=== PATIENT | male | born 1945 | race Caucasian/White ===

== ENCOUNTER 2019-10-29 12:46 | Outpatient (CLI) | payer OTHER | END 2019-10-29 12:47 | disposition home or self-care (01) | LOC: NS 12:46 | PROVIDERS: ATTEND Nurse Practitioner Family | DX: Z71.3 Dietary counseling and surveillance (principal); E11.9 Type 2 diabetes mellitus without complications; Z79.4 Long term (current) use of insulin | CPT/HCPCS: 97802 ==

== ENCOUNTER 2019-11-13 12:44 | Outpatient (CLI) | payer OTHER | END 2019-11-13 12:45 | disposition home or self-care (01) | LOC: NS 12:44 | PROVIDERS: ATTEND Student in an Organized Health Care Education/Training Program | DX: Z71.3 Dietary counseling and surveillance (principal); E11.9 Type 2 diabetes mellitus without complications; Z79.4 Long term (current) use of insulin; I10 Essential (primary) hypertension; E78.5 Hyperlipidemia, unspecified | CPT/HCPCS: 97803 ==

== ENCOUNTER 2022-12-14 16:58 | Outpatient (CLI) | payer OTHER | END 2022-12-14 23:59 | disposition critical access hospital (66) | LOC: EMS 16:58 | DX: R41.0 Disorientation, unspecified (principal); R42 Dizziness and giddiness | CPT/HCPCS: A0425; A0429 ==

== ENCOUNTER 2022-12-14 17:12 | Emergency (ER) | payer OTHER ==
[2022-12-14] MEDS ORDERED: SODIUM CHLORIDE 0.9% 1,000 ML IV STA (17:27)
--- NOTE | 2022-12-14 17:30 | ED Physician Documentation ---
History of Present Illness - Stated complaint Stated Complaint: CONFUSION/DIZZY - Chief complaint Chief Complaint: Neuro - Additonal information Additional information: 77-year-old male presents the emergency department for evaluation of a syncopal event that was preceded by sensation of feeling off balance dizzy and having neck pain. The patient reports he was working in his workshop trying to put things together. Denies that it was strenuous when he began to feel suddenly faint and off balance. He thought that he would sit down. However the next thing he remembers is that he was on the ground. He denies chest pain, back pain or shortness of air. States he had a similar event last week though without syncope. Past medical history most significant for hypertension. Non-smoker. No alcohol use. Not anticoagulated. Patient reports incidental history that about 2 weeks ago he underwent lithotripsy as well as left ureter stent placement in his kidney at [facility] for renal stones. He is aware that he has abnormal kidney function, Though he does not know the specifics. Review of Systems Constitutional: denies: Fever Nose: reports: Reviewed and negative Cardiac: denies: Chest pain / pressure, Palpitations, Pedal edema Respiratory: reports: Reviewed and negative GI: reports: Reviewed and negative : reports: Reviewed and negative Skin: reports: Reviewed and negative Musculoskeletal: reports: Neck pain Neurologic: reports: Syncope. denies: Seizure, Confused, Headache, Head injury, LOC PD PAST MEDICAL HISTORY - Past Medical History Cardiovascular: Hypertension Endocrine/Autoimmune: Type 2 diabetes - Past Surgical History Past Surgical History: Yes General: Colonoscopy - Present Medications Home Medications: Ambulatory Orders Medication Instructions Recorded Confirmed Atorvastatin [Lipitor] 20 mg PO DAILY 11/21/14 12/14/22 Fluticasone [Flonase] 1 spray .ROUTE DAILY 11/21/14 12/14/22 amLODIPine [Norvasc] 10 mg PO DAILY 11/21/14 12/14/22 atenoloL [Atenolol] 100 mg PO DAILY 11/21/14 12/14/22 Alfuzosin HCl [Alfuzosin HCl ER] 10 mg PO DAILY 12/14/22 12/14/22 Insulin Aspart [NovoLOG] 0 units SQ TID 12/14/22 12/14/22 Insulin Glargine [Lantus Solostar] 30 unit SQ HS 12/14/22 12/14/22 Isosorbide Mononitrate [Isosorbide 30 mg PO DAILY 12/14/22 12/14/22 Mononitrate ER] Isosorbide Mononitrate [Isosorbide 60 mg PO DAILY 12/14/22 12/14/22 Mononitrate ER] Levothyroxine [Synthroid] 25 mcg PO QDAC 12/14/22 12/14/22 Loratadine [Claritin] 10 mg PO DAILY 12/14/22 12/14/22 Omeprazole Magnesium 20 mg PO DAILY 12/14/22 12/14/22 - Allergies Allergies/Adverse Reactions: Allergies Allergy/AdvReac Type Severity Reaction Status Date / Time azithromycin [From Zithromax] Allergy Rash Verified 12/14/22 17:49 Penicillins Allergy Unknown Verified 12/14/22 17:49 - Social History Does the pt smoke?: No Smoking Status: Never smoker Does the pt drink ETOH?: No Does the pt have substance abuse?: No PD ED PE NORMAL - General General: Alert and oriented X 3, No acute distress, Well developed/nourished - HEENT HEENT: Atraumatic, Moist mucous membranes - Neck Neck: Supple, no meningeal sign, No adenopathy - Cardiac Cardiac: RRR, No murmur - Respiratory Respiratory: No respiratory distress, Clear bilaterally - Abdomen Abdomen: Normal bowel sounds, Soft - Back Back: No CVA TTP, No spinal TTP - Derm Derm: Normal color, Warm and dry, No rash - Extremities Extremities: No deformity - Neuro Neuro: Alert and oriented X 3, 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 Eye Opening: Spontaneous Motor: Obeys Commands Verbal: Oriented GCS Score: 15 Results - Vitals Vitals: Vital Signs - 24 hr 12/14/22 12/14/22 12/14/22 17:21 17:40 17:56 Temperature 37.1 C 36.6 C Heart Rate 66 68 63 Heart Rate [ 66 Sitting] Heart Rate [ 69 Standing] Heart Rate [ 69 Supine] Respiratory 16 16 Rate Blood Pressure 112/67 112/67 124/61 Blood Pressure 130/70 [Sitting] Blood Pressure 129/60 [Standing] Blood Pressure 111/65 [Supine] O2 Saturation 98 96 96 12/14/22 12/14/22 12/14/22 18:30 19:10 19:26 Temperature Heart Rate 63 66 62 Heart Rate [ Sitting] Heart Rate [ Standing] Heart Rate [ Supine] Respiratory 16 17 15 Rate Blood Pressure 106/55 L 105/88 H 124/63 Blood Pressure [Sitting] Blood Pressure [Standing] Blood Pressure [Supine] O2 Saturation 96 97 96 12/14/22 20:00 Temperature Heart Rate 63 Heart Rate [ Sitting] Heart Rate [ Standing] Heart Rate [ Supine] Respiratory 15 Rate Blood Pressure 113/62 Blood Pressure [Sitting] Blood Pressure [Standing] Blood Pressure [Supine] O2 Saturation 96 Oxygen O2 Source Room air - EKG (time done) 1728 EKG releavant findings:: EKG personally interpreted by author of this note. Relevant findings are: Rate: Rate (enter#) (62) Rhythm: NSR [place]: Normal Intervals: Normal MA. No: Prolonged QT QRS: LVH Ischemia: Non specific changes (inferior leads) Compare to prior EKG: Old EKG unavailable Computer interpretation: Agree with computer - Labs Labs: Laboratory Tests 12/14/22 12/14/22 12/14/22 17:19 17:19 17:19 WBC 7.9 RBC 4.88 Hgb 14.5 Hct 42.7 MCV 87.5 MCH 29.7 MCHC 34.0 RDW 13.2 Plt Count 192 MPV 10.1 Neut # (Auto) 5.0 Lymph # (Auto) 1.9 Walton # (Auto) 0.7 Eos # (Auto) 0.2 Baso # (Auto) 0.1 Absolute Nucleated RBC 0.00 Nucleated RBC % 0.0 PT 12.9 H INR 1.2 Sodium 138 Potassium 3.4 L Chloride 102 Carbon Dioxide 27 Anion Gap 9.0 BUN 18 Creatinine 2.6 H Estimated GFR (MDRD) 24 L Glucose 127 H Calcium 9.1 Total Bilirubin 1.0 AST 32 ALT 29 Alkaline Phosphatase 70 Troponin I High Sens B-Natriuretic Peptide Total Protein 7.0 Albumin 3.5 Globulin 3.5 Albumin/Globulin Ratio 1.0 Lipase 32 12/14/22 12/14/22 12/14/22 17:19 17:19 19:19 WBC RBC Hgb Hct MCV MCH MCHC RDW Plt Count MPV Neut # (Auto) Lymph # (Auto) Walton # (Auto) Eos # (Auto) Baso # (Auto) Absolute Nucleated RBC Nucleated RBC % PT INR Sodium Potassium Chloride Carbon Dioxide Anion Gap BUN Creatinine Estimated GFR (MDRD) Glucose Calcium Total Bilirubin AST ALT Alkaline Phosphatase Troponin I High Sens 27.3 H* 30.4 H* B-Natriuretic Peptide 46 Total Protein Albumin Globulin Albumin/Globulin Ratio Lipase - Rads (name of study) cxr Relevant Findings:: Final report received (No acute cardiopulmonary process) MRA head Relevant Findings:: Final report received (Normal anterior and posterior circulations. No high-grade stenosis or occlusion) carotid US Relevant Findings:: Other (Per fastener technologist. Less than 50% stenosis of bilateral ICA) PD Medical Decision Making - ED course Complexity details: reviewed results, re-evaluated patient, considered differential, d/w patient ED course: 77-year-old male presents to the emergency department for evaluation of what appears to be syncope. He was working in his workshop at home trying to put together small parts when he began to feel suddenly dizzy and off balance. He went to sit in a chair and the next thing he remembers he woke up on the ground next to the chair. He denies that he was having chest pain or shortness of air. Patient has past medical history Mo significant for hypertension. He also underwent left ureter stenting with his urologist at [facility] about 2 weeks ago. He does report to me that he has some chronic kidney disease. On presentation to the emergency department he is alert and well-appearing. His NIHSS score is 0. He was placed on a monitor and found to be in sinus rhythm. His EKG is nonischemic per my interpretation. We did obtain orthostatic blood pressures that were negative for findings of orthostasis. We did obtain a CBC electrolytes and troponin. The CBC showed no acute worrisome findings. His electrolytes do show a normal BUN but a creatinine of 2.6 which I believe is likely chronic based on the patient's history though I cannot corroborate this. There were no other worrisome electrolyte derangements. Patient's initial troponin was 27. On repeat later it was 30. This is essentially static. I believe the troponin is elevated given the chronic kidney disease. Given the fact that it remained static and there were no reports of chest pain and a nonischemic EKG I do not believe that further work- up is warranted through the hospital but given his age and history he would certainly benefit from an outpatient stress test/echocardiogram. However given the reported feeling off balance history an MRA of his head was obtained to rule out findings of cerebral aneurysm or stenosis Or vertebral artery stenosis as a cause of feeling off balance. The MRA as interpreted by the radiologist was ultimately negative. We also obtained carotid ultrasounds Which showed no acute stenosis. Ultimately the patient was able to ambulate well in the hallway without any atax ia noted. As such at this point he is discharged home in stable condition with instructions to follow-up with his PCP for outpatient stress test and echocardiogram as well as to discuss the syncopal episode, chronic kidney disease and mildly elevated troponin Departure - Departure Disposition: 01 Home, Self Care Clinical Impression: Dizzy, Elevated serum creatinine, Elevated troponin Syncope Qualifiers: Syncope type: unspecified Qualified Code(s): R55 - Syncope and collapse Condition: Stable Record reviewed to determine appropriate education?: Yes Follow-Up: Tyler Daugherty MD [Primary Care Provider] - Comments: Tyshawn anne came to the emergency department today because this afternoon your workshop you began to feel dizzy and off balance. You sat in a chair and then you fainted. Here in the emergency department we did do an MRI of the blood vessels in your brain. We do not have anything to suggest stroke, aneurysm or reduced blood flow. The carotid ultrasounds completed of the vessels in your neck also showed no significant stenosis in either carotid artery. Your labs today show that you have an elevated creatinine of 2.6. I believe that this is likely chronic given your history. Your troponin was mildly elevated today. Troponin is a chemical that can be released from the heart when you are having a heart attack however your elevation was not in a significant derangement. I believe the troponin is mildly elevated due to your kidney disease. It is critical that you discuss this ED visit with Dr. Daugherty. You should be referred for an outpatient stress test or echocardiogram as soon as possible. You will also need to discuss this fainting episode with him. It is important that you stay well-hydrated. If at any point you have worsening symptoms, have recurrent syncope, have any vomiting, chest pain or shortness of air you should return immediately to the ER for repeat evaluation NIHSS - Time Time: 17:25 - Level of Consciousness Level of consciousness: (0) Alert, Keenly responsive LOC Questions: (0) Answers both Q's correct LOC Commands: (0) Performs both correctly - Gaze Best Gaze: (0) Normal - Visual Visual: (0) No loss - Facial Palsy Facial Palsy: (0) Normal, symmetrical movement - Motor Arms (both separate) Motor Arm (right): (0) No drift Motor Arm (left): (0) No drift - Motor Legs (both separate) Motor Leg (right): (0) No drift Motor Leg (left): (0) No drift - Limb Ataxia Limb Ataxia: (0) Absent - Sensory Sensory: (0) Normal - Best Language Best Language: (0) No aphasia - Dysarthria Dysarthria: (0) Normal - Extinction and Inattention (formally neg Extinction and inattention: (0) No abnormality - Total Score/Results Total Score/Result: 0
[2022-12-14 17:31] LABS: BASOPHILS # (AUTO) 0.1 10^3/uL (0.0-0.1); BASOPHILS % (AUTO) 0.8 %; EOSINOPHILS # (AUTO) 0.2 10^3/uL (0.0-0.7); EOSINOPHILS % (AUTO) 2.3 %; HCT - HEMATOCRIT 42.7 % (42.0-52.0); HGB - HEMOGLOBIN 14.5 g/dL (14.0-18.0); LYMPHOCYTES # (AUTO) 1.9 10^3/uL (1.5-3.5); LYMPHOCYTES % (AUTO) 24.1 %; MEAN CORPUSCULAR HEMOGLOBIN 29.7 pg (27.0-31.0); MEAN CORPUSCULAR VOLUME 87.5 fL (80.0-94.0); MEAN PLATELET VOLUME 10.1 fL (7.4-11.4); MONOCYTES # (AUTO) 0.7 10^3/uL (0.0-1.0); MONOCYTES % (AUTO) 9.1 %; NEUTROPHILS % (AUTO) 63.3 %; PLT - PLATELET COUNT 192 10^3/uL (130-450); RED BLOOD COUNT 4.88 10^6/uL (4.70-6.10); RED CELL DISTRIBUTION WIDTH 13.2 % (12.0-15.0); WHITE BLOOD COUNT 7.9 x10^3/uL (4.8-10.8)
[2022-12-14] MEDS ORDERED: iohexoL-300 100 ML VIAL ONE (17:37)
[2022-12-14 17:43] LABS: ALBUMIN 3.5 g/dL (3.2-5.5); CALCIUM 9.1 mg/dL (8.5-10.3); CREATININE 2.6 mg/dL (0.6-1.2); POTASSIUM 3.4 mmol/L (3.5-5.0)
--- OUTSIDE RECORDS SUMMARY | 2022-12-14 17:48 | EXTERNAL MEDICAL SUMMARY RPT | Continuity of Care Document ---
:1945 Author Organization [facility] Address [address] [place] [address] Phone Care Team Providers Name Role Phone Unavailable Unavailable Unavailable Tyler Daugherty Unavailable Unavailable Allergies and Intolerances date description facility type (no date) Mild [facility] (unknown) (no date) Penicillins [facility] (unknown) (no date) ciprofloxacin [facility] (unknown) (no date) sulfamethoxazole [facility] (unknown) (no date) trimethoprim [facility] (unknown) Encounters No information. Functional Status No information. Immunizations No information. Medications date description facility 2022-11-13 00:00 Phenazopyridine [facility] Problems date description facility 2022-09-28 14:33 Abnormal findings on diagnostic imaging of [facility] other specified b 2022-09-28 14:33 Elevated prostate specific antigen [PSA ] [facility] 2022-10-01 09:08 Abnormal findings on diagnostic imaging of [facility] other specified b 2022-10-01 09:08 Elevated prostate specific antigen [PSA ] [facility] 2022-10-16 12:02 [facility] 2022-10-16 12:02 Other microscopic hematuria [facility] 2022-10-17 09:02 [facility] 2022-10-17 09:02 Other microscopic hematuria [facility] 2022-10-17 09:03 [facility] 2022-10-17 09:03 Other microscopic hematuria [facility] 2022-10-22 00:00 [facility] 2022-10-22 13:54 [facility] 2022-10-23 08:49 [facility] 2022-10-23 13:45 [facility] 2022-10-25 13:15 [facility] 2022-11-13 11:17 [facility] 2022-11-13 11:20 [facility] 2022-11-13 11:30 [facility] 2022-11-13 13:48 [facility] 2022-11-13 13:48 Presence of urogenital implants [facility] 2022-11-13 13:59 [facility] 2022-11-13 13:59 Presence of urogenital implants [facility] 2022-11-13 15:45 [facility] 2022-11-13 15:45 Presence of urogenital implants [facility] 2022-11-14 10:04 [facility] 2022-11-14 10:04 Presence of urogenital implants [facility] 2022-11-23 09:07 [facility] 2022-11-26 15:25 Urinary tract infection, site not speci [facility] 2022-11-27 01:11 [facility] 2022-11-27 10:20 Urinary tract infection, site not speci [facility] 2022-11-27 13:50 Urinary tract infection, site not speci [facility] 2022-11-29 13:31 Urinary tract infection, site not speci [facility] 2022-12-13 08:42 [facility] Procedures date description facility 2022-10-22 00:00 XR [facility] 2022-11-22 00:00 XR [facility] 2022-12-12 00:00 XR [facility] 2022-10-16 00:00 CT abdomen pelvis wo/w [facility] 2022-11-13 00:00 Extracorporeal Shock Wave Lithotripsy ( Left) [facility] Results/Labs test date author facility value unit interpret ation Result panel 1 (unknown) (no date) (unknown) [facility] ([facility] unknown) Result panel 2 (unknown) (no date) (unknown) [facility] (no value[facility] Result panel 3 (unknown) (no date) (unknown) [facility] ([facility]) Result panel 4 (unknown) (no date) (unknown) [facility] (no value) [facility] unknown) Result panel 5 (unknown) (no (unknown) (unknown) (no value) (units (unk nown) date) unknown) (unknown) (no (unknown) (unknown) [id number] (units (unkn own) date) unknown) (unknown) (no (unknown) (unknown) 09/28/22 (units (unkno wn) date) unknown) (unknown) (no (unknown) (unknown) 1. Marked (units (unkn own) date) prostatomegaly. unknown) Numerous BPH nodules. (unknown) (no (unknown) (unknown) [address] (units (unknown) date) unknown) (unknown) (no (unknown) (unknown) 2. Left mid (units (un known) date) gland unknown) transitional zone observation measuring 0.5 cm. PI-RADS 3. (unknown) (no (unknown) (unknown) 3. No enlarged (units (unknown) date) lymph nodes. unknown) (unknown) (no (unknown) (unknown) ADC may be (units (unk nown) date) performed. unknown) (unknown) (no (unknown) (unknown) Accession (units (unkn own) date) Number: unknown) [id number] (unknown) (no (unknown) (unknown) After (units (unkno wn) date) unknown) (unknown) (no (unknown) (unknown) Age/Sex: 77 / M (units (unknown) date) Date of Service: unknown) (unknown) (no (unknown) (unknown) [place], [place] (units ( unknown) date) [id number] unknown) (unknown) (no (unknown) (unknown) Approved by: (units (u nknown) date) Alexandru Cherry M.D. unknown) on 09/28/2022 at 17:35 (unknown) (no (unknown) (unknown) Bones: Marrow (units ( unknown) date) demonstrates unknown) normal overall signal, without lesions to suggest (unknown) (no (unknown) (unknown) Bowel and (units (unkn own) date) peritoneum: No unknown) pathologic free pelvic fluid. Inferior colon and (unknown) (no (unknown) (unknown) COMPARISON: (units (un known) date) None. unknown) (unknown) (no (unknown) (unknown) Coronal HASTE, (units (unknown) date) axial T1 FSE with unknown) fat saturation, 3-plane nonbreath-hold T2 FSE. (unknown) (no (unknown) (unknown) : 1945 (units (unknown) date) Acct:[id number] unknown) (unknown) (no (unknown) (unknown) Dictated by: (units (u nknown) date) Alexandru hCerry M.D. unknown) on 09/28/2022 at 17:25 (unknown) (no (unknown) (unknown) Diffusion (units (unkn own) date) weighted imaging unknown) (DWI) morphology score: (unknown) (no (unknown) (unknown) Dynamic contrast (units (unknown) date) enhancement unknown) (DCE): (unknown) (no (unknown) (unknown) FINDINGS: (units (unkn own) date) unknown) (unknown) (no (unknown) (unknown) FLASH with fat (units (unknown) date) saturation unknown) through the pelvis. Optional diffusion weighted (unknown) (no (unknown) (unknown) Favor BPH (units (unkn own) date) unknown) (unknown) (no (unknown) (unknown) Genitourinary (units ( unknown) date) system: Bladder unknown) has a trabeculated appearance. Distal ureters (unknown) (no (unknown) (unknown) IMPRESSION: (units (un known) date) unknown) (unknown) (no (unknown) (unknown) INDICATIONS: (units (u nknown) date) Elevated prostate unknown) specific antigen [PSA] (unknown) (no (unknown) (unknown) Image quality: (units (unknown) date) Diffusion unknown) weighted and dynamic contrast enhanced images are (unknown) (no (unknown) (unknown) [facility] (units (unknown) date) unknown) (unknown) (no (unknown) (unknown) Lesion 1: 0.7 x (units (unknown) date) 0.4 cm, (12/22) unknown) (unknown) (no (unknown) (unknown) Lesion 1: 3 (units (un known) date) unknown) (unknown) (no (unknown) (unknown) Lesion 1: 4 (units (un known) date) unknown) (unknown) (no (unknown) (unknown) Lesion 1: Left (units (unknown) date) mid gland unknown) transitional zone (unknown) (no (unknown) (unknown) Lesion 1: Oval (units (unknown) date) unknown) (unknown) (no (unknown) (unknown) Lesion 1: (units (unkn own) date) PI-RADS 3 unknown) (unknown) (no (unknown) (unknown) Lesion 1: (units (unkn own) date) Present unknown) (unknown) (no (unknown) (unknown) Lesion PI-RADS (units (unknown) date) score: unknown) (unknown) (no (unknown) (unknown) Lesion (units (unkno wn) date) description: unknown) (unknown) (no (unknown) (unknown) Lesion (units (unkno wn) date) location(s) unknown) (sector): (unknown) (no (unknown) (unknown) Lesion size(s): (units (unknown) date) unknown) (unknown) (no (unknown) (unknown) Loc: MRI (units (unkno wn) date) unknown) (unknown) (no (unknown) (unknown) Magnetic (units (unkno wn) date) Resonance Report unknown) (unknown) (no (unknown) (unknown) Multiple BPH (units (u nknown) date) unknown) (unknown) (no (unknown) (unknown) No (units (unkno wn) date) unknown) (unknown) (no (unknown) (unknown) Nodes and (units (unkn own) date) vessels: No unknown) pelvic or inguinal adenopathy by size criteria. Iliac (unknown) (no (unknown) (unknown) Ordering (units (unkno wn) date) Provider: unknown) Maxx Roberson MD (unknown) (no (unknown) (unknown) PROCEDURE: MR (units ( unknown) date) PELIS WO/W CON unknown) (unknown) (no (unknown) (unknown) Patient: (units (unkno wn) date) JaxTyshawn R unknown) MR#: [id number] (unknown) (no (unknown) (unknown) Procedure: MR (units ( unknown) date) pelvis wo/w con unknown) (unknown) (no (unknown) (unknown) Prostate: Gland (units (unknown) date) size is 7.8 x 6.6 unknown) x 6.2 cm; ellipsoid gland volume is 166 mL. (unknown) (no (unknown) (unknown) Signed (units (unkno wn) date) unknown) (unknown) (no (unknown) (unknown) Soft tissues: No (units (unknown) date) inguinal hernias. unknown) (unknown) (no (unknown) (unknown) T2 weighted (units (un known) date) imaging (T2WI) unknown) morphology score: (unknown) (no (unknown) (unknown) TECHNIQUE: (units (unk nown) date) unknown) (unknown) (no (unknown) (unknown) are non (units (unkno wn) date) unknown) (unknown) (no (unknown) (unknown) diagnostic. (units (un known) date) unknown) (unknown) (no (unknown) (unknown) distended. (units (unk nown) date) unknown) (unknown) (no (unknown) (unknown) imaging and (units (un known) date) unknown) (unknown) (no (unknown) (unknown) loops are normal (units (unknown) date) in caliber. unknown) Diverticulosis. Normal appendix. (unknown) (no (unknown) (unknown) metastases. (units (un known) date) unknown) (unknown) (no (unknown) (unknown) nodule. (units (unkno wn) date) unknown) (unknown) (no (unknown) (unknown) nodules. (units (unkno wn) date) unknown) (unknown) (no (unknown) (unknown) normal in (units (unkn own) date) caliber. unknown) (unknown) (no (unknown) (unknown) or 2-D (units (unkno wn) date) unknown) (unknown) (no (unknown) (unknown) significant foci (units (unknown) date) of intrinsic T1 unknown) hyperintensity to suggest hemorrhage. (unknown) (no (unknown) (unknown) small bowel (units (un known) date) unknown) (unknown) (no (unknown) (unknown) the (units (unkno wn) date) administration of unknown) contrast, dynamic axial, delayed axial and coronal VIBE (unknown) (no (unknown) (unknown) vessels are (units (un known) date) unknown) Result panel 6 (unknown) (no date) (unknown) (unknown) 1.77 mg/dl (unkn own) (unknown) (no date) (unknown) (unknown) 39 ml/min (unkn own) (unknown) (no date) (unknown) (unknown) 39 ml/min (unkn own) Result panel 7 (unknown) (no (unknown) (unknown) (no value) (units (unk nown) date) unknown) (unknown) (no (unknown) (unknown) [id number] (units (unkno wn) date) unknown) (unknown) (no (unknown) (unknown) 10/22/22 (units (unkno wn) date) unknown) (unknown) (no (unknown) (unknown) Abnormal (units (unkno wn) date) ultrasound of unknown) prostate (unknown) (no (unknown) (unknown) Age/Sex: 77 / M (units (unknown) date) Date of Service: unknown) (unknown) (no (unknown) (unknown) Allergies (units (unkn own) date) unknown) (unknown) (no (unknown) (unknown) [place], [place] (units ( unknown) date) [id number] unknown) (unknown) (no (unknown) (unknown) Asymptomatic (units (u nknown) date) microscopic unknown) hematuria (unknown) (no (unknown) (unknown) Attending Dr: (units ( unknown) date) Maxx Roberson MD unknown) (unknown) (no (unknown) (unknown) BPH (benign (units (un known) date) prostatic unknown) hyperplasia) (Unknown) (unknown) (no (unknown) (unknown) CKD (chronic (units (u nknown) date) kidney disease) unknown) (Unknown) (unknown) (no (unknown) (unknown) Colon polyps (units (u nknown) date) (Unknown) unknown) (unknown) (no (unknown) (unknown) : 1945 (units (unknown) date) Acct:[id number] unknown) (unknown) (no (unknown) (unknown) DOG DANDER Allergy (units (unknown) date) (Mild, Uncoded unknown) 10/22/22 13:07) (unknown) (no (unknown) (unknown) Dept at (units (unkno wn) date) . unknown) (unknown) (no (unknown) (unknown) Diabetes (Unknown) (units (unknown) date) unknown) (unknown) (no (unknown) (unknown) Documented By: (units (unknown) date) Maxx Roberson MD unknown) 10/22/22 1307 (unknown) (no (unknown) (unknown) Draft (units (unkno wn) date) unknown) (unknown) (no (unknown) (unknown) Elevated PSA (units (u nknown) date) unknown) (unknown) (no (unknown) (unknown) Family History (units (unknown) date) (Reviewed 08/21/18 unknown) @ 15:25 by Greer Flores MD) (unknown) (no (unknown) (unknown) Father (units (unknown) date) Cancer unknown) (unknown) (no (unknown) (unknown) GERD (units (unkno wn) date) (gastroesophageal unknown) reflux disease) (Unknown) (unknown) (no (unknown) (unknown) Health Management (units (unknown) date) reviewed with unknown) patient: No (unknown) (no (unknown) (unknown) Health Management (units (unknown) date) unknown) (unknown) (no (unknown) (unknown) Hearing loss (units (u nknown) date) () unknown) (unknown) (no (unknown) (unknown) History of kidney (units (unknown) date) stones unknown) (unknown) (no (unknown) (unknown) History of (units (unk nown) date) tonsillectomy unknown) (unknown) (no (unknown) (unknown) Hypertension (units (u nknown) date) (Unknown) unknown) (unknown) (no (unknown) (unknown) Hypothyroidism (units (unknown) date) (Unknown) unknown) (unknown) (no (unknown) (unknown) Intake Note: (units (u nknown) date) unknown) (unknown) (no (unknown) (unknown) Intake performed (units (unknown) date) by: Valentina Lopez unknown) (unknown) (no (unknown) (unknown) Intake (units (unkno wn) date) unknown) (unknown) (no (unknown) (unknown) Intake- Clincial (units (unknown) date) Staff unknown) (unknown) (no (unknown) (unknown) [facility] (units (unknown) date) unknown) (unknown) (no (unknown) (unknown) Kidney stone (units (u nknown) date) unknown) (unknown) (no (unknown) (unknown) Loc: [facility] (units (unkno wn) date) unknown) (unknown) (no (unknown) (unknown) Medical History (units (unknown) date) (Updated 08/21/22 @ unknown) 10:50 by Maxx Roberson MD) (unknown) (no (unknown) (unknown) Mother (units (unknown) date) Cancer unknown) (unknown) (no (unknown) (unknown) Neuropathy (units (unk nown) date) (Unknown) unknown) (unknown) (no (unknown) (unknown) Osteopenia (units (unk nown) date) (07/2016) unknown) (unknown) (no (unknown) (unknown) PFSH (units (unkno wn) date) unknown) (unknown) (no (unknown) (unknown) Patient: (units (unkno wn) date) Tyshawn Camara unknown) MR#: [id number] (unknown) (no (unknown) (unknown) Penicillins (units (un known) date) Allergy (Unknown, unknown) Verified 10/22/22 13:07) (unknown) (no (unknown) (unknown) Previous (units (unkno wn) date) occupational unknown) history: retired (unknown) (no (unknown) (unknown) Pt present to (units ( unknown) date) follow up with the unknown) provider. (unknown) (no (unknown) (unknown) Reason For Visit (units (unknown) date) unknown) (unknown) (no (unknown) (unknown) Secondhand smoke (units (unknown) date) exposure unknown) (unknown) (no (unknown) (unknown) Signed By: (units (unk nown) date) unknown) (unknown) (no (unknown) (unknown) Smoking Status: (units (unknown) date) Never smoker unknown) (unknown) (no (unknown) (unknown) Social History (units (unknown) date) (Updated 08/20/22 @ unknown) 12:32 by Valentina Lopez RN) (unknown) (no (unknown) (unknown) Stroke (Unknown) (units (unknown) date) unknown) (unknown) (no (unknown) (unknown) Surgical History (units (unknown) date) (Reviewed 03/16/19 unknown) @ 15:33 by Adri Amador DO) (unknown) (no (unknown) (unknown) This note may have (units (unknown) date) been all or unknown) partially generated using voice recognition (unknown) (no (unknown) (unknown) Tobacco Status (units (unknown) date) unknown) (unknown) (no (unknown) (unknown) Type(s) of (units (unk nown) date) exercise: none unknown) (unknown) (no (unknown) (unknown) Urology Office (units (unknown) date) Visit unknown) (unknown) (no (unknown) (unknown) Visit Reasons: (units (unknown) date) review CT + MRI unknown) (unknown) (no (unknown) (unknown) alcohol intake: (units (unknown) date) current unknown) (unknown) (no (unknown) (unknown) caffeine: Yes (units ( unknown) date) unknown) (unknown) (no (unknown) (unknown) ciprofloxacin (units ( unknown) date) Allergy (Unknown, unknown) Verified 10/22/22 13:07) (unknown) (no (unknown) (unknown) have occurred. If (units (unknown) date) there are any unknown) questions, please contact the Medical Records (unknown) (no (unknown) (unknown) household members: (units (unknown) date) spouse unknown) (unknown) (no (unknown) (unknown) marital status: (units (unknown) date) unknown) (unknown) (no (unknown) (unknown) may occur. (units (unk nown) date) Occasional unknown) wrong-word or 'sound-alike' substitutions may have (unknown) (no (unknown) (unknown) number of (units (unkn own) date) children: 3 unknown) (unknown) (no (unknown) (unknown) occupational (units (u nknown) date) status: other unknown) (unknown) (no (unknown) (unknown) occurred due to (units (unknown) date) the inherent unknown) limitations of voice recognition software. Please (unknown) (no (unknown) (unknown) read the note (units ( unknown) date) carefully and unknown) recognize, using context, where these substitutions (unknown) (no (unknown) (unknown) second hand (units (un known) date) exposure: No unknown) (unknown) (no (unknown) (unknown) software. Although (units (unknown) date) every effort is unknown) made to edit content, business management consultant errors (unknown) (no (unknown) (unknown) substance use (units ( unknown) date) type: does not use unknown) (unknown) (no (unknown) (unknown) sulfamethoxazole (units (unknown) date) [From Bactrim] unknown) Allergy (Unknown, Verified 10/22/22 13:07) (unknown) (no (unknown) (unknown) trimethoprim [From (units (unknown) date) Bactrim] Allergy unknown) (Unknown, Verified 10/22/22 13:07) Result panel 8 (unknown) (no (unknown) (unknown) (no value) (units (unk nown) date) unknown) (unknown) (no (unknown) (unknown) [id number] (units (unkno wn) date) unknown) (unknown) (no (unknown) (unknown) 10/22/22 (units (unkno wn) date) unknown) (unknown) (no (unknown) (unknown) 10/22/22] (units (unkn own) date) unknown) (unknown) (no (unknown) (unknown) 01/31/21 [Rx (units (u nknown) date) Confirmed 10/22/22] unknown) (unknown) (no (unknown) (unknown) Abnormal (units (unkno wn) date) ultrasound of unknown) prostate (unknown) (no (unknown) (unknown) Accuchek Marcella (units (unknown) date) lancets - Softclix unknown) #250 ea 11/18/20 [Rx Confirmed 10/22/22] (unknown) (no (unknown) (unknown) Age/Sex: 77 / M (units (unknown) date) Date of Service: unknown) (unknown) (no (unknown) (unknown) Alcohol Prep Pads (units (unknown) date) #250 ea 11/18/20 unknown) [Rx Confirmed 10/22/22] (unknown) (no (unknown) (unknown) Allergies (units (unkn own) date) unknown) (unknown) (no (unknown) (unknown) [place], [place] (units ( unknown) date) [id number] unknown) (unknown) (no (unknown) (unknown) Asymptomatic (units (u nknown) date) microscopic unknown) hematuria (unknown) (no (unknown) (unknown) Attending Dr: (units ( unknown) date) Maxx Roberson MD unknown) (unknown) (no (unknown) (unknown) BPH (benign (units (un known) date) prostatic unknown) hyperplasia) (Unknown) (unknown) (no (unknown) (unknown) CKD (chronic (units (u nknown) date) kidney disease) unknown) (Unknown) (unknown) (no (unknown) (unknown) Colon polyps (units (u nknown) date) (Unknown) unknown) (unknown) (no (unknown) (unknown) Confirmed (units (unkn own) date) 10/22/22] unknown) (unknown) (no (unknown) (unknown) : 1945 (units (unknown) date) Acct:[id number] unknown) (unknown) (no (unknown) (unknown) DOG DANDER Allergy (units (unknown) date) (Mild, Uncoded unknown) 10/22/22 13:07) (unknown) (no (unknown) (unknown) Dept at (units (unkno wn) date) . unknown) (unknown) (no (unknown) (unknown) Diabetes (Unknown) (units (unknown) date) unknown) (unknown) (no (unknown) (unknown) Diabetic Shoes + (units (unknown) date) Insoles #4 ea unknown) 08/28/22 [Rx Confirmed 10/22/22] (unknown) (no (unknown) (unknown) Documented By: (units (unknown) date) Maxx Roberson MD unknown) 10/22/22 1307 (unknown) (no (unknown) (unknown) Draft (units (unkno wn) date) unknown) (unknown) (no (unknown) (unknown) Elevated PSA (units (u nknown) date) unknown) (unknown) (no (unknown) (unknown) Family History (units (unknown) date) (Reviewed 08/21/18 unknown) @ 15:25 by Greer Flores MD) (unknown) (no (unknown) (unknown) Father (units (unknown) date) Cancer unknown) (unknown) (no (unknown) (unknown) GERD (units (unkno wn) date) (gastroesophageal unknown) reflux disease) (Unknown) (unknown) (no (unknown) (unknown) Glucose: Test (units ( unknown) date) Strips #250 ea unknown) 11/18/20 [Rx Confirmed 10/22/22] (unknown) (no (unknown) (unknown) Health Management (units (unknown) date) reviewed with unknown) patient: No (unknown) (no (unknown) (unknown) Health Management (units (unknown) date) unknown) (unknown) (no (unknown) (unknown) Hearing loss (units (u nknown) date) () unknown) (unknown) (no (unknown) (unknown) History of kidney (units (unknown) date) stones unknown) (unknown) (no (unknown) (unknown) History of (units (unk nown) date) tonsillectomy unknown) (unknown) (no (unknown) (unknown) Hypertension (units (u nknown) date) (Unknown) unknown) (unknown) (no (unknown) (unknown) Hypothyroidism (units (unknown) date) (Unknown) unknown) (unknown) (no (unknown) (unknown) Insulin Aspart (units (unknown) date) sliding scale unknown) SUBCUT 10/27/19 [History Confirmed 10/22/22] (unknown) (no (unknown) (unknown) Intake Note: (units (u nknown) date) unknown) (unknown) (no (unknown) (unknown) Intake performed (units (unknown) date) by: Valentina Lopez unknown) (unknown) (no (unknown) (unknown) Intake (units (unkno wn) date) unknown) (unknown) (no (unknown) (unknown) Intake- Clincial (units (unknown) date) Staff unknown) (unknown) (no (unknown) (unknown) [facility] (units (unknown) date) unknown) (unknown) (no (unknown) (unknown) Kidney stone (units (u nknown) date) unknown) (unknown) (no (unknown) (unknown) Loc: [facility] (units (unkno wn) date) unknown) (unknown) (no (unknown) (unknown) Medical History (units (unknown) date) (Updated 08/21/22 @ unknown) 10:50 by Maxx Roberson MD) (unknown) (no (unknown) (unknown) Medications (units (un known) date) unknown) (unknown) (no (unknown) (unknown) Mother (units (unknown) date) Cancer unknown) (unknown) (no (unknown) (unknown) Neuropathy (units (unk nown) date) (Unknown) unknown) (unknown) (no (unknown) (unknown) Osteopenia (units (unk nown) date) (07/2016) unknown) (unknown) (no (unknown) (unknown) PFSH (units (unkno wn) date) unknown) (unknown) (no (unknown) (unknown) Patient: (units (unkno wn) date) Tyshawn Camara unknown) MR#: [id number] (unknown) (no (unknown) (unknown) Penicillins (units (un known) date) Allergy (Unknown, unknown) Verified 10/22/22 13:07) (unknown) (no (unknown) (unknown) Previous (units (unkno wn) date) occupational unknown) history: retired (unknown) (no (unknown) (unknown) Pt present to (units ( unknown) date) follow up with the unknown) provider regarding imaging results. (unknown) (no (unknown) (unknown) QAC #30 mL (units (unk nown) date) 11/02/20 [Rx unknown) Confirmed 10/22/22] (unknown) (no (unknown) (unknown) Reason For Visit (units (unknown) date) unknown) (unknown) (no (unknown) (unknown) Relief) 1 spray (units (unknown) date) intranasal QDAY ##3 unknown) 02/14/21 [Rx Confirmed 10/22/22] (unknown) (no (unknown) (unknown) Secondhand smoke (units (unknown) date) exposure unknown) (unknown) (no (unknown) (unknown) Signed By: (units (unk nown) date) unknown) (unknown) (no (unknown) (unknown) Smoking Status: (units (unknown) date) Never smoker unknown) (unknown) (no (unknown) (unknown) Social History (units (unknown) date) (Updated 08/20/22 @ unknown) 12:32 by Valentina Lopez RN) (unknown) (no (unknown) (unknown) Stroke (Unknown) (units (unknown) date) unknown) (unknown) (no (unknown) (unknown) Surgical History (units (unknown) date) (Reviewed 03/16/19 unknown) @ 15:33 by Adri Amador DO) (unknown) (no (unknown) (unknown) This note may have (units (unknown) date) been all or unknown) partially generated using voice recognition (unknown) (no (unknown) (unknown) Tobacco Status (units (unknown) date) unknown) (unknown) (no (unknown) (unknown) Type(s) of (units (unk nown) date) exercise: none unknown) (unknown) (no (unknown) (unknown) Urology Office (units (unknown) date) Visit unknown) (unknown) (no (unknown) (unknown) Visit Reasons: (units (unknown) date) review CT + MRI unknown) (unknown) (no (unknown) (unknown) [Rx Confirmed (units ( unknown) date) 10/22/22] unknown) (unknown) (no (unknown) (unknown) alcohol intake: (units (unknown) date) current unknown) (unknown) (no (unknown) (unknown) alendronate 35 mg (units (unknown) date) tablet 35 mg PO Q unknown) WEEK #12 tabs 11/18/20 [Rx Confirmed (unknown) (no (unknown) (unknown) alfuzosin 10 mg (units (unknown) date) tablet,extended unknown) release 24 hr 10 mg PO QDAY #90 tabs 08/19/20 (unknown) (no (unknown) (unknown) amlodipine 10 mg (units (unknown) date) tablet 10 mg PO Q unknown) DAY #90 tabs 08/19/20 [Rx Confirmed 10/22/22] (unknown) (no (unknown) (unknown) atenolol 100 mg (units (unknown) date) tablet 100 mg PO Q unknown) DAY #90 tabs 08/19/20 [Rx Confirmed 10/22/22] (unknown) (no (unknown) (unknown) atorvastatin 20 mg (units (unknown) date) tablet (Lipitor) 20 unknown) mg PO HS #90 tabs 08/19/20 [Rx Confirmed (unknown) (no (unknown) (unknown) caffeine: Yes (units ( unknown) date) unknown) (unknown) (no (unknown) (unknown) ciprofloxacin (units ( unknown) date) Allergy (Unknown, unknown) Verified 10/22/22 13:07) (unknown) (no (unknown) (unknown) epinephrine 0.3 (units (unknown) date) mg/0.3 mL unknown) injection, auto-injector (EpiPen 2-Donte) 0.3 mg (0.3 (unknown) (no (unknown) (unknown) fluticasone (units (un known) date) propionate 50 unknown) mcg/actuation nasal spray,suspension (Flonase Allergy (unknown) (no (unknown) (unknown) have occurred. If (units (unknown) date) there are any unknown) questions, please contact the Medical Records (unknown) (no (unknown) (unknown) household members: (units (unknown) date) spouse unknown) (unknown) (no (unknown) (unknown) insulin aspart (units (unknown) date) U-100 100 unit/mL unknown) subcutaneous solution 25 unit (0.25 mL) SUBCUT (unknown) (no (unknown) (unknown) insulin glargine (units (unknown) date) 100 unit/mL unknown) subcutaneous solution (Lantus U-100 Insulin) 20 (unknown) (no (unknown) (unknown) insulin (units (unkno wn) date) syringe-needle unknown) U-100 1 mL 29 gauge x 1/2' (Advocate Syringes) #100 ea (unknown) (no (unknown) (unknown) isosorbide (units (unk nown) date) mononitrate 30 mg unknown) tablet,extended release 24 hr 60 mg PO DAILY #90 (unknown) (no (unknown) (unknown) levothyroxine 112 (units (unknown) date) mcg tablet 112 mcg unknown) PO QAM #90 tabs 02/04/20 [Rx Confirmed (unknown) (no (unknown) (unknown) loratadine 10 mg (units (unknown) date) tablet 10 mg PO unknown) DAILY 07/10/22 [History Confirmed 10/22/22] (unknown) (no (unknown) (unknown) mL) IM ONCE #2 ea (units (unknown) date) 06/19/19 [Rx unknown) Confirmed 10/22/22] (unknown) (no (unknown) (unknown) marital status: (units (unknown) date) unknown) (unknown) (no (unknown) (unknown) may occur. (units (unk nown) date) Occasional unknown) wrong-word or 'sound-alike' substitutions may have (unknown) (no (unknown) (unknown) number of (units (unkn own) date) children: 3 unknown) (unknown) (no (unknown) (unknown) occupational (units (u nknown) date) status: other unknown) (unknown) (no (unknown) (unknown) occurred due to (units (unknown) date) the inherent unknown) limitations of voice recognition software. Please (unknown) (no (unknown) (unknown) omeprazole 20 mg (units (unknown) date) capsule,delayed unknown) release 40 mg PO DAILY #90 caps 07/10/22 [Rx (unknown) (no (unknown) (unknown) read the note (units ( unknown) date) carefully and unknown) recognize, using context, where these substitutions (unknown) (no (unknown) (unknown) second hand (units (un known) date) exposure: No unknown) (unknown) (no (unknown) (unknown) software. Although (units (unknown) date) every effort is unknown) made to edit content, business management consultant errors (unknown) (no (unknown) (unknown) substance use (units ( unknown) date) type: does not use unknown) (unknown) (no (unknown) (unknown) sulfamethoxazole (units (unknown) date) [From Bactrim] unknown) Allergy (Unknown, Verified 10/22/22 13:07) (unknown) (no (unknown) (unknown) tabs 07/10/22 [Rx (units (unknown) date) Confirmed 10/22/22] unknown) (unknown) (no (unknown) (unknown) trimethoprim [From (units (unknown) date) Bactrim] Allergy unknown) (Unknown, Verified 10/22/22 13:07) (unknown) (no (unknown) (unknown) unit (0.2 mL) (units ( unknown) date) SUBCUT HS #3 vials unknown) 02/10/20 [Rx Confirmed 10/22/22] Result panel 9 (unknown) (no (unknown) (unknown) (no value) (units (unk nown) date) unknown) (unknown) (no (unknown) (unknown) 'breathing (units (unk nown) date) exercises to unknown) relax.' Pt urged to follow up with PCP if BP remains (unknown) (no (unknown) (unknown) [phone] (units (unkno wn) date) unknown) (unknown) (no (unknown) (unknown) 10/22/22 (units (unkno wn) date) unknown) (unknown) (no (unknown) (unknown) 10/22/22] (units (unkn own) date) unknown) (unknown) (no (unknown) (unknown) 01/31/21 [Rx (units (u nknown) date) Confirmed 10/22/22] unknown) (unknown) (no (unknown) (unknown) 13:13 10/22/22 (units (unknown) date) unknown) (unknown) (no (unknown) (unknown) 13:14 (units (unkno wn) date) unknown) (unknown) (no (unknown) (unknown) Abnormal (units (unkno wn) date) ultrasound of unknown) prostate (unknown) (no (unknown) (unknown) Accuchek Marcella (units (unknown) date) lancets - Softclix unknown) #250 ea 11/18/20 [Rx Confirmed 10/22/22] (unknown) (no (unknown) (unknown) Age/Sex: 77 / M (units (unknown) date) Date of Service: unknown) (unknown) (no (unknown) (unknown) Alcohol Prep Pads (units (unknown) date) #250 ea 11/18/20 unknown) [Rx Confirmed 10/22/22] (unknown) (no (unknown) (unknown) Allergies (units (unkn own) date) unknown) (unknown) (no (unknown) (unknown) JERMAINE Edward (units ( unknown) date) [id number] unknown) (unknown) (no (unknown) (unknown) Asymptomatic (units (u nknown) date) microscopic unknown) hematuria (unknown) (no (unknown) (unknown) Attending Dr: (units ( unknown) date) Maxx Roberson MD unknown) (unknown) (no (unknown) (unknown) BMI 31.9 (units (unkno wn) date) unknown) (unknown) (no (unknown) (unknown) BP 163/70 H 151/77 (units (unknown) date) H unknown) (unknown) (no (unknown) (unknown) BPH (benign (units (un known) date) prostatic unknown) hyperplasia) (Unknown) (unknown) (no (unknown) (unknown) Blood Pressure (units (unknown) date) Location Lt unknown) brachial Lt brachial (unknown) (no (unknown) (unknown) CKD (chronic (units (u nknown) date) kidney disease) unknown) (Unknown) (unknown) (no (unknown) (unknown) Colon polyps (units (u nknown) date) (Unknown) unknown) (unknown) (no (unknown) (unknown) Confirmed (units (unkn own) date) 10/22/22] unknown) (unknown) (no (unknown) (unknown) : 1945 (units (unknown) date) Acct:[id number] unknown) (unknown) (no (unknown) (unknown) DOG DANDER Allergy (units (unknown) date) (Mild, Uncoded unknown) 10/22/22 13:07) (unknown) (no (unknown) (unknown) Dept at (units (unkno wn) date) . unknown) (unknown) (no (unknown) (unknown) Diabetes (Unknown) (units (unknown) date) unknown) (unknown) (no (unknown) (unknown) Diabetic Shoes + (units (unknown) date) Insoles #4 ea unknown) 08/28/22 [Rx Confirmed 10/22/22] (unknown) (no (unknown) (unknown) Documented By: (units (unknown) date) Maxx Roberson MD unknown) 10/22/22 1307 (unknown) (no (unknown) (unknown) Draft (units (unkno wn) date) unknown) (unknown) (no (unknown) (unknown) Elevated PSA (units (u nknown) date) unknown) (unknown) (no (unknown) (unknown) Family History (units (unknown) date) (Reviewed 08/21/18 unknown) @ 15:25 by Greer Flores MD) (unknown) (no (unknown) (unknown) Father (units (unknown) date) Cancer unknown) (unknown) (no (unknown) (unknown) GERD (units (unkno wn) date) (gastroesophageal unknown) reflux disease) (Unknown) (unknown) (no (unknown) (unknown) Glucose: Test (units ( unknown) date) Strips #250 ea unknown) 11/18/20 [Rx Confirmed 10/22/22] (unknown) (no (unknown) (unknown) Health Management (units (unknown) date) reviewed with unknown) patient: No (unknown) (no (unknown) (unknown) Health Management (units (unknown) date) unknown) (unknown) (no (unknown) (unknown) Hearing loss (units (u nknown) date) () unknown) (unknown) (no (unknown) (unknown) Height 5 ft 7 in (units (unknown) date) unknown) (unknown) (no (unknown) (unknown) History of kidney (units (unknown) date) stones unknown) (unknown) (no (unknown) (unknown) History of (units (unk nown) date) tonsillectomy unknown) (unknown) (no (unknown) (unknown) Hypertension (units (u nknown) date) (Unknown) unknown) (unknown) (no (unknown) (unknown) Hypothyroidism (units (unknown) date) (Unknown) unknown) (unknown) (no (unknown) (unknown) Insulin Aspart (units (unknown) date) sliding scale unknown) SUBCUT 10/27/19 [History Confirmed 10/22/22] (unknown) (no (unknown) (unknown) Intake Note: (units (u nknown) date) unknown) (unknown) (no (unknown) (unknown) Intake performed (units (unknown) date) by: Valentina Lopez unknown) (unknown) (no (unknown) (unknown) Intake (units (unkno wn) date) unknown) (unknown) (no (unknown) (unknown) Intake- Clincial (units (unknown) date) Staff unknown) (unknown) (no (unknown) (unknown) [facility] (units (unknown) date) unknown) (unknown) (no (unknown) (unknown) Kidney stone (units (u nknown) date) unknown) (unknown) (no (unknown) (unknown) Loc: [facility] (units (unkno wn) date) unknown) (unknown) (no (unknown) (unknown) Medical History (units (unknown) date) (Updated 08/21/22 @ unknown) 10:50 by Maxx Roberson MD) (unknown) (no (unknown) (unknown) Medications (units (un known) date) unknown) (unknown) (no (unknown) (unknown) Mother (units (unknown) date) Cancer unknown) (unknown) (no (unknown) (unknown) Neuropathy (units (unk nown) date) (Unknown) unknown) (unknown) (no (unknown) (unknown) Osteopenia (units (unk nown) date) (07/2016) unknown) (unknown) (no (unknown) (unknown) PFSH (units (unkno wn) date) unknown) (unknown) (no (unknown) (unknown) Patient: (units (unkno wn) date) Tyshawn Camara unknown) MR#: [id number] (unknown) (no (unknown) (unknown) Penicillins (units (un known) date) Allergy (Unknown, unknown) Verified 10/22/22 13:07) (unknown) (no (unknown) (unknown) Position Sitting (units (unknown) date) Sitting unknown) (unknown) (no (unknown) (unknown) Previous (units (unkno wn) date) occupational unknown) history: retired (unknown) (no (unknown) (unknown) Pt present to (units ( unknown) date) follow up with the unknown) provider regarding imaging results. Pt's BP (unknown) (no (unknown) (unknown) Pulse 61 61 (units (un known) date) unknown) (unknown) (no (unknown) (unknown) Pulse Source NIBP (units (unknown) date) NIBP unknown) (unknown) (no (unknown) (unknown) QAC #30 mL (units (unk nown) date) 11/02/20 [Rx unknown) Confirmed 10/22/22] (unknown) (no (unknown) (unknown) Reason For Visit (units (unknown) date) unknown) (unknown) (no (unknown) (unknown) Relief) 1 spray (units (unknown) date) intranasal QDAY ##3 unknown) 02/14/21 [Rx Confirmed 10/22/22] (unknown) (no (unknown) (unknown) Respiration 17 16 (units (unknown) date) unknown) (unknown) (no (unknown) (unknown) Secondhand smoke (units (unknown) date) exposure unknown) (unknown) (no (unknown) (unknown) Signed By: (units (unk nown) date) unknown) (unknown) (no (unknown) (unknown) Smoking Status: (units (unknown) date) Never smoker unknown) (unknown) (no (unknown) (unknown) Social History (units (unknown) date) (Updated 08/20/22 @ unknown) 12:32 by Valentina Lopez RN) (unknown) (no (unknown) (unknown) Stroke (Unknown) (units (unknown) date) unknown) (unknown) (no (unknown) (unknown) Surgical History (units (unknown) date) (Reviewed 03/16/19 unknown) @ 15:33 by Adri Amador DO) (unknown) (no (unknown) (unknown) This note may have (units (unknown) date) been all or unknown) partially generated using voice recognition (unknown) (no (unknown) (unknown) Tobacco Status (units (unknown) date) unknown) (unknown) (no (unknown) (unknown) Type(s) of (units (unk nown) date) exercise: none unknown) (unknown) (no (unknown) (unknown) Urology Office (units (unknown) date) Visit unknown) (unknown) (no (unknown) (unknown) Visit Reasons: (units (unknown) date) review CT + MRI unknown) (unknown) (no (unknown) (unknown) Vitals (units (unkno wn) date) unknown) (unknown) (no (unknown) (unknown) Weight 204 lb (units ( unknown) date) unknown) (unknown) (no (unknown) (unknown) [Rx Confirmed (units ( unknown) date) 10/22/22] unknown) (unknown) (no (unknown) (unknown) alcohol intake: (units (unknown) date) current unknown) (unknown) (no (unknown) (unknown) alendronate 35 mg (units (unknown) date) tablet 35 mg PO Q unknown) WEEK #12 tabs 11/18/20 [Rx Confirmed (unknown) (no (unknown) (unknown) alfuzosin 10 mg (units (unknown) date) tablet,extended unknown) release 24 hr 10 mg PO QDAY #90 tabs 08/19/20 (unknown) (no (unknown) (unknown) amlodipine 10 mg (units (unknown) date) tablet 10 mg PO Q unknown) DAY #90 tabs 08/19/20 [Rx Confirmed 10/22/22] (unknown) (no (unknown) (unknown) atenolol 100 mg (units (unknown) date) tablet 100 mg PO Q unknown) DAY #90 tabs 08/19/20 [Rx Confirmed 10/22/22] (unknown) (no (unknown) (unknown) atorvastatin 20 mg (units (unknown) date) tablet (Lipitor) 20 unknown) mg PO HS #90 tabs 08/19/20 [Rx Confirmed (unknown) (no (unknown) (unknown) caffeine: Yes (units ( unknown) date) unknown) (unknown) (no (unknown) (unknown) ciprofloxacin (units ( unknown) date) Allergy (Unknown, unknown) Verified 10/22/22 13:07) (unknown) (no (unknown) (unknown) elevated and pt (units (unknown) date) states his BP is unknown) usually lower at home when he does his (unknown) (no (unknown) (unknown) elevated with (units ( unknown) date) readings at home. unknown) (unknown) (no (unknown) (unknown) epinephrine 0.3 (units (unknown) date) mg/0.3 mL unknown) injection, auto-injector (EpiPen 2-Donte) 0.3 mg (0.3 (unknown) (no (unknown) (unknown) fluticasone (units (un known) date) propionate 50 unknown) mcg/actuation nasal spray,suspension (Flonase Allergy (unknown) (no (unknown) (unknown) have occurred. If (units (unknown) date) there are any unknown) questions, please contact the Medical Records (unknown) (no (unknown) (unknown) household members: (units (unknown) date) spouse unknown) (unknown) (no (unknown) (unknown) insulin aspart (units (unknown) date) U-100 100 unit/mL unknown) subcutaneous solution 25 unit (0.25 mL) SUBCUT (unknown) (no (unknown) (unknown) insulin glargine (units (unknown) date) 100 unit/mL unknown) subcutaneous solution (Lantus U-100 Insulin) 20 (unknown) (no (unknown) (unknown) insulin (units (unkno wn) date) syringe-needle unknown) U-100 1 mL 29 gauge x 1/2' (Advocate Syringes) #100 ea (unknown) (no (unknown) (unknown) isosorbide (units (unk nown) date) mononitrate 30 mg unknown) tablet,extended release 24 hr 60 mg PO DAILY #90 (unknown) (no (unknown) (unknown) levothyroxine 112 (units (unknown) date) mcg tablet 112 mcg unknown) PO QAM #90 tabs 02/04/20 [Rx Confirmed (unknown) (no (unknown) (unknown) loratadine 10 mg (units (unknown) date) tablet 10 mg PO unknown) DAILY 07/10/22 [History Confirmed 10/22/22] (unknown) (no (unknown) (unknown) mL) IM ONCE #2 ea (units (unknown) date) 06/19/19 [Rx unknown) Confirmed 10/22/22] (unknown) (no (unknown) (unknown) marital status: (units (unknown) date) unknown) (unknown) (no (unknown) (unknown) may occur. (units (unk nown) date) Occasional unknown) wrong-word or 'sound-alike' substitutions may have (unknown) (no (unknown) (unknown) number of (units (unkn own) date) children: 3 unknown) (unknown) (no (unknown) (unknown) occupational (units (u nknown) date) status: other unknown) (unknown) (no (unknown) (unknown) occurred due to (units (unknown) date) the inherent unknown) limitations of voice recognition software. Please (unknown) (no (unknown) (unknown) omeprazole 20 mg (units (unknown) date) capsule,delayed unknown) release 40 mg PO DAILY #90 caps 07/10/22 [Rx (unknown) (no (unknown) (unknown) read the note (units ( unknown) date) carefully and unknown) recognize, using context, where these substitutions (unknown) (no (unknown) (unknown) second hand (units (un known) date) exposure: No unknown) (unknown) (no (unknown) (unknown) software. Although (units (unknown) date) every effort is unknown) made to edit content, business management consultant errors (unknown) (no (unknown) (unknown) substance use (units ( unknown) date) type: does not use unknown) (unknown) (no (unknown) (unknown) sulfamethoxazole (units (unknown) date) [From Bactrim] unknown) Allergy (Unknown, Verified 10/22/22 13:07) (unknown) (no (unknown) (unknown) tabs 07/10/22 [Rx (units (unknown) date) Confirmed 10/22/22] unknown) (unknown) (no (unknown) (unknown) trimethoprim [From (units (unknown) date) Bactrim] Allergy unknown) (Unknown, Verified 10/22/22 13:07) (unknown) (no (unknown) (unknown) unit (0.2 mL) (units ( unknown) date) SUBCUT HS #3 vials unknown) 02/10/20 [Rx Confirmed 10/22/22] Result panel 10 (unknown) (no (unknown) (unknown) (no value) (units (unk nown) date) unknown) (unknown) (no (unknown) (unknown) [id number] (units (unkn own) date) unknown) (unknown) (no (unknown) (unknown) 10/22/22 (units (unkno wn) date) unknown) (unknown) (no (unknown) (unknown) [address] [place] [address] (units (unknown) date) unknown) (unknown) (no (unknown) (unknown) Accession (units (unkn own) date) Number: unknown) [id number] (unknown) (no (unknown) (unknown) Age/Sex: 77 / M (units (unknown) date) Date of Service: unknown) (unknown) (no (unknown) (unknown) [place], [place] (units ( unknown) date) [id number] unknown) (unknown) (no (unknown) (unknown) Approved by: (units (u nknown) date) Jeffery Panda, unknown) Marian on 10/22/2022 at 16:22 (unknown) (no (unknown) (unknown) Bones: No (units (unkn own) date) suspicious bony unknown) lesions. (unknown) (no (unknown) (unknown) Bowel: Bowel gas (units (unknown) date) pattern is unknown) normal. (unknown) (no (unknown) (unknown) COMPARISON: (units (un known) date) [facility], unknown) CT, CT ABDOMEN PELVIS WO/W CON, 10/16/2022, 13:35. (unknown) (no (unknown) (unknown) : 1945 (units (unknown) date) Acct:[id number] unknown) (unknown) (no (unknown) (unknown) FINDINGS: (units (unkn own) date) unknown) (unknown) (no (unknown) (unknown) Fecal debris (units (u nknown) date) unknown) (unknown) (no (unknown) (unknown) IMPRESSION: 8 mm (units (unknown) date) left renal unknown) calculus (unknown) (no (unknown) (unknown) INDICATIONS: (units (u nknown) date) Left kidney stone unknown) (unknown) (no (unknown) (unknown) [facility] (units (unknown) date) unknown) (unknown) (no (unknown) (unknown) Loc: DI (units (unkno wn) date) unknown) (unknown) (no (unknown) (unknown) Ordering (units (unkno wn) date) Provider: unknown) Maxx Roberson MD (unknown) (no (unknown) (unknown) PROCEDURE: XR (units ( unknown) date) KUB unknown) (unknown) (no (unknown) (unknown) Patient: (units (unkno wn) date) Tyshawn Camara unknown) MR#: [id number] (unknown) (no (unknown) (unknown) Procedure: XR (units ( unknown) date) KUB unknown) (unknown) (no (unknown) (unknown) Signed (units (unkno wn) date) unknown) (unknown) (no (unknown) (unknown) Soft tissues: 8 (units (unknown) date) mm calcification unknown) projects over the lower pole left kidney. (unknown) (no (unknown) (unknown) Surgical changes (units (unknown) date) and devices: unknown) None. (unknown) (no (unknown) (unknown) TECHNIQUE: One (units (unknown) date) view of the unknown) abdomen acquired. (unknown) (no (unknown) (unknown) XRay Report (units (un known) date) unknown) (unknown) (no (unknown) (unknown) present in the (units (unknown) date) right colon. unknown) Result panel 11 (unknown) (no (unknown) (unknown) (no value) (units (unk nown) date) unknown) (unknown) (no (unknown) (unknown) 'breathing (units (unk nown) date) exercises to unknown) relax.' Pt urged to follow up with PCP if BP remains (unknown) (no (unknown) (unknown) [phone] (units (unkno wn) date) unknown) (unknown) (no (unknown) (unknown) 10/22/22 (units (unkno wn) date) unknown) (unknown) (no (unknown) (unknown) 10/22/22] (units (unkn own) date) unknown) (unknown) (no (unknown) (unknown) 01/31/21 [Rx (units (u nknown) date) Confirmed 10/22/22] unknown) (unknown) (no (unknown) (unknown) 13:13 10/22/22 (units (unknown) date) unknown) (unknown) (no (unknown) (unknown) 13:14 (units (unkno wn) date) unknown) (unknown) (no (unknown) (unknown) Abnormal (units (unkno wn) date) ultrasound of unknown) prostate (unknown) (no (unknown) (unknown) Accuchek Marcella (units (unknown) date) lancets - Softclix unknown) #250 ea 11/18/20 [Rx Confirmed 10/22/22] (unknown) (no (unknown) (unknown) Add'l Complaint: (units (unknown) date) unknown) (unknown) (no (unknown) (unknown) Age/Sex: 77 / M (units (unknown) date) Date of Service: unknown) (unknown) (no (unknown) (unknown) Alcohol Prep Pads (units (unknown) date) #250 ea 11/18/20 unknown) [Rx Confirmed 10/22/22] (unknown) (no (unknown) (unknown) Allergies (units (unkn own) date) unknown) (unknown) (no (unknown) (unknown) [place], [place] (units ( unknown) date) [id number] unknown) (unknown) (no (unknown) (unknown) Assessment + Plan (units (unknown) date) unknown) (unknown) (no (unknown) (unknown) Asymptomatic (units (u nknown) date) microscopic unknown) hematuria (unknown) (no (unknown) (unknown) Attending Dr: (units ( unknown) date) Maxx Roberson MD unknown) (unknown) (no (unknown) (unknown) BMI 31.9 (units (unkno wn) date) unknown) (unknown) (no (unknown) (unknown) BP 163/70 H 151/77 (units (unknown) date) H unknown) (unknown) (no (unknown) (unknown) BPH (benign (units (un known) date) prostatic unknown) hyperplasia) (Unknown) (unknown) (no (unknown) (unknown) Blood Pressure (units (unknown) date) Location Lt unknown) brachial Lt brachial (unknown) (no (unknown) (unknown) CKD (chronic (units (u nknown) date) kidney disease) unknown) (Unknown) (unknown) (no (unknown) (unknown) Chief Complaint (units (unknown) date) unknown) (unknown) (no (unknown) (unknown) Chief Complaint: (units (unknown) date) Elevated PSA unknown) (unknown) (no (unknown) (unknown) Colon polyps (units (u nknown) date) (Unknown) unknown) (unknown) (no (unknown) (unknown) Confirmed (units (unkn own) date) 10/22/22] unknown) (unknown) (no (unknown) (unknown) : 1945 (units (unknown) date) Acct:[id number] unknown) (unknown) (no (unknown) (unknown) DOG DANDER Allergy (units (unknown) date) (Mild, Uncoded unknown) 10/22/22 13:07) (unknown) (no (unknown) (unknown) Dept at (units (unkno wn) date) . unknown) (unknown) (no (unknown) (unknown) Diabetes (Unknown) (units (unknown) date) unknown) (unknown) (no (unknown) (unknown) Diabetic Shoes + (units (unknown) date) Insoles #4 ea unknown) 08/28/22 [Rx Confirmed 10/22/22] (unknown) (no (unknown) (unknown) Documented By: (units (unknown) date) Maxx Roberson MD unknown) 10/22/22 1307 (unknown) (no (unknown) (unknown) Draft (units (unkno wn) date) unknown) (unknown) (no (unknown) (unknown) Elevated PSA (units (u nknown) date) unknown) (unknown) (no (unknown) (unknown) Family History (units (unknown) date) (Reviewed 08/21/18 unknown) @ 15:25 by Greer Flores MD) (unknown) (no (unknown) (unknown) Father (units (unknown) date) Cancer unknown) (unknown) (no (unknown) (unknown) GERD (units (unkno wn) date) (gastroesophageal unknown) reflux disease) (Unknown) (unknown) (no (unknown) (unknown) Glucose: Test (units ( unknown) date) Strips #250 ea unknown) 11/18/20 [Rx Confirmed 10/22/22] (unknown) (no (unknown) (unknown) HPI (units (unkno wn) date) unknown) (unknown) (no (unknown) (unknown) Health Management (units (unknown) date) reviewed with unknown) patient: No (unknown) (no (unknown) (unknown) Health Management (units (unknown) date) unknown) (unknown) (no (unknown) (unknown) Hearing loss (units (u nknown) date) () unknown) (unknown) (no (unknown) (unknown) Height 5 ft 7 in (units (unknown) date) unknown) (unknown) (no (unknown) (unknown) History of kidney (units (unknown) date) stones unknown) (unknown) (no (unknown) (unknown) History of (units (unk nown) date) tonsillectomy unknown) (unknown) (no (unknown) (unknown) Hypertension (units (u nknown) date) (Unknown) unknown) (unknown) (no (unknown) (unknown) Hypothyroidism (units (unknown) date) (Unknown) unknown) (unknown) (no (unknown) (unknown) Insulin Aspart (units (unknown) date) sliding scale unknown) SUBCUT 10/27/19 [History Confirmed 10/22/22] (unknown) (no (unknown) (unknown) Intake Note: (units (u nknown) date) unknown) (unknown) (no (unknown) (unknown) Intake performed (units (unknown) date) by: Valentina Lopez unknown) (unknown) (no (unknown) (unknown) Intake (units (unkno wn) date) unknown) (unknown) (no (unknown) (unknown) Intake- [facility] (units (unknown) date) Staff unknown) (unknown) (no (unknown) (unknown) [facility] (units (unknown) date) unknown) (unknown) (no (unknown) (unknown) Kidney stone (units (u nknown) date) unknown) (unknown) (no (unknown) (unknown) Left renal stone (units (unknown) date) unknown) (unknown) (no (unknown) (unknown) Loc: [facility] (units (unkno wn) date) unknown) (unknown) (no (unknown) (unknown) Medical History (units (unknown) date) (Updated 10/22/22 @ unknown) 13:43 by Maxx Roberson MD) (unknown) (no (unknown) (unknown) Medications (units (un known) date) unknown) (unknown) (no (unknown) (unknown) Mother (units (unknown) date) Cancer unknown) (unknown) (no (unknown) (unknown) Neuropathy (units (unk nown) date) (Unknown) unknown) (unknown) (no (unknown) (unknown) Orders (units (unkno wn) date) unknown) (unknown) (no (unknown) (unknown) Orders: (units (unkno wn) date) unknown) (unknown) (no (unknown) (unknown) Osteopenia (units (unk nown) date) (07/2016) unknown) (unknown) (no (unknown) (unknown) PFSH (units (unkno wn) date) unknown) (unknown) (no (unknown) (unknown) PSA Free and Total (units (unknown) date) 3 Months R97.20 - unknown) Elevated prostate specific antigen [PSA] (unknown) (no (unknown) (unknown) Patient: (units (unkno wn) date) Tyshawn Camara R unknown) MR#: [id number] (unknown) (no (unknown) (unknown) Penicillins (units (un known) date) Allergy (Unknown, unknown) Verified 10/22/22 13:07) (unknown) (no (unknown) (unknown) Position Sitting (units (unknown) date) Sitting unknown) (unknown) (no (unknown) (unknown) Previous (units (unkno wn) date) occupational unknown) history: retired (unknown) (no (unknown) (unknown) Pt present to (units ( unknown) date) follow up with the unknown) provider regarding imaging results. Pt's BP (unknown) (no (unknown) (unknown) Pulse 61 61 (units (un known) date) unknown) (unknown) (no (unknown) (unknown) Pulse Source NIBP (units (unknown) date) NIBP unknown) (unknown) (no (unknown) (unknown) QAC #30 mL (units (unk nown) date) 11/02/20 [Rx unknown) Confirmed 10/22/22] (unknown) (no (unknown) (unknown) Reason For Visit (units (unknown) date) unknown) (unknown) (no (unknown) (unknown) Relief) 1 spray (units (unknown) date) intranasal QDAY ##3 unknown) 02/14/21 [Rx Confirmed 10/22/22] (unknown) (no (unknown) (unknown) Respiration 17 16 (units (unknown) date) unknown) (unknown) (no (unknown) (unknown) Secondhand smoke (units (unknown) date) exposure unknown) (unknown) (no (unknown) (unknown) Secondhand smoke (units (unknown) date) exposure, unknown) asymptomatic microscopic hematuria, history of kidney (unknown) (no (unknown) (unknown) Signed By: (units (unk nown) date) unknown) (unknown) (no (unknown) (unknown) Smoking Status: (units (unknown) date) Never smoker unknown) (unknown) (no (unknown) (unknown) Social History (units (unknown) date) (Updated 08/20/22 @ unknown) 12:32 by Valentina Lopez RN) (unknown) (no (unknown) (unknown) Stroke (Unknown) (units (unknown) date) unknown) (unknown) (no (unknown) (unknown) Surgical History (units (unknown) date) (Reviewed 03/16/19 unknown) @ 15:33 by Adri Amador DO) (unknown) (no (unknown) (unknown) This note may have (units (unknown) date) been all or unknown) partially generated using voice recognition (unknown) (no (unknown) (unknown) Tobacco Status (units (unknown) date) unknown) (unknown) (no (unknown) (unknown) Type(s) of (units (unk nown) date) exercise: none unknown) (unknown) (no (unknown) (unknown) Urology Office (units (unknown) date) Visit unknown) (unknown) (no (unknown) (unknown) Visit Reasons: (units (unknown) date) review CT + MRI unknown) (unknown) (no (unknown) (unknown) Vitals (units (unkno wn) date) unknown) (unknown) (no (unknown) (unknown) Weight 204 lb (units ( unknown) date) unknown) (unknown) (no (unknown) (unknown) XR KUB 10/22/22 (units (unknown) date) N20.0 - Calculus of unknown) kidney (unknown) (no (unknown) (unknown) [Rx Confirmed (units ( unknown) date) 10/22/22] unknown) (unknown) (no (unknown) (unknown) alcohol intake: (units (unknown) date) current unknown) (unknown) (no (unknown) (unknown) alendronate 35 mg (units (unknown) date) tablet 35 mg PO Q unknown) WEEK #12 tabs 11/18/20 [Rx Confirmed (unknown) (no (unknown) (unknown) alfuzosin 10 mg (units (unknown) date) tablet,extended unknown) release 24 hr 10 mg PO QDAY #90 tabs 08/19/20 (unknown) (no (unknown) (unknown) amlodipine 10 mg (units (unknown) date) tablet 10 mg PO Q unknown) DAY #90 tabs 08/19/20 [Rx Confirmed 10/22/22] (unknown) (no (unknown) (unknown) atenolol 100 mg (units (unknown) date) tablet 100 mg PO Q unknown) DAY #90 tabs 08/19/20 [Rx Confirmed 10/22/22] (unknown) (no (unknown) (unknown) atorvastatin 20 mg (units (unknown) date) tablet (Lipitor) 20 unknown) mg PO HS #90 tabs 08/19/20 [Rx Confirmed (unknown) (no (unknown) (unknown) caffeine: Yes (units ( unknown) date) unknown) (unknown) (no (unknown) (unknown) chronic kidney (units (unknown) date) disease unknown) (unknown) (no (unknown) (unknown) ciprofloxacin (units ( unknown) date) Allergy (Unknown, unknown) Verified 10/22/22 13:07) (unknown) (no (unknown) (unknown) elevated and pt (units (unknown) date) states his BP is unknown) usually lower at home when he does his (unknown) (no (unknown) (unknown) elevated with (units ( unknown) date) readings at home. unknown) (unknown) (no (unknown) (unknown) epinephrine 0.3 (units (unknown) date) mg/0.3 mL unknown) injection, auto-injector (EpiPen 2-Donte) 0.3 mg (0.3 (unknown) (no (unknown) (unknown) fluticasone (units (un known) date) propionate 50 unknown) mcg/actuation nasal spray,suspension (Flonase Allergy (unknown) (no (unknown) (unknown) have occurred. If (units (unknown) date) there are any unknown) questions, please contact the Medical Records (unknown) (no (unknown) (unknown) household members: (units (unknown) date) spouse unknown) (unknown) (no (unknown) (unknown) insulin aspart (units (unknown) date) U-100 100 unit/mL unknown) subcutaneous solution 25 unit (0.25 mL) SUBCUT (unknown) (no (unknown) (unknown) insulin glargine (units (unknown) date) 100 unit/mL unknown) subcutaneous solution (Lantus U-100 Insulin) 20 (unknown) (no (unknown) (unknown) insulin (units (unkno wn) date) syringe-needle unknown) U-100 1 mL 29 gauge x 1/2' (Advocate Syringes) #100 ea (unknown) (no (unknown) (unknown) isosorbide (units (unk nown) date) mononitrate 30 mg unknown) tablet,extended release 24 hr 60 mg PO DAILY #90 (unknown) (no (unknown) (unknown) levothyroxine 112 (units (unknown) date) mcg tablet 112 mcg unknown) PO QAM #90 tabs 02/04/20 [Rx Confirmed (unknown) (no (unknown) (unknown) loratadine 10 mg (units (unknown) date) tablet 10 mg PO unknown) DAILY 07/10/22 [History Confirmed 10/22/22] (unknown) (no (unknown) (unknown) mL) IM ONCE #2 ea (units (unknown) date) 06/19/19 [Rx unknown) Confirmed 10/22/22] (unknown) (no (unknown) (unknown) marital status: (units (unknown) date) unknown) (unknown) (no (unknown) (unknown) may occur. (units (unk nown) date) Occasional unknown) wrong-word or 'sound-alike' substitutions may have (unknown) (no (unknown) (unknown) number of (units (unkn own) date) children: 3 unknown) (unknown) (no (unknown) (unknown) occupational (units (u nknown) date) status: other unknown) (unknown) (no (unknown) (unknown) occurred due to (units (unknown) date) the inherent unknown) limitations of voice recognition software. Please (unknown) (no (unknown) (unknown) omeprazole 20 mg (units (unknown) date) capsule,delayed unknown) release 40 mg PO DAILY #90 caps 07/10/22 [Rx (unknown) (no (unknown) (unknown) read the note (units ( unknown) date) carefully and unknown) recognize, using context, where these substitutions (unknown) (no (unknown) (unknown) second hand (units (un known) date) exposure: No unknown) (unknown) (no (unknown) (unknown) software. Although (units (unknown) date) every effort is unknown) made to edit content, business management consultant errors (unknown) (no (unknown) (unknown) stone, benign (units ( unknown) date) prostatic unknown) hyperplasia, lower urinary tract symptoms, history of (unknown) (no (unknown) (unknown) substance use (units ( unknown) date) type: does not use unknown) (unknown) (no (unknown) (unknown) sulfamethoxazole (units (unknown) date) [From Bactrim] unknown) Allergy (Unknown, Verified 10/22/22 13:07) (unknown) (no (unknown) (unknown) tabs 07/10/22 [Rx (units (unknown) date) Confirmed 10/22/22] unknown) (unknown) (no (unknown) (unknown) trimethoprim [From (units (unknown) date) Bactrim] Allergy unknown) (Unknown, Verified 10/22/22 13:07) (unknown) (no (unknown) (unknown) unit (0.2 mL) (units ( unknown) date) SUBCUT HS #3 vials unknown) 02/10/20 [Rx Confirmed 10/22/22] Result panel 12 (unknown) (no (unknown) (unknown) (no value) (units (unk nown) date) unknown) (unknown) (no (unknown) (unknown) 'breathing (units (unk nown) date) exercises to unknown) relax.' Pt urged to follow up with PCP if BP remains (unknown) (no (unknown) (unknown) (1) Elevated PSA: (units (unknown) date) unknown) (unknown) (no (unknown) (unknown) (2) Left renal (units (unknown) date) stone: unknown) (unknown) (no (unknown) (unknown) (3) Secondhand (units (unknown) date) smoke exposure: unknown) (unknown) (no (unknown) (unknown) (4) Abnormal (units (u nknown) date) ultrasound of unknown) prostate: (unknown) (no (unknown) (unknown) (5) Urge (units (unkno wn) date) incontinence: unknown) (unknown) (no (unknown) (unknown) (6) BPH (benign (units (unknown) date) prostatic unknown) hyperplasia): (unknown) (no (unknown) (unknown) (acute) (chronic) (units (unknown) date) unknown) (unknown) (no (unknown) (unknown) [id number] (units (unkno wn) date) unknown) (unknown) (no (unknown) (unknown) 10/22/22 (units (unkno wn) date) unknown) (unknown) (no (unknown) (unknown) 10/22/22] (units (unkn own) date) unknown) (unknown) (no (unknown) (unknown) 10/24/22 1339 (units ( unknown) date) unknown) (unknown) (no (unknown) (unknown) 01/31/21 [Rx (units (u nknown) date) Confirmed 10/22/22] unknown) (unknown) (no (unknown) (unknown) 13:13 10/22/22 (units (unknown) date) unknown) (unknown) (no (unknown) (unknown) 13:14 (units (unkno wn) date) unknown) (unknown) (no (unknown) (unknown) 2. Left kidney (units (unknown) date) stone plan would be unknown) for KUB and then possible ureteroscopy or (unknown) (no (unknown) (unknown) 3. Exposure to (units (unknown) date) secondhand smoke unknown) will evaluate his bladder at the time of either (unknown) (no (unknown) (unknown) Abnormal (units (unkno wn) date) ultrasound of unknown) prostate (unknown) (no (unknown) (unknown) Accuchelis [place] (units (unknown) date) lancets - Softclix unknown) #250 ea 11/18/20 [Rx Confirmed 10/22/22] (unknown) (no (unknown) (unknown) Add'l Complaint: (units (unknown) date) unknown) (unknown) (no (unknown) (unknown) Age/Sex: 77 / M (units (unknown) date) Date of Service: unknown) (unknown) (no (unknown) (unknown) Alcohol Prep Pads (units (unknown) date) #250 ea 11/18/20 unknown) [Rx Confirmed 10/22/22] (unknown) (no (unknown) (unknown) Allergies (units (unkn own) date) unknown) (unknown) (no (unknown) (unknown) [place], [place] (units ( unknown) date) [id number] unknown) (unknown) (no (unknown) (unknown) Assessment + Plan (units (unknown) date) unknown) (unknown) (no (unknown) (unknown) Assessment and (units (unknown) date) plan 1. Elevated unknown) PSA plan would be to return to clinic in 3 (unknown) (no (unknown) (unknown) Asymptomatic (units (u nknown) date) microscopic unknown) hematuria (unknown) (no (unknown) (unknown) Attending Dr: (units ( unknown) date) Maxx Roberson MD unknown) (unknown) (no (unknown) (unknown) BMI 31.9 (units (unkno wn) date) unknown) (unknown) (no (unknown) (unknown) BP 163/70 H 151/77 (units (unknown) date) H unknown) (unknown) (no (unknown) (unknown) BPH (benign (units (un known) date) prostatic unknown) hyperplasia) (Unknown) (unknown) (no (unknown) (unknown) Blood Pressure (units (unknown) date) Location Lt unknown) brachial Lt brachial (unknown) (no (unknown) (unknown) CKD (chronic (units (u nknown) date) kidney disease) unknown) (Unknown) (unknown) (no (unknown) (unknown) CT scan was (units (un known) date) reviewed and unknown) reviewed with the patient patient does have (unknown) (no (unknown) (unknown) Chief Complaint (units (unknown) date) unknown) (unknown) (no (unknown) (unknown) Chief Complaint: (units (unknown) date) Elevated PSA unknown) (unknown) (no (unknown) (unknown) Code(s): N40.0 - (units (unknown) date) Benign prostatic unknown) hyperplasia without lower urinary tract (unknown) (no (unknown) (unknown) Code(s): (units (unkno wn) date) unknown) (unknown) (no (unknown) (unknown) Colon polyps (units (u nknown) date) (Unknown) unknown) (unknown) (no (unknown) (unknown) Confirmed (units (unkn own) date) 10/22/22] unknown) (unknown) (no (unknown) (unknown) : 1945 (units (unknown) date) Acct:[id number] unknown) (unknown) (no (unknown) (unknown) DOG DANDER Allergy (units (unknown) date) (Mild, Uncoded unknown) 10/22/22 13:07) (unknown) (no (unknown) (unknown) Dept at (units (unkno wn) date) . unknown) (unknown) (no (unknown) (unknown) Details: (units (unkno wn) date) unknown) (unknown) (no (unknown) (unknown) Diabetes (Unknown) (units (unknown) date) unknown) (unknown) (no (unknown) (unknown) Diabetic Shoes + (units (unknown) date) Insoles #4 ea unknown) 08/28/22 [Rx Confirmed 10/22/22] (unknown) (no (unknown) (unknown) Documented By: (units (unknown) date) Maxx Roberson MD unknown) 10/22/22 1307 (unknown) (no (unknown) (unknown) Elevated PSA (units (u nknown) date) unknown) (unknown) (no (unknown) (unknown) Family History (units (unknown) date) (Reviewed 08/21/18 unknown) @ 15:25 by Greer Flores MD) (unknown) (no (unknown) (unknown) Father (units (unknown) date) Cancer unknown) (unknown) (no (unknown) (unknown) GERD (units (unkno wn) date) (gastroesophageal unknown) reflux disease) (Unknown) (unknown) (no (unknown) (unknown) Glucose: Test (units ( unknown) date) Strips #250 ea unknown) 11/18/20 [Rx Confirmed 10/22/22] (unknown) (no (unknown) (unknown) HPI (units (unkno wn) date) unknown) (unknown) (no (unknown) (unknown) Health Management (units (unknown) date) reviewed with unknown) patient: No (unknown) (no (unknown) (unknown) Health Management (units (unknown) date) unknown) (unknown) (no (unknown) (unknown) Hearing loss (units (u nknown) date) () unknown) (unknown) (no (unknown) (unknown) Height 5 ft 7 in (units (unknown) date) unknown) (unknown) (no (unknown) (unknown) History of kidney (units (unknown) date) stones unknown) (unknown) (no (unknown) (unknown) History of (units (unk nown) date) tonsillectomy unknown) (unknown) (no (unknown) (unknown) Hypertension (units (u nknown) date) (Unknown) unknown) (unknown) (no (unknown) (unknown) Hypothyroidism (units (unknown) date) (Unknown) unknown) (unknown) (no (unknown) (unknown) Insulin Aspart (units (unknown) date) sliding scale unknown) SUBCUT 10/27/19 [History Confirmed 10/22/22] (unknown) (no (unknown) (unknown) Intake Note: (units (u nknown) date) unknown) (unknown) (no (unknown) (unknown) Intake performed (units (unknown) date) by: Valentina Lopez unknown) (unknown) (no (unknown) (unknown) Intake (units (unkno wn) date) unknown) (unknown) (no (unknown) (unknown) Intake- [facility] (units (unknown) date) Staff unknown) (unknown) (no (unknown) (unknown) [facility] (units (unknown) date) unknown) (unknown) (no (unknown) (unknown) Kidney stone (units (u nknown) date) unknown) (unknown) (no (unknown) (unknown) Left renal stone (units (unknown) date) unknown) (unknown) (no (unknown) (unknown) Loc: [facility] (units (unkno wn) date) unknown) (unknown) (no (unknown) (unknown) Lower urinary (units ( unknown) date) tract symptom unknown) presence: symptoms absent Qualified (unknown) (no (unknown) (unknown) Medical History (units (unknown) date) (Updated 10/22/22 @ unknown) 13:43 by Maxx Roberson MD) (unknown) (no (unknown) (unknown) Medications (units (un known) date) unknown) (unknown) (no (unknown) (unknown) Mother (units (unknown) date) Cancer unknown) (unknown) (no (unknown) (unknown) N20.0 - Calculus (units (unknown) date) of kidney unknown) (unknown) (no (unknown) (unknown) N39.41 - Urge (units ( unknown) date) incontinence unknown) (unknown) (no (unknown) (unknown) N40.0 - Benign (units (unknown) date) prostatic unknown) hyperplasia without lower urinary tract symptoms (unknown) (no (unknown) (unknown) Neuropathy (units (unk nown) date) (Unknown) unknown) (unknown) (no (unknown) (unknown) Orders (units (unkno wn) date) unknown) (unknown) (no (unknown) (unknown) Orders: (units (unkno wn) date) unknown) (unknown) (no (unknown) (unknown) Osteopenia (units (unk nown) date) (07/2016) unknown) (unknown) (no (unknown) (unknown) PFSH (units (unkno wn) date) unknown) (unknown) (no (unknown) (unknown) PSA Free and Total (units (unknown) date) 3 Months R97.20 - unknown) Elevated prostate specific antigen [PSA] (unknown) (no (unknown) (unknown) Patient: (units (unkno wn) date) Tyshawn Camara R unknown) MR#: [id number] (unknown) (no (unknown) (unknown) Penicillins (units (un known) date) Allergy (Unknown, unknown) Verified 10/22/22 13:07) (unknown) (no (unknown) (unknown) Plan (units (unkno wn) date) unknown) (unknown) (no (unknown) (unknown) Position Sitting (units (unknown) date) Sitting unknown) (unknown) (no (unknown) (unknown) Previous (units (unkno wn) date) occupational unknown) history: retired (unknown) (no (unknown) (unknown) Pt present to (units ( unknown) date) follow up with the unknown) provider regarding imaging results. Pt's BP (unknown) (no (unknown) (unknown) Pulse 61 61 (units (un known) date) unknown) (unknown) (no (unknown) (unknown) Pulse Source NIBP (units (unknown) date) NIBP unknown) (unknown) (no (unknown) (unknown) QAC #30 mL (units (unk nown) date) 11/02/20 [Rx unknown) Confirmed 10/22/22] (unknown) (no (unknown) (unknown) Qualifiers: (units (un known) date) unknown) (unknown) (no (unknown) (unknown) R93.89 - Abnormal (units (unknown) date) findings on unknown) diagnostic imaging of other specified body (unknown) (no (unknown) (unknown) R97.20 - Elevated (units (unknown) date) prostate specific unknown) antigen [PSA] (unknown) (no (unknown) (unknown) Reason For Visit (units (unknown) date) unknown) (unknown) (no (unknown) (unknown) Relief) 1 spray (units (unknown) date) intranasal QDAY ##3 unknown) 02/14/21 [Rx Confirmed 10/22/22] (unknown) (no (unknown) (unknown) Respiration 17 16 (units (unknown) date) unknown) (unknown) (no (unknown) (unknown) Secondhand smoke (units (unknown) date) exposure unknown) (unknown) (no (unknown) (unknown) Secondhand smoke (units (unknown) date) exposure, unknown) asymptomatic microscopic hematuria, history of kidney (unknown) (no (unknown) (unknown) Signed By: (units (unk nown) date) <Electronically unknown) signed by Maxx Roberson MD> (unknown) (no (unknown) (unknown) Signed (units (unkno wn) date) unknown) (unknown) (no (unknown) (unknown) Smoking Status: (units (unknown) date) Never smoker unknown) (unknown) (no (unknown) (unknown) Social History (units (unknown) date) (Updated 08/20/22 @ unknown) 12:32 by Valentina Lopez RN) (unknown) (no (unknown) (unknown) Status: Acute (units ( unknown) date) unknown) (unknown) (no (unknown) (unknown) Status: Chronic (units (unknown) date) unknown) (unknown) (no (unknown) (unknown) Stroke (Unknown) (units (unknown) date) unknown) (unknown) (no (unknown) (unknown) Surgical History (units (unknown) date) (Reviewed 03/16/19 unknown) @ 15:33 by Adri Amador DO) (unknown) (no (unknown) (unknown) The MRI shows a (units (unknown) date) PI-RADS 3 lesion in unknown) the left mid gland transition zone. This is (unknown) (no (unknown) (unknown) This 77-year-old (units (unknown) date) male returns to unknown) urology clinic in follow-up of his several (unknown) (no (unknown) (unknown) This note may have (units (unknown) date) been all or unknown) partially generated using voice recognition (unknown) (no (unknown) (unknown) Tobacco Status (units (unknown) date) unknown) (unknown) (no (unknown) (unknown) Type(s) of (units (unk nown) date) exercise: none unknown) (unknown) (no (unknown) (unknown) Urology Office (units (unknown) date) Visit unknown) (unknown) (no (unknown) (unknown) Visit Reasons: (units (unknown) date) review CT + MRI unknown) (unknown) (no (unknown) (unknown) Vitals (units (unkno wn) date) unknown) (unknown) (no (unknown) (unknown) Weight 204 lb (units ( unknown) date) unknown) (unknown) (no (unknown) (unknown) XR KUB 10/22/22 (units (unknown) date) N20.0 - Calculus of unknown) kidney (unknown) (no (unknown) (unknown) Z77.22 - Contact (units (unknown) date) with and unknown) (suspected) exposure to environmental tobacco smoke (unknown) (no (unknown) (unknown) [Rx Confirmed (units ( unknown) date) 10/22/22] unknown) (unknown) (no (unknown) (unknown) a 8-9 mm stone in (units (unknown) date) the mid left unknown) kidney. To determine what might be the best (unknown) (no (unknown) (unknown) alcohol intake: (units (unknown) date) current unknown) (unknown) (no (unknown) (unknown) alendronate 35 mg (units (unknown) date) tablet 35 mg PO Q unknown) WEEK #12 tabs 11/18/20 [Rx Confirmed (unknown) (no (unknown) (unknown) alfuzosin 10 mg (units (unknown) date) tablet,extended unknown) release 24 hr 10 mg PO QDAY #90 tabs 08/19/20 (unknown) (no (unknown) (unknown) amlodipine 10 mg (units (unknown) date) tablet 10 mg PO Q unknown) DAY #90 tabs 08/19/20 [Rx Confirmed 10/22/22] (unknown) (no (unknown) (unknown) asymptomatic (units (u nknown) date) microscopic unknown) hematuria history of kidney stones. The MRI and the CT (unknown) (no (unknown) (unknown) asymptomatic (units (u nknown) date) microscopic unknown) hematuria secondhand smoke exposure and the scan shows (unknown) (no (unknown) (unknown) atenolol 100 mg (units (unknown) date) tablet 100 mg PO Q unknown) DAY #90 tabs 08/19/20 [Rx Confirmed 10/22/22] (unknown) (no (unknown) (unknown) atorvastatin 20 mg (units (unknown) date) tablet (Lipitor) 20 unknown) mg PO HS #90 tabs 08/19/20 [Rx Confirmed (unknown) (no (unknown) (unknown) caffeine: Yes (units ( unknown) date) unknown) (unknown) (no (unknown) (unknown) chronic kidney (units (unknown) date) disease unknown) (unknown) (no (unknown) (unknown) ciprofloxacin (units ( unknown) date) Allergy (Unknown, unknown) Verified 10/22/22 13:07) (unknown) (no (unknown) (unknown) course of action (units (unknown) date) plan would be for a unknown) KUB today and if things look appropriate we (unknown) (no (unknown) (unknown) discussed. So will (units (unknown) date) await the KUB and unknown) then make future plans and arrangements. (unknown) (no (unknown) (unknown) elevated PSA. He (units (unknown) date) also comes with a unknown) CT scan abdomen pelvis related to his (unknown) (no (unknown) (unknown) elevated and pt (units (unknown) date) states his BP is unknown) usually lower at home when he does his (unknown) (no (unknown) (unknown) elevated with (units ( unknown) date) readings at home. unknown) (unknown) (no (unknown) (unknown) epinephrine 0.3 (units (unknown) date) mg/0.3 mL unknown) injection, auto-injector (EpiPen 2-Donte) 0.3 mg (0.3 (unknown) (no (unknown) (unknown) extracorporeal (units (unknown) date) shockwave unknown) lithotripsy. (unknown) (no (unknown) (unknown) findings or (units (un known) date) abnormalities noted unknown) the prostate is noted to be about 166 mL. And (unknown) (no (unknown) (unknown) fluticasone (units (un known) date) propionate 50 unknown) mcg/actuation nasal spray,suspension (Flonase Allergy (unknown) (no (unknown) (unknown) forward with left (units (unknown) date) ureteroscopy. Both unknown) of these procedures, risks, alternatives (unknown) (no (unknown) (unknown) have occurred. If (units (unknown) date) there are any unknown) questions, please contact the Medical Records (unknown) (no (unknown) (unknown) household members: (units (unknown) date) spouse unknown) (unknown) (no (unknown) (unknown) insulin aspart (units (unknown) date) U-100 100 unit/mL unknown) subcutaneous solution 25 unit (0.25 mL) SUBCUT (unknown) (no (unknown) (unknown) insulin glargine (units (unknown) date) 100 unit/mL unknown) subcutaneous solution (Lantus U-100 Insulin) 20 (unknown) (no (unknown) (unknown) insulin (units (unkno wn) date) syringe-needle unknown) U-100 1 mL 29 gauge x 1/2' (Advocate Syringes) #100 ea (unknown) (no (unknown) (unknown) isosorbide (units (unk nown) date) mononitrate 30 mg unknown) tablet,extended release 24 hr 60 mg PO DAILY #90 (unknown) (no (unknown) (unknown) levothyroxine 112 (units (unknown) date) mcg tablet 112 mcg unknown) PO QAM #90 tabs 02/04/20 [Rx Confirmed (unknown) (no (unknown) (unknown) loratadine 10 mg (units (unknown) date) tablet 10 mg PO unknown) DAILY 07/10/22 [History Confirmed 10/22/22] (unknown) (no (unknown) (unknown) mL) IM ONCE #2 ea (units (unknown) date) 06/19/19 [Rx unknown) Confirmed 10/22/22] (unknown) (no (unknown) (unknown) marital status: (units (unknown) date) unknown) (unknown) (no (unknown) (unknown) may occur. (units (unk nown) date) Occasional unknown) wrong-word or 'sound-alike' substitutions may have (unknown) (no (unknown) (unknown) months with a PSA (units (unknown) date) free and total for unknown) exam. (unknown) (no (unknown) (unknown) months with a PSA (units (unknown) date) free and total for unknown) repeat exam. (unknown) (no (unknown) (unknown) number of (units (unkn own) date) children: 3 unknown) (unknown) (no (unknown) (unknown) occupational (units (u nknown) date) status: other unknown) (unknown) (no (unknown) (unknown) occurred due to (units (unknown) date) the inherent unknown) limitations of voice recognition software. Please (unknown) (no (unknown) (unknown) omeprazole 20 mg (units (unknown) date) capsule,delayed unknown) release 40 mg PO DAILY #90 caps 07/10/22 [Rx (unknown) (no (unknown) (unknown) read the note (units ( unknown) date) carefully and unknown) recognize, using context, where these substitutions (unknown) (no (unknown) (unknown) scan reviewed in (units (unknown) date) the findings unknown) reviewed with the patient. (unknown) (no (unknown) (unknown) second hand (units (un known) date) exposure: No unknown) (unknown) (no (unknown) (unknown) shockwave (units (unkn own) date) lithotripsy if unknown) there is marginal visualization of the stone will move (unknown) (no (unknown) (unknown) software. Although (units (unknown) date) every effort is unknown) made to edit content, business management consultant errors (unknown) (no (unknown) (unknown) stone, benign (units ( unknown) date) prostatic unknown) hyperplasia, lower urinary tract symptoms, history of (unknown) (no (unknown) (unknown) structures (units (unk nown) date) unknown) (unknown) (no (unknown) (unknown) substance use (units ( unknown) date) type: does not use unknown) (unknown) (no (unknown) (unknown) sulfamethoxazole (units (unknown) date) [From Bactrim] unknown) Allergy (Unknown, Verified 10/22/22 13:07) (unknown) (no (unknown) (unknown) symptoms (units (unkno wn) date) unknown) (unknown) (no (unknown) (unknown) tabs 07/10/22 [Rx (units (unknown) date) Confirmed 10/22/22] unknown) (unknown) (no (unknown) (unknown) the ureteroscopy (units (unknown) date) or the unknown) extracorporeal shockwave lithotripsy. (unknown) (no (unknown) (unknown) thought to be a (units (unknown) date) benign prostatic unknown) hyperplasia nodule. There are no other (unknown) (no (unknown) (unknown) trimethoprim [From (units (unknown) date) Bactrim] Allergy unknown) (Unknown, Verified 10/22/22 13:07) (unknown) (no (unknown) (unknown) unit (0.2 mL) (units ( unknown) date) SUBCUT HS #3 vials unknown) 02/10/20 [Rx Confirmed 10/22/22] (unknown) (no (unknown) (unknown) urologic (units (unkno wn) date) complaints. He unknown) comes with an prostate MRI today related to his (unknown) (no (unknown) (unknown) were discussed (units (unknown) date) with the patient, unknown) hope for outcomes possible sequelae were also (unknown) (no (unknown) (unknown) will schedule the (units (unknown) date) patient for unknown) cystoscopy left stent placement and extracorporeal (unknown) (no (unknown) (unknown) with this regard (units (unknown) date) with his elevated unknown) PSA plan would be to return to clinic in 3 Result panel 13 (unknown) (no (unknown) (unknown) (no value) (units (unk nown) date) unknown) (unknown) (no (unknown) (unknown) 'breathing (units (unk nown) date) exercises to relax.' unknown) Pt urged to follow up with PCP if BP remains (unknown) (no (unknown) (unknown) (1) Elevated PSA: (units (unknown) date) unknown) (unknown) (no (unknown) (unknown) (2) Left renal (units (unknown) date) stone: unknown) (unknown) (no (unknown) (unknown) (3) Secondhand (units (unknown) date) smoke exposure: unknown) (unknown) (no (unknown) (unknown) (4) Abnormal (units (u nknown) date) ultrasound of unknown) prostate: (unknown) (no (unknown) (unknown) (5) Urge (units (unkno wn) date) incontinence: unknown) (unknown) (no (unknown) (unknown) (6) BPH (benign (units (unknown) date) prostatic unknown) hyperplasia): (unknown) (no (unknown) (unknown) (acute) (chronic) (units (unknown) date) unknown) (unknown) (no (unknown) (unknown) ADDENDUM (units (u nknown) date) unknown) (unknown) (no (unknown) (unknown) [id number] (units (unkno wn) date) unknown) (unknown) (no (unknown) (unknown) 10/22/22 (units (unkno wn) date) unknown) (unknown) (no (unknown) (unknown) 10/22/22] (units (unkn own) date) unknown) (unknown) (no (unknown) (unknown) 10/24/22 1339 (units ( unknown) date) unknown) (unknown) (no (unknown) (unknown) 11/12/22 1402 (units ( unknown) date) unknown) (unknown) (no (unknown) (unknown) 01/31/21 [Rx (units (u nknown) date) Confirmed 10/22/22] unknown) (unknown) (no (unknown) (unknown) 13:13 10/22/22 (units (unknown) date) unknown) (unknown) (no (unknown) (unknown) 13:14 (units (unkno wn) date) unknown) (unknown) (no (unknown) (unknown) 2. Left kidney (units (unknown) date) stone plan would be unknown) for KUB and then possible ureteroscopy or (unknown) (no (unknown) (unknown) 3. Exposure to (units (unknown) date) secondhand smoke unknown) will evaluate his bladder at the time of either (unknown) (no (unknown) (unknown) Abdominal exam: (units (unknown) date) Soft, nontender, unknown) without palpable mass or hepatosplenomegaly (unknown) (no (unknown) (unknown) Abnormal ultrasound (unit s (unknown) date) of prostate unknown) (unknown) (no (unknown) (unknown) Accuchek Marcella (units (unknown) date) lancets - Softclix unknown) #250 ea 11/18/20 [Rx Confirmed 10/22/22] (unknown) (no (unknown) (unknown) Add'l Complaint: (units (unknown) date) unknown) (unknown) (no (unknown) (unknown) Addendum Documented (unit s (unknown) date) By: Maxx Roberson MD unknown) (unknown) (no (unknown) (unknown) Addendum Signed By: (unit s (unknown) date) <Electronically unknown) signed by Maxx Roberson MD> (unknown) (no (unknown) (unknown) Age/Sex: 77 / M (units (unknown) date) Date of Service: unknown) (unknown) (no (unknown) (unknown) Alcohol Prep Pads (units (unknown) date) #250 ea 11/18/20 [Rx unknown) Confirmed 10/22/22] (unknown) (no (unknown) (unknown) Allergies (units (unkn own) date) unknown) (unknown) (no (unknown) (unknown) JERMAINE Edward [id number] (unit s (unknown) date) unknown) (unknown) (no (unknown) (unknown) Assessment + Plan (units (unknown) date) unknown) (unknown) (no (unknown) (unknown) Assessment and plan (unit s (unknown) date) 1. Elevated PSA plan unknown) would be to return to clinic in 3 (unknown) (no (unknown) (unknown) Assessment and (units (unknown) date) plan: Left renal unknown) calculus amenable to extracorporeal shockwave (unknown) (no (unknown) (unknown) Asymptomatic (units (u nknown) date) microscopic unknown) hematuria (unknown) (no (unknown) (unknown) Attending Dr: Maxx (unit s (unknown) date) Rylee Roberson MD unknown) (unknown) (no (unknown) (unknown) BMI 31.9 (units (unkno wn) date) unknown) (unknown) (no (unknown) (unknown) BP 163/70 H 151/77 (units (unknown) date) H unknown) (unknown) (no (unknown) (unknown) BPH (benign (units (un known) date) prostatic unknown) hyperplasia) (Unknown) (unknown) (no (unknown) (unknown) Blood Pressure (units (unknown) date) Location Lt brachial unknown) Lt brachial (unknown) (no (unknown) (unknown) CKD (chronic kidney (unit s (unknown) date) disease) (Unknown) unknown) (unknown) (no (unknown) (unknown) CT scan was (units (un known) date) reviewed and unknown) reviewed with the patient patient does have (unknown) (no (unknown) (unknown) Cardiovascular (units (unknown) date) exam: Regular rate unknown) and rhythm without murmur (unknown) (no (unknown) (unknown) Chief Complaint (units (unknown) date) unknown) (unknown) (no (unknown) (unknown) Chief Complaint: (units (unknown) date) Elevated PSA unknown) (unknown) (no (unknown) (unknown) Code(s): N40.0 - (units (unknown) date) Benign prostatic unknown) hyperplasia without lower urinary tract (unknown) (no (unknown) (unknown) Code(s): (units (unkno wn) date) unknown) (unknown) (no (unknown) (unknown) Colon polyps (units (u nknown) date) (Unknown) unknown) (unknown) (no (unknown) (unknown) Confirmed 10/22/22] (unit s (unknown) date) unknown) (unknown) (no (unknown) (unknown) : 1945 (units (unknown) date) Acct:[id number] unknown) (unknown) (no (unknown) (unknown) DOG DANDER Allergy (units (unknown) date) (Mild, Uncoded unknown) 10/22/22 13:07) (unknown) (no (unknown) (unknown) Dept at (units (unkno wn) date) . unknown) (unknown) (no (unknown) (unknown) Details: (units (unkno wn) date) unknown) (unknown) (no (unknown) (unknown) Diabetes (Unknown) (units (unknown) date) unknown) (unknown) (no (unknown) (unknown) Diabetic Shoes + (units (unknown) date) Insoles #4 ea unknown) 08/28/22 [Rx Confirmed 10/22/22] (unknown) (no (unknown) (unknown) Documented By: (units (unknown) date) Maxx Roberson MD unknown) 10/22/22 1307 (unknown) (no (unknown) (unknown) Elevated PSA (units (u nknown) date) unknown) (unknown) (no (unknown) (unknown) Exam: This is (units ( unknown) date) awake, alert, unknown) oriented male in no acute distress (unknown) (no (unknown) (unknown) Family History (units (unknown) date) (Reviewed 08/21/18 @ unknown) 15:25 by Greer Flores MD) (unknown) (no (unknown) (unknown) Father (units (unknown) date) Cancer unknown) (unknown) (no (unknown) (unknown) GERD (units (unkno wn) date) (gastroesophageal unknown) reflux disease) (Unknown) (unknown) (no (unknown) (unknown) Glucose: Test (units ( unknown) date) Strips #250 ea unknown) 11/18/20 [Rx Confirmed 10/22/22] (unknown) (no (unknown) (unknown) HPI (units (unkno wn) date) unknown) (unknown) (no (unknown) (unknown) Health Management (units (unknown) date) reviewed with unknown) patient: No (unknown) (no (unknown) (unknown) Health Management (units (unknown) date) unknown) (unknown) (no (unknown) (unknown) Hearing loss (units (u nknown) date) () unknown) (unknown) (no (unknown) (unknown) Height 5 ft 7 in (units (unknown) date) unknown) (unknown) (no (unknown) (unknown) History of kidney (units (unknown) date) stones unknown) (unknown) (no (unknown) (unknown) History of (units (unk nown) date) tonsillectomy unknown) (unknown) (no (unknown) (unknown) Hypertension (units (u nknown) date) (Unknown) unknown) (unknown) (no (unknown) (unknown) Hypothyroidism (units (unknown) date) (Unknown) unknown) (unknown) (no (unknown) (unknown) Insulin Aspart (units (unknown) date) sliding scale SUBCUT unknown) 10/27/19 [History Confirmed 10/22/22] (unknown) (no (unknown) (unknown) Intake Note: (units (u nknown) date) unknown) (unknown) (no (unknown) (unknown) Intake performed (units (unknown) date) by: Valentina Lopez unknown) (unknown) (no (unknown) (unknown) Intake (units (unkno wn) date) unknown) (unknown) (no (unknown) (unknown) Intake- Clincial (units (unknown) date) Staff unknown) (unknown) (no (unknown) (unknown) [facility] (units (unknown) date) unknown) (unknown) (no (unknown) (unknown) KUB is returned and (unit s (unknown) date) shows the stone to unknown) be in a position that would be amenable (unknown) (no (unknown) (unknown) Kidney stone (units (u nknown) date) unknown) (unknown) (no (unknown) (unknown) Left renal stone (units (unknown) date) unknown) (unknown) (no (unknown) (unknown) Loc: [facility] (units (unkno wn) date) unknown) (unknown) (no (unknown) (unknown) Lower urinary tract (unit s (unknown) date) symptom presence: unknown) symptoms absent Qualified (unknown) (no (unknown) (unknown) Lungs: Clear full (units (unknown) date) equal unknown) (unknown) (no (unknown) (unknown) Medical History (units (unknown) date) (Updated 10/22/22 @ unknown) 13:43 by Maxx Roberson MD) (unknown) (no (unknown) (unknown) Medications (units (un known) date) unknown) (unknown) (no (unknown) (unknown) Mother (units (unknown) date) Cancer unknown) (unknown) (no (unknown) (unknown) N20.0 - Calculus of (unit s (unknown) date) kidney unknown) (unknown) (no (unknown) (unknown) N39.41 - Urge (units ( unknown) date) incontinence unknown) (unknown) (no (unknown) (unknown) N40.0 - Benign (units (unknown) date) prostatic unknown) hyperplasia without lower urinary tract symptoms (unknown) (no (unknown) (unknown) Neuropathy (units (unk nown) date) (Unknown) unknown) (unknown) (no (unknown) (unknown) Orders (units (unkno wn) date) unknown) (unknown) (no (unknown) (unknown) Orders: (units (unkno wn) date) unknown) (unknown) (no (unknown) (unknown) Osteopenia (units (unk nown) date) (07/2016) unknown) (unknown) (no (unknown) (unknown) PFSH (units (unkno wn) date) unknown) (unknown) (no (unknown) (unknown) PSA Free and Total (units (unknown) date) 3 Months R97.20 - unknown) Elevated prostate specific antigen [PSA] (unknown) (no (unknown) (unknown) Patient: (units (unkno wn) date) Tyshawn Camara R unknown) MR#: [id number] (unknown) (no (unknown) (unknown) Penicillins Allergy (unit s (unknown) date) (Unknown, Verified unknown) 10/22/22 13:07) (unknown) (no (unknown) (unknown) Plan (units (unkno wn) date) unknown) (unknown) (no (unknown) (unknown) Position Sitting (units (unknown) date) Sitting unknown) (unknown) (no (unknown) (unknown) Previous (units (unkno wn) date) occupational unknown) history: retired (unknown) (no (unknown) (unknown) Pt present to (units ( unknown) date) follow up with the unknown) provider regarding imaging results. Pt's BP (unknown) (no (unknown) (unknown) Pulse 61 61 (units (un known) date) unknown) (unknown) (no (unknown) (unknown) Pulse Source NIBP (units (unknown) date) NIBP unknown) (unknown) (no (unknown) (unknown) QAC #30 mL 11/02/20 (unit s (unknown) date) [Rx Confirmed unknown) 10/22/22] (unknown) (no (unknown) (unknown) Qualifiers: (units (un known) date) unknown) (unknown) (no (unknown) (unknown) R93.89 - Abnormal (units (unknown) date) findings on unknown) diagnostic imaging of other specified body (unknown) (no (unknown) (unknown) R97.20 - Elevated (units (unknown) date) prostate specific unknown) antigen [PSA] (unknown) (no (unknown) (unknown) Reason For Visit (units (unknown) date) unknown) (unknown) (no (unknown) (unknown) Relief) 1 spray (units (unknown) date) intranasal QDAY ##3 unknown) 02/14/21 [Rx Confirmed 10/22/22] (unknown) (no (unknown) (unknown) Respiration 17 16 (units (unknown) date) unknown) (unknown) (no (unknown) (unknown) Secondhand smoke (units (unknown) date) exposure unknown) (unknown) (no (unknown) (unknown) Secondhand smoke (units (unknown) date) exposure, unknown) asymptomatic microscopic hematuria, history of kidney (unknown) (no (unknown) (unknown) Signed By: (units (unk nown) date) <Electronically unknown) signed by Maxx Roberson MD> (unknown) (no (unknown) (unknown) Signed with Addenda (unit s (unknown) date) unknown) (unknown) (no (unknown) (unknown) Smoking Status: (units (unknown) date) Never smoker unknown) (unknown) (no (unknown) (unknown) Social History (units (unknown) date) (Updated 08/20/22 @ unknown) 12:32 by Valentina Lopez RN) (unknown) (no (unknown) (unknown) Status: Acute (units ( unknown) date) unknown) (unknown) (no (unknown) (unknown) Status: Chronic (units (unknown) date) unknown) (unknown) (no (unknown) (unknown) Stroke (Unknown) (units (unknown) date) unknown) (unknown) (no (unknown) (unknown) Surgical History (units (unknown) date) (Reviewed 03/16/19 @ unknown) 15:33 by Adri Amador DO) (unknown) (no (unknown) (unknown) The MRI shows a (units (unknown) date) PI-RADS 3 lesion in unknown) the left mid gland transition zone. This is (unknown) (no (unknown) (unknown) This 77-year-old (units (unknown) date) male returns to unknown) urology clinic in follow-up of his several (unknown) (no (unknown) (unknown) This note may have (units (unknown) date) been all or unknown) partially generated using voice recognition (unknown) (no (unknown) (unknown) Tobacco Status (units (unknown) date) unknown) (unknown) (no (unknown) (unknown) Type(s) of (units (unk nown) date) exercise: none unknown) (unknown) (no (unknown) (unknown) Urology Office (units (unknown) date) Visit unknown) (unknown) (no (unknown) (unknown) Visit Reasons: (units (unknown) date) review CT + MRI unknown) (unknown) (no (unknown) (unknown) Vitals (units (unkno wn) date) unknown) (unknown) (no (unknown) (unknown) Weight 204 lb (units ( unknown) date) unknown) (unknown) (no (unknown) (unknown) XR KUB 10/22/22 (units (unknown) date) N20.0 - Calculus of unknown) kidney (unknown) (no (unknown) (unknown) Z77.22 - Contact (units (unknown) date) with and (suspected) unknown) exposure to environmental tobacco smoke (unknown) (no (unknown) (unknown) [Rx Confirmed (units ( unknown) date) 10/22/22] unknown) (unknown) (no (unknown) (unknown) a 8-9 mm stone in (units (unknown) date) the mid left kidney. unknown) To determine what might be the best (unknown) (no (unknown) (unknown) alcohol intake: (units (unknown) date) current unknown) (unknown) (no (unknown) (unknown) alendronate 35 mg (units (unknown) date) tablet 35 mg PO Q unknown) WEEK #12 tabs 11/18/20 [Rx Confirmed (unknown) (no (unknown) (unknown) alfuzosin 10 mg (units (unknown) date) tablet,extended unknown) release 24 hr 10 mg PO QDAY #90 tabs 08/19/20 (unknown) (no (unknown) (unknown) amlodipine 10 mg (units (unknown) date) tablet 10 mg PO Q unknown) DAY #90 tabs 08/19/20 [Rx Confirmed 10/22/22] (unknown) (no (unknown) (unknown) and wishes to (units ( unknown) date) proceed. unknown) (unknown) (no (unknown) (unknown) asymptomatic (units (u nknown) date) microscopic unknown) hematuria history of kidney stones. The MRI and the CT (unknown) (no (unknown) (unknown) asymptomatic (units (u nknown) date) microscopic unknown) hematuria secondhand smoke exposure and the scan shows (unknown) (no (unknown) (unknown) atenolol 100 mg (units (unknown) date) tablet 100 mg PO Q unknown) DAY #90 tabs 08/19/20 [Rx Confirmed 10/22/22] (unknown) (no (unknown) (unknown) atorvastatin 20 mg (units (unknown) date) tablet (Lipitor) 20 unknown) mg PO HS #90 tabs 08/19/20 [Rx Confirmed (unknown) (no (unknown) (unknown) bleeding, (units (unkn own) date) infection, injury to unknown) surrounding structures, failure to completely (unknown) (no (unknown) (unknown) caffeine: Yes (units ( unknown) date) unknown) (unknown) (no (unknown) (unknown) chronic kidney (units (unknown) date) disease unknown) (unknown) (no (unknown) (unknown) ciprofloxacin (units ( unknown) date) Allergy (Unknown, unknown) Verified 10/22/22 13:07) (unknown) (no (unknown) (unknown) complications and (units (unknown) date) sequelae patient unknown) voices understanding and acceptance of risks (unknown) (no (unknown) (unknown) course of action (units (unknown) date) plan would be for a unknown) KUB today and if things look appropriate we (unknown) (no (unknown) (unknown) direction so the (units (unknown) date) procedure, risks, unknown) alternatives discussed the patient questions (unknown) (no (unknown) (unknown) discussed. So will (units (unknown) date) await the KUB and unknown) then make future plans and arrangements. (unknown) (no (unknown) (unknown) elevated PSA. He (units (unknown) date) also comes with a CT unknown) scan abdomen pelvis related to his (unknown) (no (unknown) (unknown) elevated and pt (units (unknown) date) states his BP is unknown) usually lower at home when he does his (unknown) (no (unknown) (unknown) elevated with (units ( unknown) date) readings at home. unknown) (unknown) (no (unknown) (unknown) epinephrine 0.3 (units (unknown) date) mg/0.3 mL injection, unknown) auto-injector (EpiPen 2-Donte) 0.3 mg (0.3 (unknown) (no (unknown) (unknown) extracorporeal (units (unknown) date) shockwave unknown) lithotripsy. (unknown) (no (unknown) (unknown) findings or (units (un known) date) abnormalities noted unknown) the prostate is noted to be about 166 mL. And (unknown) (no (unknown) (unknown) fluticasone (units (un known) date) propionate 50 unknown) mcg/actuation nasal spray,suspension (Flonase Allergy (unknown) (no (unknown) (unknown) forward with left (units (unknown) date) ureteroscopy. Both unknown) of these procedures, risks, alternatives (unknown) (no (unknown) (unknown) have occurred. If (units (unknown) date) there are any unknown) questions, please contact the Medical Records (unknown) (no (unknown) (unknown) household members: (units (unknown) date) spouse unknown) (unknown) (no (unknown) (unknown) insulin aspart (units (unknown) date) U-100 100 unit/mL unknown) subcutaneous solution 25 unit (0.25 mL) SUBCUT (unknown) (no (unknown) (unknown) insulin glargine (units (unknown) date) 100 unit/mL unknown) subcutaneous solution (Lantus U-100 Insulin) 20 (unknown) (no (unknown) (unknown) insulin (units (unkno wn) date) syringe-needle U-100 unknown) 1 mL 29 gauge x 1/2' (Advocate Syringes) #100 ea (unknown) (no (unknown) (unknown) is placed, possible (unit s (unknown) date) need for future unknown) procedures, unforeseen and unpredictable (unknown) (no (unknown) (unknown) isosorbide (units (unk nown) date) mononitrate 30 mg unknown) tablet,extended release 24 hr 60 mg PO DAILY #90 (unknown) (no (unknown) (unknown) levothyroxine 112 (units (unknown) date) mcg tablet 112 mcg unknown) PO QAM #90 tabs 02/04/20 [Rx Confirmed (unknown) (no (unknown) (unknown) lithotripsy plan (units (unknown) date) would be for unknown) extracorporeal shockwave lithotripsy. (unknown) (no (unknown) (unknown) loratadine 10 mg (units (unknown) date) tablet 10 mg PO unknown) DAILY 07/10/22 [History Confirmed 10/22/22] (unknown) (no (unknown) (unknown) mL) IM ONCE #2 ea (units (unknown) date) 06/19/19 [Rx unknown) Confirmed 10/22/22] (unknown) (no (unknown) (unknown) marital status: (units (unknown) date) unknown) (unknown) (no (unknown) (unknown) may occur. (units (unk nown) date) Occasional unknown) wrong-word or 'sound-alike' substitutions may have (unknown) (no (unknown) (unknown) months with a PSA (units (unknown) date) free and total for unknown) exam. (unknown) (no (unknown) (unknown) months with a PSA (units (unknown) date) free and total for unknown) repeat exam. (unknown) (no (unknown) (unknown) number of children: (unit s (unknown) date) 3 unknown) (unknown) (no (unknown) (unknown) occupational (units (u nknown) date) status: other unknown) (unknown) (no (unknown) (unknown) occurred due to the (unit s (unknown) date) inherent limitations unknown) of voice recognition software. Please (unknown) (no (unknown) (unknown) omeprazole 20 mg (units (unknown) date) capsule,delayed unknown) release 40 mg PO DAILY #90 caps 07/10/22 [Rx (unknown) (no (unknown) (unknown) read the note (units ( unknown) date) carefully and unknown) recognize, using context, where these substitutions (unknown) (no (unknown) (unknown) scan reviewed in (units (unknown) date) the findings unknown) reviewed with the patient. (unknown) (no (unknown) (unknown) second hand (units (un known) date) exposure: No unknown) (unknown) (no (unknown) (unknown) shockwave (units (unkn own) date) lithotripsy if there unknown) is marginal visualization of the stone will move (unknown) (no (unknown) (unknown) software. Although (units (unknown) date) every effort is made unknown) to edit content, business management consultant errors (unknown) (no (unknown) (unknown) stone, benign (units ( unknown) date) prostatic unknown) hyperplasia, lower urinary tract symptoms, history of (unknown) (no (unknown) (unknown) structures (units (unk nown) date) unknown) (unknown) (no (unknown) (unknown) substance use type: (unit s (unknown) date) does not use unknown) (unknown) (no (unknown) (unknown) sulfamethoxazole (units (unknown) date) [From Bactrim] unknown) Allergy (Unknown, Verified 10/22/22 13:07) (unknown) (no (unknown) (unknown) symptoms (units (unkno wn) date) unknown) (unknown) (no (unknown) (unknown) tabs 07/10/22 [Rx (units (unknown) date) Confirmed 10/22/22] unknown) (unknown) (no (unknown) (unknown) the ureteroscopy or (unit s (unknown) date) the extracorporeal unknown) shockwave lithotripsy. (unknown) (no (unknown) (unknown) thought to be a (units (unknown) date) benign prostatic unknown) hyperplasia nodule. There are no other (unknown) (no (unknown) (unknown) to extracorporeal (units (unknown) date) shockwave unknown) lithotripsy. The patient wishes to proceed in this (unknown) (no (unknown) (unknown) treat the stone, (units (unknown) date) need for stent, unknown) possible bladder irritability after the stent (unknown) (no (unknown) (unknown) trimethoprim [From (units (unknown) date) Bactrim] Allergy unknown) (Unknown, Verified 10/22/22 13:07) (unknown) (no (unknown) (unknown) unit (0.2 mL) (units ( unknown) date) SUBCUT HS #3 vials unknown) 02/10/20 [Rx Confirmed 10/22/22] (unknown) (no (unknown) (unknown) urologic (units (unkno wn) date) complaints. He comes unknown) with an prostate MRI today related to his (unknown) (no (unknown) (unknown) were answered many (units (unknown) date) wishes to proceed unknown) the risks to include but not limited to (unknown) (no (unknown) (unknown) were discussed with (unit s (unknown) date) the patient, hope unknown) for outcomes possible sequelae were also (unknown) (no (unknown) (unknown) will schedule the (units (unknown) date) patient for unknown) cystoscopy left stent placement and extracorporeal (unknown) (no (unknown) (unknown) with this regard (units (unknown) date) with his elevated unknown) PSA plan would be to return to clinic in 3 Result panel 14 (unknown) (no (unknown) (unknown) (no value) (units (unk nown) date) unknown) (unknown) (no (unknown) (unknown) [id number] (units (unkno wn) date) unknown) (unknown) (no (unknown) (unknown) 11/13/22 1204 (units ( unknown) date) unknown) (unknown) (no (unknown) (unknown) Age/Sex: 77 / M (units (unknown) date) unknown) (unknown) (no (unknown) (unknown) COVID-19 (units (unkno wn) date) status: Not unknown) tested (unknown) (no (unknown) (unknown) COVID-19 (units (unkno wn) date) unknown) (unknown) (no (unknown) (unknown) Changes to H+P: (units (unknown) date) No unknown) (unknown) (no (unknown) (unknown) Criteria for (units (u nknown) date) continued unknown) procedure: Delay expected to result in less-positive (unknown) (no (unknown) (unknown) : 1945 (units (unknown) date) Acct:[id number] unknown) (unknown) (no (unknown) (unknown) Date of (units (unkno wn) date) Service: unknown) 11/13/22 (unknown) (no (unknown) (unknown) History + (units (unkn own) date) Physical unknown) reviewed/Exam performed by Physician: Yes (unknown) (no (unknown) (unknown) Interval Note (units ( unknown) date) unknown) (unknown) (no (unknown) (unknown) Formerly [facility] (units (unknown) date) [address] [place] [address] Street unknown) [place] [address] (unknown) (no (unknown) (unknown) Patient: (units (unkno wn) date) Tyshawn Camara unknown) MR#: [id number] (unknown) (no (unknown) (unknown) Pre-operative (units ( unknown) date) Note unknown) (unknown) (no (unknown) (unknown) Provider: (units (unkn own) date) Maxx Roberson MD unknown) (unknown) (no (unknown) (unknown) Signed (units (unkno wn) date) By:<Electronical unknown) ly signed by Maxx Roberson MD> (unknown) (no (unknown) (unknown) appropriate per (units (unknown) date) current SOC unknown) (unknown) (no (unknown) (unknown) ultimate (units (unkno wn) date) med/surg outcome unknown) and Non-surgical alternatives not available or Result panel 15 (unknown) (no (unknown) (unknown) (no value) (units (unk nown) date) unknown) (unknown) (no (unknown) (unknown) [id number] (units (unkno wn) date) unknown) (unknown) (no (unknown) (unknown) 11/13/22 1340 (units ( unknown) date) unknown) (unknown) (no (unknown) (unknown) A 7 Azerbaijani (units (unk nown) date) multilink stent unknown) was left in good position in the left collecting (unknown) (no (unknown) (unknown) Age/Sex: 77 / M (units (unknown) date) unknown) (unknown) (no (unknown) (unknown) Anesthesia Type: (units (unknown) date) General unknown) (unknown) (no (unknown) (unknown) Blood products (units (unknown) date) transfused: none unknown) (unknown) (no (unknown) (unknown) Click Yes if (units (u nknown) date) Unassisted: Yes unknown) (unknown) (no (unknown) (unknown) Closure Type: (units ( unknown) date) not applicable unknown) (unknown) (no (unknown) (unknown) Complications: (units (unknown) date) none unknown) (unknown) (no (unknown) (unknown) Condition: (units (unk nown) date) stable unknown) (unknown) (no (unknown) (unknown) : 1945 (units (unknown) date) Acct:[id number] unknown) (unknown) (no (unknown) (unknown) Date of Service: (units (unknown) date) 11/13/22 unknown) (unknown) (no (unknown) (unknown) Disposition: (units (u nknown) date) PACU unknown) (unknown) (no (unknown) (unknown) Ensuring an (units (un known) date) adequate level of unknown) anesthesia patient was then transitioned to the (unknown) (no (unknown) (unknown) Findings: At (units (u nknown) date) cystoscopy unknown) urethral meatus was normal urethra was normal. The (unknown) (no (unknown) (unknown) Findings: (units (unkn own) date) unknown) (unknown) (no (unknown) (unknown) Indications: (units (u nknown) date) unknown) (unknown) (no (unknown) (unknown) Formerly [facility] (units (unknown) date) [address] unknown) [place] [address] (unknown) (no (unknown) (unknown) KUB and CT scan. (units (unknown) date) There were no unknown) filling defects or other abnormalities. The (unknown) (no (unknown) (unknown) Left (units (unkno wn) date) extracorporeal unknown) shockwave lithotripsy, cystoscopy and left stent placement, (unknown) (no (unknown) (unknown) Operative Note (units (unknown) date) unknown) (unknown) (no (unknown) (unknown) Operative Notes (units (unknown) date) unknown) (unknown) (no (unknown) (unknown) Patient is to be (units (unknown) date) discharged to unknown) home straining his urine saving any fragments he (unknown) (no (unknown) (unknown) Patient: (units (unkno wn) date) Tyshawn Camara R unknown) MR#: [id number] (unknown) (no (unknown) (unknown) Plan for (units (o wn) date) aftercare: unknown) (unknown) (no (unknown) (unknown) Post-operative (units (unknown) date) unknown) (unknown) (no (unknown) (unknown) Procedure + (units (un known) date) Clinicians unknown) (unknown) (no (unknown) (unknown) Procedure in (units (u nknown) date) detail: After unknown) informed consent was obtained, the patient was (unknown) (no (unknown) (unknown) Procedure in (units (u nknown) date) detail: unknown) (unknown) (no (unknown) (unknown) Procedure: (units (unk nown) date) unknown) (unknown) (no (unknown) (unknown) Prosthetic (units (unk nown) date) devices, grafts, unknown) tissues, transplants, or devices: (unknown) (no (unknown) (unknown) Provider: (units (unkn own) date) Maxx Roberson MD unknown) (unknown) (no (unknown) (unknown) Same procedure (units (unknown) date) as scheduled: Yes unknown) (unknown) (no (unknown) (unknown) Seven Azerbaijani by (units (unknown) date) multi length unknown) stent no string (unknown) (no (unknown) (unknown) Signed (units (unkno wn) date) By:<Electronicall unknown) y signed by Maxx Roberson MD> (unknown) (no (unknown) (unknown) Specimen(s): (units (u nknown) date) none sent unknown) (unknown) (no (unknown) (unknown) Surgeon: Maxx Mckee (units (unknown) date) Da unknown) (unknown) (no (unknown) (unknown) This 77-year-old (units (unknown) date) male who unknown) presented with complaint of hematuria was found to (unknown) (no (unknown) (unknown) and again (units (unkno wn) date) difficulty was unknown) met so the Jordan catheter was left in place with a wire (unknown) (no (unknown) (unknown) approximately 2 (units (unknown) date) weeks. He will unknown) strain his urine and save any fragments. (unknown) (no (unknown) (unknown) at placing the (units (unknown) date) stent on the left unknown) the patient was noted to have significant ?J (unknown) (no (unknown) (unknown) backed out and (units (unknown) date) contrast unknown) instilled and visualized via fluoroscopy. With the (unknown) (no (unknown) (unknown) catheter the (units (u nknown) date) Jordan catheter unknown) was basket out and the stent passed over the wire (unknown) (no (unknown) (unknown) complications (units ( unknown) date) patient will be unknown) transferred to home to follow up my office in (unknown) (no (unknown) (unknown) delivered the (units (u nknown) date) shockwave head unknown) was rotated out fluoroscopy performed revealing the (unknown) (no (unknown) (unknown) elevated bladder (units (unknown) date) neck and or unknown) median lobe. The right ureteral orifices in normal (unknown) (no (unknown) (unknown) ensuring an (units (unk nown) date) adequate level of unknown) anesthesia 22 Azerbaijani cystoscope was passed through (unknown) (no (unknown) (unknown) findings and had (units (unknown) date) glidewire was unknown) then employed passed up it into the collecting (unknown) (no (unknown) (unknown) for treatment of (units (unknown) date) this left unknown) ureteral calculus.. (unknown) (no (unknown) (unknown) grasped with a (units (unknown) date) nylon heart is unknown) removed. The bladder was drained scope was (unknown) (no (unknown) (unknown) have a left (units (un known) date) renal calculus unknown) during the workup for this. He presents this time (unknown) (no (unknown) (unknown) hooking? of the (units (unknown) date) distal ureter. unknown) This necessitated retrograde pyelogram which (unknown) (no (unknown) (unknown) hybrid wire met (units (unknown) date) with difficulty. unknown) This was then assisted by a [place] catheter (unknown) (no (unknown) (unknown) identified and (units (unknown) date) brought to the unknown) operating room where he was placed in supine (unknown) (no (unknown) (unknown) left retrograde (units (unknown) date) pyelogram unknown) (unknown) (no (unknown) (unknown) lithotomy (units (unkn own) date) position. Once unknown) the lithotomy position he was prepped, draped, (unknown) (no (unknown) (unknown) passed up into (units (unknown) date) the collecting unknown) system where the contrast was irrigated out with (unknown) (no (unknown) (unknown) performed. The (units (unknown) date) left ureteral unknown) orifice was identified and attempt to pass a (unknown) (no (unknown) (unknown) position on the (units (unknown) date) Lithotripter. He unknown) then had anesthesia induced to maintain. (unknown) (no (unknown) (unknown) position with (units ( unknown) date) clear efflux. The unknown) bladder is otherwise unremarkable. Add attempt (unknown) (no (unknown) (unknown) positioned in (units ( unknown) date) the renal pelvis unknown) under fluoroscopic visualization of the bladder (unknown) (no (unknown) (unknown) postanesthesia (units (unknown) date) care unit having unknown) tolerated the procedure well. There were no (unknown) (no (unknown) (unknown) prepared for (units (u nknown) date) Transurethral unknown) procedure. After prepping draping, time-out and (unknown) (no (unknown) (unknown) prostate (units (unkno wn) date) exhibits moderate unknown) approaching severe obstructive character with (unknown) (no (unknown) (unknown) re localization (units (unknown) date) to ensure maximal unknown) energy delivery to the stone with 2000 shocks (unknown) (no (unknown) (unknown) reaching level 7 (units (unknown) date) for a total of unknown) 2000 shocks. There was periodic reimaging and (unknown) (no (unknown) (unknown) removed and the (units (unknown) date) patient went on unknown) to extracorporeal shockwave lithotripsy. The (unknown) (no (unknown) (unknown) revealed the J (units (unknown) date) hooking. And unknown) facilitated passage of a wire and [place] catheter (unknown) (no (unknown) (unknown) saline and (units (unk nown) date) aspiration. The unknown) hybrid wire was then passed through the [place] (unknown) (no (unknown) (unknown) stone received a (units (unknown) date) total of 2000 unknown) shocks at level 7 and appeared to fragment well. (unknown) (no (unknown) (unknown) stone to be well (units (unknown) date) fragmented. At unknown) this point the patient was awakened having (unknown) (no (unknown) (unknown) stone was noted (units (unknown) date) to be in the left unknown) mid kidney consistent with the findings of his (unknown) (no (unknown) (unknown) stone was (units (unkn own) date) targeted via the unknown) imaging system and shockwave delivered vaginally (unknown) (no (unknown) (unknown) system the (units (unk nown) date) distal ureter unknown) appeared to ?straightened? and the Jordan catheter was (unknown) (no (unknown) (unknown) system with no (units (unknown) date) string. unknown) (unknown) (no (unknown) (unknown) the urethra (units (un known) date) prostate and into unknown) the bladder under direct vision cystoscopy was (unknown) (no (unknown) (unknown) tolerated the (units ( unknown) date) procedure well he unknown) was [facility] [place] [facility] and taken to the (unknown) (no (unknown) (unknown) under direct (units (u nknown) date) vision. The unknown) grasping forceps was then inserted and the stent (unknown) (no (unknown) (unknown) up it into the (units (unknown) date) collecting unknown) system. There were no other abnormalities noted. The (unknown) (no (unknown) (unknown) will return to (units (unknown) date) my office in unknown) approximately 2 weeks with a KUB for follow-up. Result panel 16 (unknown) (no date) (unknown) (unknown) (no value) (units (un known) unknown) (unknown) (no date) (unknown) (unknown) [id number] (units (unk nown) unknown) (unknown) (no date) (unknown) (unknown) 11/22/22 (units (unkn own) unknown) (unknown) (no date) (unknown) (unknown) 1. Multiple (units (u nknown) left renal unknown) calculi. The dominant stone in the inferior pole of the (unknown) (no date) (unknown) (unknown) [address] (units (unk nown) Street unknown) (unknown) (no date) (unknown) (unknown) Accession (units (unk nown) Number: unknown) [id number] (unknown) (no date) (unknown) (unknown) Age/Sex: 77 / (units (unknown) M Date of unknown) Service: (unknown) (no date) (unknown) (unknown) [place], [place] (units (unknown) [address] unknown) (unknown) (no date) (unknown) (unknown) Approved by: (units ( unknown) Susi Mathews M.D. unknown) on 11/22/2022 at 17:20 (unknown) (no date) (unknown) (unknown) Bones: No (units (unk nown) suspicious bony unknown) lesions. (unknown) (no date) (unknown) (unknown) Bowel: Bowel (units ( unknown) gas pattern is unknown) normal. (unknown) (no date) (unknown) (unknown) [facility], [facility], XR KUB, 10/22/2022, 13:57. (unknown) (no date) (unknown) (unknown) : (units (unkn own) 1945 unknown) Acct:[id number] (unknown) (no date) (unknown) (unknown) Dictated by: (units ( unknown) Susi Mathews M.D. unknown) on 11/22/2022 at 17:18 (unknown) (no date) (unknown) (unknown) FINDINGS: (units (unk nown) unknown) (unknown) (no date) (unknown) (unknown) IMPRESSION: (units (u nknown) unknown) (unknown) (no date) (unknown) (unknown) INDICATIONS: (units ( unknown) renal stones unknown) (unknown) (no date) (unknown) (unknown) [facility] (unknown) (no date) (unknown) (unknown) Loc: RAD (units (unkn own) unknown) (unknown) (no date) (unknown) (unknown) Multiple left (units (unknown) renal calculi unknown) are present. The dominant stone in the inferior (unknown) (no date) (unknown) (unknown) Ordering (units (unkn own) Provider: unknown) Maxx Roberson MD (unknown) (no date) (unknown) (unknown) PROCEDURE: XR (units (unknown) KUB unknown) (unknown) (no date) (unknown) (unknown) Patient: (units (unkn own) Tyshawn Camara unknown) R MR#: [id number] (unknown) (no date) (unknown) (unknown) Procedure: XR (units (unknown) KUB unknown) (unknown) (no date) (unknown) (unknown) Signed (units (unkn own) unknown) (unknown) (no date) (unknown) (unknown) Soft tissues: (units (unknown) No suspicious unknown) abdominal calcifications. Visualized solid organ (unknown) (no date) (unknown) (unknown) Surgical (units (unkn own) changes and unknown) devices: There is a left ureteral stent in expected (unknown) (no date) (unknown) (unknown) TECHNIQUE: One (units (unknown) view of the unknown) abdomen acquired. (unknown) (no date) (unknown) (unknown) XRay Report (units (u nknown) unknown) (unknown) (no date) (unknown) (unknown) appear normal (units (unknown) in size. unknown) (unknown) (no date) (unknown) (unknown) contours (units (unkn own) unknown) (unknown) (no date) (unknown) (unknown) kidney is no (units ( unknown) longer present. unknown) There is a left ureteral stent. (unknown) (no date) (unknown) (unknown) left (units (unkn own) unknown) (unknown) (no date) (unknown) (unknown) longer (units (unkn own) visualized. No unknown) definitive right renal stone. (unknown) (no date) (unknown) (unknown) pole is no (units (un known) unknown) (unknown) (no date) (unknown) (unknown) position. (units (unk nown) unknown) Result panel 17 (unknown) (no (unknown) (unknown) (no value) (units (unk nown) date) unknown) (unknown) (no (unknown) (unknown) [id number] (units (unkno wn) date) unknown) (unknown) (no (unknown) (unknown) 11/26/22 (units (unkno wn) date) unknown) (unknown) (no (unknown) (unknown) 77 y/o male presenting (u nits (unknown) date) today for a post op follow unk nown) up and review of KUB. (unknown) (no (unknown) (unknown) Abnormal ultrasound of (u nits (unknown) date) prostate unknown) (unknown) (no (unknown) (unknown) Age/Sex: 77 / M Date of ( units (unknown) date) Service: unknown) (unknown) (no (unknown) (unknown) Allergies (units (unkn own) date) unknown) (unknown) (no (unknown) (unknown) [place], [place] [address] (unit s (unknown) date) unknown) (unknown) (no (unknown) (unknown) Asymptomatic microscopic (units (unknown) date) hematuria unknown) (unknown) (no (unknown) (unknown) Attending Dr: Maxx Roberson (units (unknown) date) unknown) (unknown) (no (unknown) (unknown) BPH (benign prostatic (un its (unknown) date) hyperplasia) (Unknown) unknown ) (unknown) (no (unknown) (unknown) CKD (chronic kidney (unit s (unknown) date) disease) (Unknown) unknown) (unknown) (no (unknown) (unknown) Colon polyps (Unknown) (u nits (unknown) date) unknown) (unknown) (no (unknown) (unknown) : 1945 (units (unknown) date) Acct:[id number] unknown) (unknown) (no (unknown) (unknown) DOG DANDER Allergy (Mild, (units (unknown) date) Uncoded 10/22/22 13:07) unknow n) (unknown) (no (unknown) (unknown) Dept at . (u nits (unknown) date) unknown) (unknown) (no (unknown) (unknown) Diabetes (Unknown) (units (unknown) date) unknown) (unknown) (no (unknown) (unknown) Documented By: Maxx Roberson (units (unknown) date) Rylee BROTHERS 11/26/22 1341 unknown) (unknown) (no (unknown) (unknown) Draft (units (unkno wn) date) unknown) (unknown) (no (unknown) (unknown) Elevated PSA (units (u nknown) date) unknown) (unknown) (no (unknown) (unknown) Family History (Reviewed (units (unknown) date) 08/21/18 @ 15:25 by Greer unkno wn) Kimberley Flores MD) (unknown) (no (unknown) (unknown) Father Cancer (u nits (unknown) date) unknown) (unknown) (no (unknown) (unknown) GERD (gastroesophageal (u nits (unknown) date) reflux disease) (Unknown) unkn own) (unknown) (no (unknown) (unknown) Hearing loss () ( units (unknown) date) unknown) (unknown) (no (unknown) (unknown) History of (units (unk nown) date) esophagogastroduodenoscopy unk nown) (EGD) (08/2018) (unknown) (no (unknown) (unknown) History of kidney stones (units (unknown) date) unknown) (unknown) (no (unknown) (unknown) History of tonsillectomy (units (unknown) date) unknown) (unknown) (no (unknown) (unknown) Hypertension (Unknown) (u nits (unknown) date) unknown) (unknown) (no (unknown) (unknown) Hypothyroidism (Unknown) (units (unknown) date) unknown) (unknown) (no (unknown) (unknown) Intake Note: (units (u nknown) date) unknown) (unknown) (no (unknown) (unknown) Intake performed by: (uni ts (unknown) date) Tanya Gutiérrez unknown) (unknown) (no (unknown) (unknown) Intake (units (unkno wn) date) unknown) (unknown) (no (unknown) (unknown) Intake- Clincial Staff (u nits (unknown) date) unknown) (unknown) (no (unknown) (unknown) [facility] (units (unknown) date) unknown) (unknown) (no (unknown) (unknown) Kidney stone (units (u nknown) date) unknown) (unknown) (no (unknown) (unknown) Left renal stone (units (unknown) date) unknown) (unknown) (no (unknown) (unknown) Loc: URO (units (unkno wn) date) unknown) (unknown) (no (unknown) (unknown) Medical History (Updated (units (unknown) date) 10/22/22 @ 13:43 by Maxx Mckee un known) MD Da) (unknown) (no (unknown) (unknown) Mother Cancer (u nits (unknown) date) unknown) (unknown) (no (unknown) (unknown) Neuropathy (Unknown) (uni ts (unknown) date) unknown) (unknown) (no (unknown) (unknown) Osteopenia (07/2016) (uni ts (unknown) date) unknown) (unknown) (no (unknown) (unknown) PFSH (units (unkno wn) date) unknown) (unknown) (no (unknown) (unknown) Patient: Tyshawn Camara (units (unknown) date) MR#: [id number] unknown) (unknown) (no (unknown) (unknown) [place] Allergy (unit s (unknown) date) (Unknown, Verified 11/13/22 un known) 11:29) (unknown) (no (unknown) (unknown) Previous occupational (un its (unknown) date) history: retired unknown) (unknown) (no (unknown) (unknown) Reason For Visit (units (unknown) date) unknown) (unknown) (no (unknown) (unknown) Secondhand smoke exposure (units (unknown) date) unknown) (unknown) (no (unknown) (unknown) Signed By: (units (unk nown) date) unknown) (unknown) (no (unknown) (unknown) Smoking Status: Never (un its (unknown) date) smoker unknown) (unknown) (no (unknown) (unknown) Social History (Updated ( units (unknown) date) 08/20/22 @ 12:32 by Valentina jasminek nown) SHEA Lopez) (unknown) (no (unknown) (unknown) Stroke (Unknown) (units (unknown) date) unknown) (unknown) (no (unknown) (unknown) Surgical History (Updated (units (unknown) date) 11/09/22 @ 11:34 by Abril Robin un known) SHEA Churchill) (unknown) (no (unknown) (unknown) This note may have been ( units (unknown) date) all or partially generated unk nown) using voice recognition (unknown) (no (unknown) (unknown) Tobacco Status (units (unknown) date) unknown) (unknown) (no (unknown) (unknown) Type(s) of exercise: none (units (unknown) date) unknown) (unknown) (no (unknown) (unknown) Urology Office Visit (uni ts (unknown) date) unknown) (unknown) (no (unknown) (unknown) Visit Reasons: PO w/KUB ( units (unknown) date) unknown) (unknown) (no (unknown) (unknown) alcohol intake: current ( units (unknown) date) unknown) (unknown) (no (unknown) (unknown) caffeine: Yes (units ( unknown) date) unknown) (unknown) (no (unknown) (unknown) ciprofloxacin Allergy (un its (unknown) date) (Unknown, Verified 11/13/22 un known) 11:29) (unknown) (no (unknown) (unknown) have occurred. If there ( units (unknown) date) are any questions, please unkn own) contact the Medical Records (unknown) (no (unknown) (unknown) household members: spouse (units (unknown) date) unknown) (unknown) (no (unknown) (unknown) marital status: ( units (unknown) date) unknown) (unknown) (no (unknown) (unknown) may occur. Occasional (un its (unknown) date) wrong-word or 'sound-alike' un known) substitutions may have (unknown) (no (unknown) (unknown) number of children: 3 (un its (unknown) date) unknown) (unknown) (no (unknown) (unknown) occupational status: other (units (unknown) date) unknown) (unknown) (no (unknown) (unknown) occurred due to the (unit s (unknown) date) inherent limitations of unknow n) voice recognition software. Please (unknown) (no (unknown) (unknown) read the note carefully ( units (unknown) date) and recognize, using unknown) context, where these substitutions (unknown) (no (unknown) (unknown) second hand exposure: No (units (unknown) date) unknown) (unknown) (no (unknown) (unknown) software. Although every (units (unknown) date) effort is made to edit unknown ) content, business management consultant errors (unknown) (no (unknown) (unknown) substance use type: does (units (unknown) date) not use unknown) (unknown) (no (unknown) (unknown) sulfamethoxazole [From (u nits (unknown) date) Bactrim] Allergy (Unknown, unk nown) Verified 11/13/22 11:29) (unknown) (no (unknown) (unknown) trimethoprim [From (units (unknown) date) Bactrim] Allergy (Unknown, unk nown) Verified 11/13/22 11:29) Result panel 18 (unknown) (no (unknown) (unknown) (no value) (units (unk nown) date) unknown) (unknown) (no (unknown) (unknown) #30 tabs 11/13/22 [Rx (un its (unknown) date) Confirmed 11/26/22] unknown) (unknown) (no (unknown) (unknown) [id number] (units (unkno wn) date) unknown) (unknown) (no (unknown) (unknown) 11/26/22 (units (unkno wn) date) unknown) (unknown) (no (unknown) (unknown) 11/26/22] (units (unkn own) date) unknown) (unknown) (no (unknown) (unknown) 01/31/21 [Rx Confirmed (u nits (unknown) date) 11/26/22] unknown) (unknown) (no (unknown) (unknown) 13:47 (units (unkno wn) date) unknown) (unknown) (no (unknown) (unknown) 77 y/o male presenting (u nits (unknown) date) today for a post op follow kenroyk [facility]) up and review of KUB. Patient (unknown) (no (unknown) (unknown) Abnormal ultrasound of (u nits (unknown) date) prostate unknown) (unknown) (no (unknown) (unknown) Accuchek Marcella lancets - (units (unknown) date) Softclix #250 ea 11/18/20 unkn own) [Rx Confirmed 11/26/22] (unknown) (no (unknown) (unknown) Age/Sex: 77 / M Date of ( units (unknown) date) Service: unknown) (unknown) (no (unknown) (unknown) Alcohol Prep Pads #250 ea (units (unknown) date) 11/18/20 [Rx Confirmed unknown ) 11/26/22] (unknown) (no (unknown) (unknown) Allergies (units (unkn own) date) unknown) (unknown) (no (unknown) (unknown) [place] [address] (unit s (unknown) date) unknown) (unknown) (no (unknown) (unknown) Asymptomatic microscopic (units (unknown) date) hematuria unknown) (unknown) (no (unknown) (unknown) Attending Dr: Maxx Roberson (units (unknown) date) unknown) (unknown) (no (unknown) (unknown) BMI 30.4 (units (unkno wn) date) unknown) (unknown) (no (unknown) (unknown) BP 158/82 H (units (un known) date) unknown) (unknown) (no (unknown) (unknown) BPH (benign prostatic (un its (unknown) date) hyperplasia) (Unknown) unknown ) (unknown) (no (unknown) (unknown) Blood Pressure Location Rt (units (unknown) date) radial unknown) (unknown) (no (unknown) (unknown) CKD (chronic kidney (unit s (unknown) date) disease) (Unknown) unknown) (unknown) (no (unknown) (unknown) Co Q-10 11/13/22 [History (units (unknown) date) Confirmed 11/26/22] unknown) (unknown) (no (unknown) (unknown) Colon polyps (Unknown) (u nits (unknown) date) unknown) (unknown) (no (unknown) (unknown) Confirmed 11/26/22] (unit s (unknown) date) unknown) (unknown) (no (unknown) (unknown) : 1945 (units (unknown) date) Acct:[id number] unknown) (unknown) (no (unknown) (unknown) DOG DANDER Allergy (Mild, (units (unknown) date) Uncoded 11/26/22 13:49) unknow n) (unknown) (no (unknown) (unknown) Dept at . (u nits (unknown) date) unknown) (unknown) (no (unknown) (unknown) Diabetes (Unknown) (units (unknown) date) unknown) (unknown) (no (unknown) (unknown) Diabetic Shoes + Insoles (units (unknown) date) #4 ea 08/28/22 [Rx unknown) Confirmed 11/26/22] (unknown) (no (unknown) (unknown) Documented By: Maxx Roberson (units (unknown) date) Rylee BROTHERS 11/26/22 1341 unknown) (unknown) (no (unknown) (unknown) Draft (units (unkno wn) date) unknown) (unknown) (no (unknown) (unknown) Elevated PSA (units (u nknown) date) unknown) (unknown) (no (unknown) (unknown) Family History (Reviewed (units (unknown) date) 08/21/18 @ 15:25 by Greer unkno wn) Kimberley Flores MD) (unknown) (no (unknown) (unknown) Father Cancer (u nits (unknown) date) unknown) (unknown) (no (unknown) (unknown) GERD (gastroesophageal (u nits (unknown) date) reflux disease) (Unknown) unkn own) (unknown) (no (unknown) (unknown) Glucose: Test Strips #250 (units (unknown) date) ea 11/18/20 [Rx Confirmed unkn own) 11/26/22] (unknown) (no (unknown) (unknown) Hearing loss () ( units (unknown) date) unknown) (unknown) (no (unknown) (unknown) Height 5 ft 7 in (units (unknown) date) unknown) (unknown) (no (unknown) (unknown) History of (units (unk nown) date) esophagogastroduodenoscopy unk nown) (EGD) (08/2018) (unknown) (no (unknown) (unknown) History of kidney stones (units (unknown) date) unknown) (unknown) (no (unknown) (unknown) History of tonsillectomy (units (unknown) date) unknown) (unknown) (no (unknown) (unknown) Hypertension (Unknown) (u nits (unknown) date) unknown) (unknown) (no (unknown) (unknown) Hypothyroidism (Unknown) (units (unknown) date) unknown) (unknown) (no (unknown) (unknown) Insulin Aspart sliding (u nits (unknown) date) scale SUBCUT 10/27/19 unknown) [History Confirmed 11/26/22] (unknown) (no (unknown) (unknown) Intake Note: (units (u nknown) date) unknown) (unknown) (no (unknown) (unknown) Intake performed by: (uni ts (unknown) date) Tanya Gutiérrez unknown) (unknown) (no (unknown) (unknown) Intake (units (unkno wn) date) unknown) (unknown) (no (unknown) (unknown) Intake- Clincial Staff (u nits (unknown) date) unknown) (unknown) (no (unknown) (unknown) [facility] (units (unknown) date) unknown) (unknown) (no (unknown) (unknown) Kidney stone (units (u nknown) date) unknown) (unknown) (no (unknown) (unknown) Left renal stone (units (unknown) date) unknown) (unknown) (no (unknown) (unknown) Loc: [facility] (units (unkno wn) date) unknown) (unknown) (no (unknown) (unknown) Medical History (Updated (units (unknown) date) 10/22/22 @ 13:43 by Maxx Mckee un known) MD Da) (unknown) (no (unknown) (unknown) Medications (units (un known) date) unknown) (unknown) (no (unknown) (unknown) Mother Cancer (u nits (unknown) date) unknown) (unknown) (no (unknown) (unknown) Neuropathy (Unknown) (uni ts (unknown) date) unknown) (unknown) (no (unknown) (unknown) Osteopenia (07/2016) (uni ts (unknown) date) unknown) (unknown) (no (unknown) (unknown) Oxygen Delivery Method (u nits (unknown) date) room air unknown) (unknown) (no (unknown) (unknown) PFSH (units (unkno wn) date) unknown) (unknown) (no (unknown) (unknown) Patient: Tyshawn Camara (units (unknown) date) MR#: [id number] unknown) (unknown) (no (unknown) (unknown) Penicillins Allergy (unit s (unknown) date) (Unknown, Verified 11/26/22 un known) 13:49) (unknown) (no (unknown) (unknown) Position Sitting (units (unknown) date) unknown) (unknown) (no (unknown) (unknown) Previous occupational (un its (unknown) date) history: retired unknown) (unknown) (no (unknown) (unknown) Pulse 64 (units (unkno wn) date) unknown) (unknown) (no (unknown) (unknown) Pulse Oximetry (%) 96 (un its (unknown) date) unknown) (unknown) (no (unknown) (unknown) Pulse Source Monitor (uni ts (unknown) date) unknown) (unknown) (no (unknown) (unknown) QAC #30 mL 11/02/20 [Rx ( units (unknown) date) Confirmed 11/26/22] unknown) (unknown) (no (unknown) (unknown) Reason For Visit (units (unknown) date) unknown) (unknown) (no (unknown) (unknown) Relief) 1 spray intranasal (units (unknown) date) QDAY ##3 02/14/21 [Rx unknown) Confirmed 11/26/22] (unknown) (no (unknown) (unknown) Secondhand smoke exposure (units (unknown) date) unknown) (unknown) (no (unknown) (unknown) Signed By: (units (unk nown) date) unknown) (unknown) (no (unknown) (unknown) Smoking Status: Never (un its (unknown) date) smoker unknown) (unknown) (no (unknown) (unknown) Social History (Updated ( units (unknown) date) 08/20/22 @ 12:32 by Valentina jasminek curt Lopez RN) (unknown) (no (unknown) (unknown) Stroke (Unknown) (units (unknown) date) unknown) (unknown) (no (unknown) (unknown) Surgical History (Updated (units (unknown) date) 11/09/22 @ 11:34 by Abril Robin un known) SHEA Churchill) (unknown) (no (unknown) (unknown) This note may have been ( units (unknown) date) all or partially generated unk nown) using voice recognition (unknown) (no (unknown) (unknown) Tobacco Status (units (unknown) date) unknown) (unknown) (no (unknown) (unknown) Type(s) of exercise: none (units (unknown) date) unknown) (unknown) (no (unknown) (unknown) Urology Office Visit (uni ts (unknown) date) unknown) (unknown) (no (unknown) (unknown) Visit Reasons: PO w/KUB ( units (unknown) date) unknown) (unknown) (no (unknown) (unknown) Vitals (units (unkno wn) date) unknown) (unknown) (no (unknown) (unknown) Weight 194 lb (units ( unknown) date) unknown) (unknown) (no (unknown) (unknown) [Rx Confirmed 11/26/22] ( units (unknown) date) unknown) (unknown) (no (unknown) (unknown) alcohol intake: current ( units (unknown) date) unknown) (unknown) (no (unknown) (unknown) alendronate 35 mg tablet (units (unknown) date) 35 mg PO Q WEEK #12 tabs unkno wn) 11/18/20 [Rx Confirmed (unknown) (no (unknown) (unknown) alfuzosin 10 mg (units (unknown) date) tablet,extended release 24 unk nown) hr 10 mg PO QDAY #90 tabs 08/19/20 (unknown) (no (unknown) (unknown) amlodipine 10 mg tablet 10 (units (unknown) date) mg PO Q DAY #90 tabs unknown) 08/19/20 [Rx Confirmed 11/26/22] (unknown) (no (unknown) (unknown) atenolol 100 mg tablet 100 (units (unknown) date) mg PO Q DAY #90 tabs unknown) 08/19/20 [Rx Confirmed 11/26/22] (unknown) (no (unknown) (unknown) atorvastatin 20 mg tablet (units (unknown) date) (Lipitor) 20 mg PO HS #90 unkn own) tabs 08/19/20 [Rx Confirmed (unknown) (no (unknown) (unknown) caffeine: Yes (units ( unknown) date) unknown) (unknown) (no (unknown) (unknown) ciprofloxacin Allergy (un its (unknown) date) (Unknown, Verified 11/26/22 un known) 13:49) (unknown) (no (unknown) (unknown) epinephrine 0.3 mg/0.3 mL (units (unknown) date) injection, auto-injector unkno wn) (EpiPen 2-Donte) 0.3 mg (0.3 (unknown) (no (unknown) (unknown) fluticasone propionate 50 (units (unknown) date) mcg/actuation nasal unknown) spray,suspension (Flonase Allergy (unknown) (no (unknown) (unknown) has stopped. (units (u nknown) date) unknown) (unknown) (no (unknown) (unknown) have occurred. If there ( units (unknown) date) are any questions, please unkn own) contact the Medical Records (unknown) (no (unknown) (unknown) household members: spouse (units (unknown) date) unknown) (unknown) (no (unknown) (unknown) insulin aspart U-100 100 (units (unknown) date) unit/mL subcutaneous unknown) solution 25 unit (0.25 mL) SUBCUT (unknown) (no (unknown) (unknown) insulin glargine 100 (uni ts (unknown) date) unit/mL subcutaneous unknown) solution (Lantus U-100 Insulin) 20 (unknown) (no (unknown) (unknown) insulin syringe-needle (u nits (unknown) date) U-100 1 mL 29 gauge x 1/2' unk nown) (Advocate Syringes) #100 ea (unknown) (no (unknown) (unknown) isosorbide mononitrate 30 (units (unknown) date) mg tablet,extended release unk nown) 24 hr 60 mg PO DAILY #90 (unknown) (no (unknown) (unknown) levothyroxine 112 mcg (un its (unknown) date) tablet 112 mcg PO QAM #90 unkn own) tabs 02/04/20 [Rx Confirmed (unknown) (no (unknown) (unknown) loratadine 10 mg tablet 10 (units (unknown) date) mg PO DAILY 07/10/22 unknown) [History Confirmed 11/26/22] (unknown) (no (unknown) (unknown) mL) IM ONCE #2 ea 06/19/19 (units (unknown) date) [Rx Confirmed 11/26/22] unknow n) (unknown) (no (unknown) (unknown) marital status: ( units (unknown) date) unknown) (unknown) (no (unknown) (unknown) may occur. Occasional (un its (unknown) date) wrong-word or 'sound-alike' un known) substitutions may have (unknown) (no (unknown) (unknown) number of children: 3 (un its (unknown) date) unknown) (unknown) (no (unknown) (unknown) occupational status: other (units (unknown) date) unknown) (unknown) (no (unknown) (unknown) occurred due to the (unit s (unknown) date) inherent limitations of unknow n) voice recognition software. Please (unknown) (no (unknown) (unknown) omeprazole 20 mg (units (unknown) date) capsule,delayed release 40 unk nown) mg PO DAILY #90 caps 07/10/22 [Rx (unknown) (no (unknown) (unknown) phenazopyridine 200 mg (u nits (unknown) date) tablet (Pyridium) 200 mg PO un known) TID PRN Bladder irritation (unknown) (no (unknown) (unknown) read the note carefully ( units (unknown) date) and recognize, using unknown) context, where these substitutions (unknown) (no (unknown) (unknown) second hand exposure: No (units (unknown) date) unknown) (unknown) (no (unknown) (unknown) software. Although every (units (unknown) date) effort is made to edit unknown ) content, business management consultant errors (unknown) (no (unknown) (unknown) states since the procedure (units (unknown) date) he has had a lot less pain unk nown) and the urinary bleeding (unknown) (no (unknown) (unknown) substance use type: does (units (unknown) date) not use unknown) (unknown) (no (unknown) (unknown) sulfamethoxazole [From (u nits (unknown) date) Bactrim] Allergy (Unknown, unk nown) Verified 11/26/22 13:49) (unknown) (no (unknown) (unknown) tabs 07/10/22 [Rx (units (unknown) date) Confirmed 11/26/22] unknown) (unknown) (no (unknown) (unknown) trimethoprim [From (units (unknown) date) Bactrim] Allergy (Unknown, unk nown) Verified 11/26/22 13:49) (unknown) (no (unknown) (unknown) unit (0.2 mL) SUBCUT HS #3 (units (unknown) date) vials 02/10/20 [Rx unknown) Confirmed 11/26/22] Result panel 19 (unknown) (no (unknown) (unknown) (no value) (units (unk nown) date) unknown) (unknown) (no (unknown) (unknown) #30 tabs 11/13/22 [Rx (un its (unknown) date) Confirmed 11/26/22] unknown) (unknown) (no (unknown) (unknown) [id number] (units (unkno wn) date) unknown) (unknown) (no (unknown) (unknown) 11/26/22 (units (unkno wn) date) unknown) (unknown) (no (unknown) (unknown) 11/26/22] (units (unkn own) date) unknown) (unknown) (no (unknown) (unknown) 01/31/21 [Rx Confirmed (u nits (unknown) date) 11/26/22] unknown) (unknown) (no (unknown) (unknown) 13:47 (units (unkno wn) date) unknown) (unknown) (no (unknown) (unknown) 77 y/o male presenting (u nits (unknown) date) today for a post op follow unk nown) up and review of KUB. Patient (unknown) (no (unknown) (unknown) Abnormal ultrasound of (u nits (unknown) date) prostate unknown) (unknown) (no (unknown) (unknown) Accuchek Marcella lancets - (units (unknown) date) Softclix #250 ea 11/18/20 unkn own) [Rx Confirmed 11/26/22] (unknown) (no (unknown) (unknown) Age/Sex: 77 / M Date of ( units (unknown) date) Service: unknown) (unknown) (no (unknown) (unknown) Alcohol Prep Pads #250 ea (units (unknown) date) 11/18/20 [Rx Confirmed unknown ) 11/26/22] (unknown) (no (unknown) (unknown) Allergies (units (unkn own) date) unknown) (unknown) (no (unknown) (unknown) [place] [address] (unit s (unknown) date) unknown) (unknown) (no (unknown) (unknown) Assessment + Plan (units (unknown) date) unknown) (unknown) (no (unknown) (unknown) Asymptomatic microscopic (units (unknown) date) hematuria unknown) (unknown) (no (unknown) (unknown) Attending Dr: Maxx Roberson (units (unknown) date) unknown) (unknown) (no (unknown) (unknown) BMI 30.4 (units (unkno wn) date) unknown) (unknown) (no (unknown) (unknown) BP 158/82 H (units (un known) date) unknown) (unknown) (no (unknown) (unknown) BPH (benign prostatic (un its (unknown) date) hyperplasia) (Unknown) unknown ) (unknown) (no (unknown) (unknown) Blood Pressure Location Rt (units (unknown) date) radial unknown) (unknown) (no (unknown) (unknown) CKD (chronic kidney (unit s (unknown) date) disease) (Unknown) unknown) (unknown) (no (unknown) (unknown) Co Q-10 11/13/22 [History (units (unknown) date) Confirmed 11/26/22] unknown) (unknown) (no (unknown) (unknown) Colon polyps (Unknown) (u nits (unknown) date) unknown) (unknown) (no (unknown) (unknown) Confirmed 11/26/22] (unit s (unknown) date) unknown) (unknown) (no (unknown) (unknown) : 1945 (units (unknown) date) Acct:[id number] unknown) (unknown) (no (unknown) (unknown) DOG DANDER Allergy (Mild, (units (unknown) date) Uncoded 11/26/22 13:49) unknow n) (unknown) (no (unknown) (unknown) Dept at . (u nits (unknown) date) unknown) (unknown) (no (unknown) (unknown) Diabetes (Unknown) (units (unknown) date) unknown) (unknown) (no (unknown) (unknown) Diabetic Shoes + Insoles (units (unknown) date) #4 ea 08/28/22 [Rx unknown) Confirmed 11/26/22] (unknown) (no (unknown) (unknown) Documented By: aMxx Roberson (units (unknown) date) Rylee BROTHERS 11/26/22 1341 unknown) (unknown) (no (unknown) (unknown) Draft (units (unkno wn) date) unknown) (unknown) (no (unknown) (unknown) Elevated PSA (units (u nknown) date) unknown) (unknown) (no (unknown) (unknown) Family History (Reviewed (units (unknown) date) 08/21/18 @ 15:25 by Greer unkno kurt) Kimberley Flores MD) (unknown) (no (unknown) (unknown) Father Cancer (u nits (unknown) date) unknown) (unknown) (no (unknown) (unknown) GERD (gastroesophageal (u nits (unknown) date) reflux disease) (Unknown) unkn own) (unknown) (no (unknown) (unknown) Glucose: Test Strips #250 (units (unknown) date) ea 11/18/20 [Rx Confirmed unkn own) 11/26/22] (unknown) (no (unknown) (unknown) Hearing loss () ( units (unknown) date) unknown) (unknown) (no (unknown) (unknown) Height 5 ft 7 in (units (unknown) date) unknown) (unknown) (no (unknown) (unknown) History of (units (unk nown) date) esophagogastroduodenoscopy unk nown) (EGD) (08/2018) (unknown) (no (unknown) (unknown) History of kidney stones (units (unknown) date) unknown) (unknown) (no (unknown) (unknown) History of tonsillectomy (units (unknown) date) unknown) (unknown) (no (unknown) (unknown) Hypertension (Unknown) (u nits (unknown) date) unknown) (unknown) (no (unknown) (unknown) Hypothyroidism (Unknown) (units (unknown) date) unknown) (unknown) (no (unknown) (unknown) Insulin Aspart sliding (u nits (unknown) date) scale SUBCUT 10/27/19 unknown) [History Confirmed 11/26/22] (unknown) (no (unknown) (unknown) Intake Note: (units (u nknown) date) unknown) (unknown) (no (unknown) (unknown) Intake performed by: (uni ts (unknown) date) Tanya Gutiérrez unknown) (unknown) (no (unknown) (unknown) Intake (units (unkno wn) date) unknown) (unknown) (no (unknown) (unknown) Intake- Clincial Staff (u nits (unknown) date) unknown) (unknown) (no (unknown) (unknown) [facility] (units (unknown) date) unknown) (unknown) (no (unknown) (unknown) Kidney stone (units (u nknown) date) unknown) (unknown) (no (unknown) (unknown) Left renal stone (units (unknown) date) unknown) (unknown) (no (unknown) (unknown) Loc: [facility] (units (unkno wn) date) unknown) (unknown) (no (unknown) (unknown) Medical History (Updated (units (unknown) date) 10/22/22 @ 13:43 by Maxx Mckee un known) MD Da) (unknown) (no (unknown) (unknown) Medications (units (un known) date) unknown) (unknown) (no (unknown) (unknown) Mother Cancer (u nits (unknown) date) unknown) (unknown) (no (unknown) (unknown) Neuropathy (Unknown) (uni ts (unknown) date) unknown) (unknown) (no (unknown) (unknown) Orders (units (unkno wn) date) unknown) (unknown) (no (unknown) (unknown) Orders: (units (unkno wn) date) unknown) (unknown) (no (unknown) (unknown) Osteopenia (07/2016) (uni ts (unknown) date) unknown) (unknown) (no (unknown) (unknown) Oxygen Delivery Method (u nits (unknown) date) room air unknown) (unknown) (no (unknown) (unknown) PFSH (units (unkno wn) date) unknown) (unknown) (no (unknown) (unknown) POC Urine Dip Today N39.0 (units (unknown) date) - Urinary tract infection, kenroyk la[facility]) site not specified (unknown) (no (unknown) (unknown) Patient: Tyshawn Camara (units (unknown) date) MR#: [id number] unknown) (unknown) (no (unknown) (unknown) Penicillins Allergy (unit s (unknown) date) (Unknown, Verified 11/26/22 un known) 13:49) (unknown) (no (unknown) (unknown) Position Sitting (units (unknown) date) unknown) (unknown) (no (unknown) (unknown) Previous occupational (un its (unknown) date) history: retired unknown) (unknown) (no (unknown) (unknown) Pulse 64 (units (unkno wn) date) unknown) (unknown) (no (unknown) (unknown) Pulse Oximetry (%) 96 (un its (unknown) date) unknown) (unknown) (no (unknown) (unknown) Pulse Source Monitor (uni ts (unknown) date) unknown) (unknown) (no (unknown) (unknown) QAC #30 mL 11/02/20 [Rx ( units (unknown) date) Confirmed 11/26/22] unknown) (unknown) (no (unknown) (unknown) Reason For Visit (units (unknown) date) unknown) (unknown) (no (unknown) (unknown) Relief) 1 spray intranasal (units (unknown) date) QDAY ##3 02/14/21 [Rx unknown) Confirmed 11/26/22] (unknown) (no (unknown) (unknown) Secondhand smoke exposure (units (unknown) date) unknown) (unknown) (no (unknown) (unknown) Signed By: (units (unk nown) date) unknown) (unknown) (no (unknown) (unknown) Smoking Status: Never (un its (unknown) date) smoker unknown) (unknown) (no (unknown) (unknown) Social History (Updated ( units (unknown) date) 08/20/22 @ 12:32 by Valentina puckett) SHEA Lopez) (unknown) (no (unknown) (unknown) Stroke (Unknown) (units (unknown) date) unknown) (unknown) (no (unknown) (unknown) Surgical History (Updated (units (unknown) date) 11/09/22 @ 11:34 by Abril A un known) SHEA Churchill) (unknown) (no (unknown) (unknown) This note may have been ( units (unknown) date) all or partially generated unk nown) using voice recognition (unknown) (no (unknown) (unknown) Tobacco Status (units (unknown) date) unknown) (unknown) (no (unknown) (unknown) Type(s) of exercise: none (units (unknown) date) unknown) (unknown) (no (unknown) (unknown) Urology Office Visit (uni ts (unknown) date) unknown) (unknown) (no (unknown) (unknown) Visit Reasons: PO w/KUB ( units (unknown) date) unknown) (unknown) (no (unknown) (unknown) Vitals (units (unkno wn) date) unknown) (unknown) (no (unknown) (unknown) Weight 194 lb (units ( unknown) date) unknown) (unknown) (no (unknown) (unknown) [Rx Confirmed 11/26/22] ( units (unknown) date) unknown) (unknown) (no (unknown) (unknown) alcohol intake: current ( units (unknown) date) unknown) (unknown) (no (unknown) (unknown) alendronate 35 mg tablet (units (unknown) date) 35 mg PO Q WEEK #12 tabs unkno wn) 11/18/20 [Rx Confirmed (unknown) (no (unknown) (unknown) alfuzosin 10 mg (units (unknown) date) tablet,extended release 24 unk nown) hr 10 mg PO QDAY #90 tabs 08/19/20 (unknown) (no (unknown) (unknown) amlodipine 10 mg tablet 10 (units (unknown) date) mg PO Q DAY #90 tabs unknown) 08/19/20 [Rx Confirmed 11/26/22] (unknown) (no (unknown) (unknown) atenolol 100 mg tablet 100 (units (unknown) date) mg PO Q DAY #90 tabs unknown) 08/19/20 [Rx Confirmed 11/26/22] (unknown) (no (unknown) (unknown) atorvastatin 20 mg tablet (units (unknown) date) (Lipitor) 20 mg PO HS #90 unkn own) tabs 08/19/20 [Rx Confirmed (unknown) (no (unknown) (unknown) caffeine: Yes (units ( unknown) date) unknown) (unknown) (no (unknown) (unknown) ciprofloxacin Allergy (un its (unknown) date) (Unknown, Verified 11/26/22 un known) 13:49) (unknown) (no (unknown) (unknown) epinephrine 0.3 mg/0.3 mL (units (unknown) date) injection, auto-injector unkno wn) (EpiPen 2-Donte) 0.3 mg (0.3 (unknown) (no (unknown) (unknown) fluticasone propionate 50 (units (unknown) date) mcg/actuation nasal unknown) spray,suspension (Flonase Allergy (unknown) (no (unknown) (unknown) has stopped. (units (u nknown) date) unknown) (unknown) (no (unknown) (unknown) have occurred. If there ( units (unknown) date) are any questions, please unkn own) contact the Medical Records (unknown) (no (unknown) (unknown) household members: spouse (units (unknown) date) unknown) (unknown) (no (unknown) (unknown) insulin aspart U-100 100 (units (unknown) date) unit/mL subcutaneous unknown) solution 25 unit (0.25 mL) SUBCUT (unknown) (no (unknown) (unknown) insulin glargine 100 (uni ts (unknown) date) unit/mL subcutaneous unknown) solution (Lantus U-100 Insulin) 20 (unknown) (no (unknown) (unknown) insulin syringe-needle (u nits (unknown) date) U-100 1 mL 29 gauge x 1/2' unk nown) (Advocate Syringes) #100 ea (unknown) (no (unknown) (unknown) isosorbide mononitrate 30 (units (unknown) date) mg tablet,extended release unk nown) 24 hr 60 mg PO DAILY #90 (unknown) (no (unknown) (unknown) levothyroxine 112 mcg (un its (unknown) date) tablet 112 mcg PO QAM #90 unkn own) tabs 02/04/20 [Rx Confirmed (unknown) (no (unknown) (unknown) loratadine 10 mg tablet 10 (units (unknown) date) mg PO DAILY 07/10/22 unknown) [History Confirmed 11/26/22] (unknown) (no (unknown) (unknown) mL) IM ONCE #2 ea 06/19/19 (units (unknown) date) [Rx Confirmed 11/26/22] unknow n) (unknown) (no (unknown) (unknown) marital status: ( units (unknown) date) unknown) (unknown) (no (unknown) (unknown) may occur. Occasional (un its (unknown) date) wrong-word or 'sound-alike' un known) substitutions may have (unknown) (no (unknown) (unknown) number of children: 3 (un its (unknown) date) unknown) (unknown) (no (unknown) (unknown) occupational status: other (units (unknown) date) unknown) (unknown) (no (unknown) (unknown) occurred due to the (unit s (unknown) date) inherent limitations of unknow n) voice recognition software. Please (unknown) (no (unknown) (unknown) omeprazole 20 mg (units (unknown) date) capsule,delayed release 40 unk nown) mg PO DAILY #90 caps 07/10/22 [Rx (unknown) (no (unknown) (unknown) phenazopyridine 200 mg (u nits (unknown) date) tablet (Pyridium) 200 mg PO un known) TID PRN Bladder irritation (unknown) (no (unknown) (unknown) read the note carefully ( units (unknown) date) and recognize, using unknown) context, where these substitutions (unknown) (no (unknown) (unknown) second hand exposure: No (units (unknown) date) unknown) (unknown) (no (unknown) (unknown) software. Although every (units (unknown) date) effort is made to edit unknown ) content, business management consultant errors (unknown) (no (unknown) (unknown) states since the procedure (units (unknown) date) he has had a lot less pain unk nown) and the urinary bleeding (unknown) (no (unknown) (unknown) substance use type: does (units (unknown) date) not use unknown) (unknown) (no (unknown) (unknown) sulfamethoxazole [From (u nits (unknown) date) Bactrim] Allergy (Unknown, unk nown) Verified 11/26/22 13:49) (unknown) (no (unknown) (unknown) tabs 07/10/22 [Rx (units (unknown) date) Confirmed 11/26/22] unknown) (unknown) (no (unknown) (unknown) trimethoprim [From (units (unknown) date) Bactrim] Allergy (Unknown, unk nown) Verified 11/26/22 13:49) (unknown) (no (unknown) (unknown) unit (0.2 mL) SUBCUT HS #3 (units (unknown) date) vials 02/10/20 [Rx unknown) Confirmed 11/26/22] Result panel 20 (unknown) (no (unknown) (unknown) (no value) (units (unk nown) date) unknown) (unknown) (no (unknown) (unknown) #30 tabs 11/13/22 [Rx (un its (unknown) date) Confirmed 11/26/22] unknown) (unknown) (no (unknown) (unknown) (1) Kidney stone: (units (unknown) date) unknown) (unknown) (no (unknown) (unknown) (2) 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: unknown) (unknown) (no (unknown) (unknown) (3) BPH (benign prostatic (units (unknown) date) hyperplasia): unknown) (unknown) (no (unknown) (unknown) [id number] (units (unkno wn) date) unknown) (unknown) (no (unknown) (unknown) 11/26/22 1411 (units ( unknown) date) unknown) (unknown) (no (unknown) (unknown) 11/26/22 (units (unkno wn) date) unknown) (unknown) (no (unknown) (unknown) 11/26/22] (units (unkn own) date) unknown) (unknown) (no (unknown) (unknown) 01/31/21 [Rx Confirmed (u nits (unknown) date) 11/26/22] unknown) (unknown) (no (unknown) (unknown) 13:47 (units (unkno wn) date) unknown) (unknown) (no (unknown) (unknown) 77 y/o male presenting (u nits (unknown) date) today for a post op follow unk nown) up and review of KUB. Patient (unknown) (no (unknown) (unknown) Abnormal ultrasound of (u nits (unknown) date) prostate unknown) (unknown) (no (unknown) (unknown) Accuchek Marcella lancets - (units (unknown) date) Softclix #250 ea 11/18/20 unkn own) [Rx Confirmed 11/26/22] (unknown) (no (unknown) (unknown) Add'l Complaint: (units (unknown) date) unknown) (unknown) (no (unknown) (unknown) Age/Sex: 77 / M Date of ( units (unknown) date) Service: unknown) (unknown) (no (unknown) (unknown) Alcohol Prep Pads #250 ea (units (unknown) date) 11/18/20 [Rx Confirmed unknown ) 11/26/22] (unknown) (no (unknown) (unknown) Allergies (units (unkn own) date) unknown) (unknown) (no (unknown) (unknown) JERMAINE Edward [id number] (unit s (unknown) date) unknown) (unknown) (no (unknown) (unknown) Assessment + Plan (units (unknown) date) unknown) (unknown) (no (unknown) (unknown) Assessment and plan: (uni ts (unknown) date) Patient doing well after unkno wn) lithotripsy. Appears to have (unknown) (no (unknown) (unknown) Asymptomatic microscopic (units (unknown) date) hematuria unknown) (unknown) (no (unknown) (unknown) Attending Dr: Maxx Roberson (units (unknown) date) unknown) (unknown) (no (unknown) (unknown) BMI 30.4 (units (unkno wn) date) unknown) (unknown) (no (unknown) (unknown) BP 158/82 H (units (un known) date) unknown) (unknown) (no (unknown) (unknown) BPH (benign prostatic (un its (unknown) date) hyperplasia) (Unknown) unknown ) (unknown) (no (unknown) (unknown) Blood Pressure Location Rt (units (unknown) date) radial unknown) (unknown) (no (unknown) (unknown) CKD (chronic kidney (unit s (unknown) date) disease) (Unknown) unknown) (unknown) (no (unknown) (unknown) Chief Complaint (units (unknown) date) unknown) (unknown) (no (unknown) (unknown) Chief Complaint: Left (un its (unknown) date) kidney stone (follow-up unknow n) extracorporeal shockwave (unknown) (no (unknown) (unknown) Co Q-10 11/13/22 [History (units (unknown) date) Confirmed 11/26/22] unknown) (unknown) (no (unknown) (unknown) Code(s): N40.0 - Benign ( units (unknown) date) prostatic hyperplasia unknown) without lower urinary tract (unknown) (no (unknown) (unknown) Code(s): (units (unkno wn) date) unknown) (unknown) (no (unknown) (unknown) Colon polyps (Unknown) (u nits (unknown) date) unknown) (unknown) (no (unknown) (unknown) Confirmed 11/26/22] (unit s (unknown) date) unknown) (unknown) (no (unknown) (unknown) : 1945 (units (unknown) date) Acct:[id number] unknown) (unknown) (no (unknown) (unknown) DOG DANDER Allergy (Mild, (units (unknown) date) Uncoded 11/26/22 13:49) unknow n) (unknown) (no (unknown) (unknown) Dept at . (u nits (unknown) date) unknown) (unknown) (no (unknown) (unknown) Details: (units (unkno wn) date) unknown) (unknown) (no (unknown) (unknown) Diabetes (Unknown) (units (unknown) date) unknown) (unknown) (no (unknown) (unknown) Diabetic Shoes + Insoles (units (unknown) date) #4 ea 08/28/22 [Rx unknown) Confirmed 11/26/22] (unknown) (no (unknown) (unknown) Documented By: Maxx Roberson (units (unknown) date) Rylee BROTHERS 11/26/22 1341 unknown) (unknown) (no (unknown) (unknown) Elevated PSA (units (u nknown) date) unknown) (unknown) (no (unknown) (unknown) Family History (Reviewed (units (unknown) date) 08/21/18 @ 15:25 by Greer hicks) Kimberley Flores MD) (unknown) (no (unknown) (unknown) Father Cancer (u nits (unknown) date) unknown) (unknown) (no (unknown) (unknown) GERD (gastroesophageal (u nits (unknown) date) reflux disease) (Unknown) unkn own) (unknown) (no (unknown) (unknown) Glucose: Test Strips #250 (units (unknown) date) ea 11/18/20 [Rx Confirmed unkn own) 11/26/22] (unknown) (no (unknown) (unknown) HPI (units (unkno wn) date) unknown) (unknown) (no (unknown) (unknown) He will try to leave us a (units (unknown) date) urine so that we can unknown) ascertain if there is occult (unknown) (no (unknown) (unknown) Hearing loss () ( units (unknown) date) unknown) (unknown) (no (unknown) (unknown) Height 5 ft 7 in (units (unknown) date) unknown) (unknown) (no (unknown) (unknown) History of (units (unk nown) date) esophagogastroduodenoscopy unk nown) (EGD) (08/2018) (unknown) (no (unknown) (unknown) History of kidney stones (units (unknown) date) unknown) (unknown) (no (unknown) (unknown) History of tonsillectomy (units (unknown) date) unknown) (unknown) (no (unknown) (unknown) Hypertension (Unknown) (u nits (unknown) date) unknown) (unknown) (no (unknown) (unknown) Hypothyroidism (Unknown) (units (unknown) date) unknown) (unknown) (no (unknown) (unknown) Insulin Aspart sliding (u nits (unknown) date) scale SUBCUT 10/27/19 unknown) [History Confirmed 11/26/22] (unknown) (no (unknown) (unknown) Intake Note: (units (u nknown) date) unknown) (unknown) (no (unknown) (unknown) Intake performed by: (uni ts (unknown) date) Tayna Gutiérrez unknown) (unknown) (no (unknown) (unknown) Intake (units (unkno wn) date) unknown) (unknown) (no (unknown) (unknown) Intake- Clincial Staff (u nits (unknown) date) unknown) (unknown) (no (unknown) (unknown) [facility] (units (unknown) date) unknown) (unknown) (no (unknown) (unknown) Kidney stone (units (u nknown) date) unknown) (unknown) (no (unknown) (unknown) Left renal stone (units (unknown) date) unknown) (unknown) (no (unknown) (unknown) Loc: [facility] (units (unkno wn) date) unknown) (unknown) (no (unknown) (unknown) Lower urinary tract (unit s (unknown) date) symptom presence: symptoms unk nown) absent Qualified (unknown) (no (unknown) (unknown) Medical History (Updated (units (unknown) date) 10/22/22 @ 13:43 by Maxx Mckee un known) MD Da) (unknown) (no (unknown) (unknown) Medications (units (un known) date) unknown) (unknown) (no (unknown) (unknown) Mother Cancer (u nits (unknown) date) unknown) (unknown) (no (unknown) (unknown) N20.0 - Calculus of kidney (units (unknown) date) unknown) (unknown) (no (unknown) (unknown) N40.0 - Benign prostatic (units (unknown) date) hyperplasia without lower unkn own) urinary tract symptoms (unknown) (no (unknown) (unknown) Neuropathy (Unknown) (uni ts (unknown) date) unknown) (unknown) (no (unknown) (unknown) Orders (units (unkno wn) date) unknown) (unknown) (no (unknown) (unknown) Orders: (units (unkno wn) date) unknown) (unknown) (no (unknown) (unknown) Osteopenia (07/2016) (uni ts (unknown) date) unknown) (unknown) (no (unknown) (unknown) Oxygen Delivery Method (u nits (unknown) date) room air unknown) (unknown) (no (unknown) (unknown) PFSH (units (unkno wn) date) unknown) (unknown) (no (unknown) (unknown) POC Urine Dip Today N39.0 (units (unknown) date) - Urinary tract infection, unk nown) site not specified (unknown) (no (unknown) (unknown) Patient: Tyshawn Camara (units (unknown) date) MR#: [id number] unknown) (unknown) (no (unknown) (unknown) Penicillins Allergy (unit s (unknown) date) (Unknown, Verified 11/26/22 un known) 13:49) (unknown) (no (unknown) (unknown) Plan (units (unkno wn) date) unknown) (unknown) (no (unknown) (unknown) Position Sitting (units (unknown) date) unknown) (unknown) (no (unknown) (unknown) Previous occupational (un its (unknown) date) history: retired unknown) (unknown) (no (unknown) (unknown) Pulse 64 (units (unkno wn) date) unknown) (unknown) (no (unknown) (unknown) Pulse Oximetry (%) 96 (un its (unknown) date) unknown) (unknown) (no (unknown) (unknown) Pulse Source Monitor (uni ts (unknown) date) unknown) (unknown) (no (unknown) (unknown) QAC #30 mL 11/02/20 [Rx ( units (unknown) date) Confirmed 11/26/22] unknown) (unknown) (no (unknown) (unknown) Qualifiers: (units (un known) date) unknown) (unknown) (no (unknown) (unknown) Reason For Visit (units (unknown) date) unknown) (unknown) (no (unknown) (unknown) Relief) 1 spray intranasal (units (unknown) date) QDAY ##3 02/14/21 [Rx unknown) Confirmed 11/26/22] (unknown) (no (unknown) (unknown) 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, history of elevated kamilla puckett) PSA, benign prostatic (unknown) (no (unknown) (unknown) Secondhand smoke exposure (units (unknown) date) unknown) (unknown) (no (unknown) (unknown) Signed By: <Electronically (units (unknown) date) signed by Maxx Roberson MD> un known) (unknown) (no (unknown) (unknown) Signed (units (unkno wn) date) unknown) (unknown) (no (unknown) (unknown) Smoking Status: Never (un its (unknown) date) smoker unknown) (unknown) (no (unknown) (unknown) Social History (Updated ( units (unknown) date) 08/20/22 @ 12:32 by Valentina Lopez RN) (unknown) (no (unknown) (unknown) Status: Acute (units ( unknown) date) unknown) (unknown) (no (unknown) (unknown) Status: Chronic (units (unknown) date) unknown) (unknown) (no (unknown) (unknown) Stroke (Unknown) (units (unknown) date) unknown) (unknown) (no (unknown) (unknown) Surgical History (Updated (units (unknown) date) 11/09/22 @ 11:34 by Abril Robin un known) Zhao RN) (unknown) (no (unknown) (unknown) This 77-year-old male (un its (unknown) date) returns to urology clinic unkn own) in follow-up of his recent left (unknown) (no (unknown) (unknown) This note may have been ( units (unknown) date) all or partially generated unk nown) using voice recognition (unknown) (no (unknown) (unknown) Tobacco Status (units (unknown) date) unknown) (unknown) (no (unknown) (unknown) Type(s) of exercise: none (units (unknown) date) unknown) (unknown) (no (unknown) (unknown) Urology Office Visit (uni ts (unknown) date) unknown) (unknown) (no (unknown) (unknown) Visit Reasons: PO w/KUB ( units (unknown) date) unknown) (unknown) (no (unknown) (unknown) Vitals (units (unkno wn) date) unknown) (unknown) (no (unknown) (unknown) Weight 194 lb (units ( unknown) date) unknown) (unknown) (no (unknown) (unknown) Will await his urine have (units (unknown) date) him return to clinic in 2-3 un known) weeks with a KUB have him (unknown) (no (unknown) (unknown) XR KUB 2 Weeks N20.0 - (u nits (unknown) date) Calculus of kidney unknown) (unknown) (no (unknown) (unknown) Z96.0 - Presence of (unit s (unknown) date) urogenital implants unknown) (unknown) (no (unknown) (unknown) [Rx Confirmed 11/26/22] ( units (unknown) date) unknown) (unknown) (no (unknown) (unknown) alcohol intake: current ( units (unknown) date) unknown) (unknown) (no (unknown) (unknown) alendronate 35 mg tablet (units (unknown) date) 35 mg PO Q WEEK #12 tabs unkno wn) 11/18/20 [Rx Confirmed (unknown) (no (unknown) (unknown) alfuzosin 10 mg (units (unknown) date) tablet,extended release 24 unk nown) hr 10 mg PO QDAY #90 tabs 08/19/20 (unknown) (no (unknown) (unknown) amlodipine 10 mg tablet 10 (units (unknown) date) mg PO Q DAY #90 tabs unknown) 08/19/20 [Rx Confirmed 11/26/22] (unknown) (no (unknown) (unknown) atenolol 100 mg tablet 100 (units (unknown) date) mg PO Q DAY #90 tabs unknown) 08/19/20 [Rx Confirmed 11/26/22] (unknown) (no (unknown) (unknown) atorvastatin 20 mg tablet (units (unknown) date) (Lipitor) 20 mg PO HS #90 unkn own) tabs 08/19/20 [Rx Confirmed (unknown) (no (unknown) (unknown) body aches at move from ( units (unknown) date) his shoulders down to his unkn own) thighs not quite sure what to (unknown) (no (unknown) (unknown) caffeine: Yes (units ( unknown) date) unknown) (unknown) (no (unknown) (unknown) ciprofloxacin Allergy (un its (unknown) date) (Unknown, Verified 11/26/22 un known) 13:49) (unknown) (no (unknown) (unknown) denies dysuria, frequency, (units (unknown) date) urgency, sign or symptom of un known) urinary tract infection. (unknown) (no (unknown) (unknown) epinephrine 0.3 mg/0.3 mL (units (unknown) date) injection, auto-injector unkno wn) (EpiPen 2-Donte) 0.3 mg (0.3 (unknown) (no (unknown) (unknown) extracorporeal shockwave (units (unknown) date) lithotripsy. He reports unknow n) that afterward he had some (unknown) (no (unknown) (unknown) facilitate mobilizing the (units (unknown) date) lower pole fragments. unknown) Overall recovering well after (unknown) (no (unknown) (unknown) fluticasone propionate 50 (units (unknown) date) mcg/actuation nasal unknown) spray,suspension (Flonase Allergy (unknown) (no (unknown) (unknown) has stopped. (units (u nknown) date) unknown) (unknown) (no (unknown) (unknown) have occurred. If there ( units (unknown) date) are any questions, please unkn own) contact the Medical Records (unknown) (no (unknown) (unknown) hematuria. (units (unk nown) date) unknown) (unknown) (no (unknown) (unknown) household members: spouse (units (unknown) date) unknown) (unknown) (no (unknown) (unknown) hyperplasia, lower urinary (units (unknown) date) tract symptoms, history of unk nown) asymptomatic microscopic (unknown) (no (unknown) (unknown) infection. Directed him to (units (unknown) date) start some procedural unknown) maneuvers to see if he can not (unknown) (no (unknown) (unknown) insulin aspart U-100 100 (units (unknown) date) unit/mL subcutaneous unknown) solution 25 unit (0.25 mL) SUBCUT (unknown) (no (unknown) (unknown) insulin glargine 100 (uni ts (unknown) date) unit/mL subcutaneous unknown) solution (Lantus U-100 Insulin) 20 (unknown) (no (unknown) (unknown) insulin syringe-needle (u nits (unknown) date) U-100 1 mL 29 gauge x 1/2' unk nown) (Advocate Syringes) #100 ea (unknown) (no (unknown) (unknown) isosorbide mononitrate 30 (units (unknown) date) mg tablet,extended release unk nown) 24 hr 60 mg PO DAILY #90 (unknown) (no (unknown) (unknown) levothyroxine 112 mcg (un its (unknown) date) tablet 112 mcg PO QAM #90 unkn own) tabs 02/04/20 [Rx Confirmed (unknown) (no (unknown) (unknown) lithotripsy) (units (u nknown) date) unknown) (unknown) (no (unknown) (unknown) lithotripsy. Given some ( units (unknown) date) strainers today will await unk nown) his urine and have him (unknown) (no (unknown) (unknown) loratadine 10 mg tablet 10 (units (unknown) date) mg PO DAILY 07/10/22 unknown) [History Confirmed 11/26/22] (unknown) (no (unknown) (unknown) lower pole fragments. (un its (unknown) date) unknown) (unknown) (no (unknown) (unknown) lower portion of the (uni ts (unknown) date) kidney a but no significant un known) large fragments. Patient (unknown) (no (unknown) (unknown) mL) IM ONCE #2 ea 06/19/19 (units (unknown) date) [Rx Confirmed 11/26/22] unknow n) (unknown) (no (unknown) (unknown) make of that. Did have (u nits (unknown) date) some hematuria but this is unk nown) resolved. He reports he is (unknown) (no (unknown) (unknown) marital status: ( units (unknown) date) unknown) (unknown) (no (unknown) (unknown) may occur. Occasional (un its (unknown) date) wrong-word or 'sound-alike' un known) substitutions may have (unknown) (no (unknown) (unknown) not caught any fragments (units (unknown) date) however the KUB that he unknow n) comes with today appears to (unknown) (no (unknown) (unknown) number of children: 3 (un its (unknown) date) unknown) (unknown) (no (unknown) (unknown) occupational status: other (units (unknown) date) unknown) (unknown) (no (unknown) (unknown) occurred due to the (unit s (unknown) date) inherent limitations of unknow n) voice recognition software. Please (unknown) (no (unknown) (unknown) omeprazole 20 mg (units (unknown) date) capsule,delayed release 40 unk nown) mg PO DAILY #90 caps 07/10/22 [Rx (unknown) (no (unknown) (unknown) participate and postural (units (unknown) date) maneuvers in the meantime unkn own) in an effort to clear the (unknown) (no (unknown) (unknown) passed a significant (uni ts (unknown) date) portion of the stone and at un known) the stone was well fragmented. (unknown) (no (unknown) (unknown) phenazopyridine 200 mg (u nits (unknown) date) tablet (Pyridium) 200 mg PO un known) TID PRN Bladder irritation (unknown) (no (unknown) (unknown) read the note carefully ( units (unknown) date) and recognize, using unknown) context, where these substitutions (unknown) (no (unknown) (unknown) return to clinic in (unit s (unknown) date) approximately 3 weeks with unk nown) a KUB. The KUB has been ordered. (unknown) (no (unknown) (unknown) second hand exposure: No (units (unknown) date) unknown) (unknown) (no (unknown) (unknown) show the stone well (unit s (unknown) date) fragmented there are few unkno wn) fragments I think in the mid to (unknown) (no (unknown) (unknown) software. Although every (units (unknown) date) effort is made to edit unknown ) content, business management consultant errors (unknown) (no (unknown) (unknown) states since the procedure (units (unknown) date) he has had a lot less pain unk nown) and the urinary bleeding (unknown) (no (unknown) (unknown) substance use type: does (units (unknown) date) not use unknown) (unknown) (no (unknown) (unknown) sulfamethoxazole [From (u nits (unknown) date) Bactrim] Allergy (Unknown, unk nown) Verified 11/26/22 13:49) (unknown) (no (unknown) (unknown) symptoms (units (unkno wn) date) unknown) (unknown) (no (unknown) (unknown) tabs 07/10/22 [Rx (units (unknown) date) Confirmed 11/26/22] unknown) (unknown) (no (unknown) (unknown) trimethoprim [From (units (unknown) date) Bactrim] Allergy (Unknown, unk nown) Verified 11/26/22 13:49) (unknown) (no (unknown) (unknown) unit (0.2 mL) SUBCUT HS #3 (units (unknown) date) vials 02/10/20 [Rx unknown) Confirmed 11/26/22] Result panel 21 (unknown) (no (unknown) (unknown) (no value) (units (unk nown) date) unknown) (unknown) (no (unknown) (unknown) #30 tabs 11/13/22 [Rx (un its (unknown) date) Confirmed 11/26/22] unknown) (unknown) (no (unknown) (unknown) (1) Kidney stone: (units (unknown) date) unknown) (unknown) (no (unknown) (unknown) (2) 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: unknown) (unknown) (no (unknown) (unknown) (3) BPH (benign prostatic (units (unknown) date) hyperplasia): unknown) (unknown) (no (unknown) (unknown) ADDENDUM (units (u nknown) date) unknown) (unknown) (no (unknown) (unknown) [id number] (units (unkno wn) date) unknown) (unknown) (no (unknown) (unknown) 11/26/22 1411 (units ( unknown) date) unknown) (unknown) (no (unknown) (unknown) 11/26/22 1525 (units ( unknown) date) unknown) (unknown) (no (unknown) (unknown) 11/26/22 15:25 (units (unknown) date) unknown) (unknown) (no (unknown) (unknown) 11/26/22 (units (unkno wn) date) unknown) (unknown) (no (unknown) (unknown) 11/26/22] (units (unkn own) date) unknown) (unknown) (no (unknown) (unknown) 01/31/21 [Rx Confirmed (u nits (unknown) date) 11/26/22] unknown) (unknown) (no (unknown) (unknown) 13:47 (units (unkno wn) date) unknown) (unknown) (no (unknown) (unknown) 15:25 (units (unkno wn) date) unknown) (unknown) (no (unknown) (unknown) 23 (units (unkno wn) date) unknown) (unknown) (no (unknown) (unknown) 5 (units (unkno wn) date) unknown) (unknown) (no (unknown) (unknown) 77 y/o male presenting (u nits (unknown) date) today for a post op follow unk nown) up and review of KUB. Patient (unknown) (no (unknown) (unknown) :25 (units (unkno wn) date) unknown) (unknown) (no (unknown) (unknown) Abnormal ultrasound of (u nits (unknown) date) prostate unknown) (unknown) (no (unknown) (unknown) [place] lancets - (units (unknown) date) Softclix #250 ea 11/18/20 unkn own) [Rx Confirmed 11/26/22] (unknown) (no (unknown) (unknown) Add'l Complaint: (units (unknown) date) unknown) (unknown) (no (unknown) (unknown) Addendum Documented By: ( units (unknown) date) Tanya Gutiérrez RN unknown) (unknown) (no (unknown) (unknown) Addendum Signed By: (unit s (unknown) date) unknown) (unknown) (no (unknown) (unknown) Age/Sex: 77 / M Date of ( units (unknown) date) Service: unknown) (unknown) (no (unknown) (unknown) Alcohol Prep Pads #250 ea (units (unknown) date) 11/18/20 [Rx Confirmed unknown ) 11/26/22] (unknown) (no (unknown) (unknown) Allergies (units (unkn own) date) unknown) (unknown) (no (unknown) (unknown) [place] [address] (unit s (unknown) date) unknown) (unknown) (no (unknown) (unknown) Assessment + Plan (units (unknown) date) unknown) (unknown) (no (unknown) (unknown) Assessment and plan: (uni ts (unknown) date) Patient doing well after unkno wn) lithotripsy. Appears to have (unknown) (no (unknown) (unknown) Asymptomatic microscopic (units (unknown) date) hematuria unknown) (unknown) (no (unknown) (unknown) Attending Dr: Maxx Roberson (units (unknown) date) unknown) (unknown) (no (unknown) (unknown) BMI 30.4 (units (unkno wn) date) unknown) (unknown) (no (unknown) (unknown) BP 158/82 H (units (un known) date) unknown) (unknown) (no (unknown) (unknown) BPH (benign prostatic (un its (unknown) date) hyperplasia) (Unknown) unknown ) (unknown) (no (unknown) (unknown) Blood Pressure Location Rt (units (unknown) date) radial unknown) (unknown) (no (unknown) (unknown) CKD (chronic kidney (unit s (unknown) date) disease) (Unknown) unknown) (unknown) (no (unknown) (unknown) Chief Complaint (units (unknown) date) unknown) (unknown) (no (unknown) (unknown) Chief Complaint: Left (un its (unknown) date) kidney stone (follow-up unknow n) extracorporeal shockwave (unknown) (no (unknown) (unknown) Co Q-10 11/13/22 [History (units (unknown) date) Confirmed 11/26/22] unknown) (unknown) (no (unknown) (unknown) Code(s): N40.0 - Benign ( units (unknown) date) prostatic hyperplasia unknown) without lower urinary tract (unknown) (no (unknown) (unknown) Code(s): (units (unkno wn) date) unknown) (unknown) (no (unknown) (unknown) Colon polyps (Unknown) (u nits (unknown) date) unknown) (unknown) (no (unknown) (unknown) Confirmed 11/26/22] (unit s (unknown) date) unknown) (unknown) (no (unknown) (unknown) : 1945 (units (unknown) date) Acct:[id number] unknown) (unknown) (no (unknown) (unknown) DOG DANDER Allergy (Mild, (units (unknown) date) Uncoded 11/26/22 13:49) unknow n) (unknown) (no (unknown) (unknown) Dept at . (u nits (unknown) date) unknown) (unknown) (no (unknown) (unknown) Details: (units (unkno wn) date) unknown) (unknown) (no (unknown) (unknown) Diabetes (Unknown) (units (unknown) date) unknown) (unknown) (no (unknown) (unknown) Diabetic Shoes + Insoles (units (unknown) date) #4 ea 08/28/22 [Rx unknown) Confirmed 11/26/22] (unknown) (no (unknown) (unknown) Documented By: Maxx Roberson (units (unknown) date) Rylee BROTHERS 11/26/22 1341 unknown) (unknown) (no (unknown) (unknown) Elevated PSA (units (u nknown) date) unknown) (unknown) (no (unknown) (unknown) Family History (Reviewed (units (unknown) date) 08/21/18 @ 15:25 by Greer unkno wn) Kimberley Flores MD) (unknown) (no (unknown) (unknown) Father Cancer (u nits (unknown) date) unknown) (unknown) (no (unknown) (unknown) GERD (gastroesophageal (u nits (unknown) date) reflux disease) (Unknown) unkn own) (unknown) (no (unknown) (unknown) Glucose: Test Strips #250 (units (unknown) date) ea 11/18/20 [Rx Confirmed unkn own) 11/26/22] (unknown) (no (unknown) (unknown) HPI (units (unkno wn) date) unknown) (unknown) (no (unknown) (unknown) He will try to leave us a (units (unknown) date) urine so that we can unknown) ascertain if there is occult (unknown) (no (unknown) (unknown) Hearing loss () ( units (unknown) date) unknown) (unknown) (no (unknown) (unknown) Height 5 ft 7 in (units (unknown) date) unknown) (unknown) (no (unknown) (unknown) History of (units (unk nown) date) esophagogastroduodenoscopy unk nown) (EGD) (08/2018) (unknown) (no (unknown) (unknown) History of kidney stones (units (unknown) date) unknown) (unknown) (no (unknown) (unknown) History of tonsillectomy (units (unknown) date) unknown) (unknown) (no (unknown) (unknown) Hypertension (Unknown) (u nits (unknown) date) unknown) (unknown) (no (unknown) (unknown) Hypothyroidism (Unknown) (units (unknown) date) unknown) (unknown) (no (unknown) (unknown) Insulin Aspart sliding (u nits (unknown) date) scale SUBCUT 10/27/19 unknown) [History Confirmed 11/26/22] (unknown) (no (unknown) (unknown) Intake Note: (units (u nknown) date) unknown) (unknown) (no (unknown) (unknown) Intake performed by: (uni ts (unknown) date) Tanya Gutiérrez unknown) (unknown) (no (unknown) (unknown) Intake (units (unkno wn) date) unknown) (unknown) (no (unknown) (unknown) Intake- Clincial Staff (u nits (unknown) date) unknown) (unknown) (no (unknown) (unknown) [facility] (units (unknown) date) unknown) (unknown) (no (unknown) (unknown) Kidney stone (units (u nknown) date) unknown) (unknown) (no (unknown) (unknown) Left renal stone (units (unknown) date) unknown) (unknown) (no (unknown) (unknown) Loc: [facility] (units (unkno wn) date) unknown) (unknown) (no (unknown) (unknown) Lower urinary tract (unit s (unknown) date) symptom presence: symptoms unk nown) absent Qualified (unknown) (no (unknown) (unknown) Medical History (Updated (units (unknown) date) 10/22/22 @ 13:43 by Mxax Mckee un known) MD Da) (unknown) (no (unknown) (unknown) Medications (units (un known) date) unknown) (unknown) (no (unknown) (unknown) Mother Cancer (u nits (unknown) date) unknown) (unknown) (no (unknown) (unknown) N20.0 - Calculus of kidney (units (unknown) date) unknown) (unknown) (no (unknown) (unknown) N40.0 - Benign prostatic (units (unknown) date) hyperplasia without lower unkn own) urinary tract symptoms (unknown) (no (unknown) (unknown) Neuropathy (Unknown) (uni ts (unknown) date) unknown) (unknown) (no (unknown) (unknown) Office Procedure (units (unknown) date) Documentation entered by unkno wn) Tanya Gutiérrez RN 11/26/22 15:25: (unknown) (no (unknown) (unknown) Orders (units (unkno wn) date) unknown) (unknown) (no (unknown) (unknown) Orders: (units (unkno wn) date) unknown) (unknown) (no (unknown) (unknown) Osteopenia (07/2016) (uni ts (unknown) date) unknown) (unknown) (no (unknown) (unknown) Oxygen Delivery Method (u nits (unknown) date) room air unknown) (unknown) (no (unknown) (unknown) PFSH (units (unkno wn) date) unknown) (unknown) (no (unknown) (unknown) POC Urine Dip Today N39.0 (units (unknown) date) - Urinary tract infection, unk nown) site not specified (unknown) (no (unknown) (unknown) Patient: Tyshawn Camara (units (unknown) date) MR#: [id number] unknown) (unknown) (no (unknown) (unknown) Penicillins Allergy (unit s (unknown) date) (Unknown, Verified 11/26/22 un known) 13:49) (unknown) (no (unknown) (unknown) Plan (units (unkno wn) date) unknown) (unknown) (no (unknown) (unknown) Position Sitting (units (unknown) date) unknown) (unknown) (no (unknown) (unknown) Previous occupational (un its (unknown) date) history: retired unknown) (unknown) (no (unknown) (unknown) Pulse 64 (units (unkno wn) date) unknown) (unknown) (no (unknown) (unknown) Pulse Oximetry (%) 96 (un its (unknown) date) unknown) (unknown) (no (unknown) (unknown) Pulse Source Monitor (uni ts (unknown) date) unknown) (unknown) (no (unknown) (unknown) QAC #30 mL 11/02/20 [Rx ( units (unknown) date) Confirmed 11/26/22] unknown) (unknown) (no (unknown) (unknown) Qualifiers: (units (un known) date) unknown) (unknown) (no (unknown) (unknown) Reason For Visit (units (unknown) date) unknown) (unknown) (no (unknown) (unknown) Relief) 1 spray intranasal (units (unknown) date) QDAY ##3 02/14/21 [Rx unknown) Confirmed 11/26/22] (unknown) (no (unknown) (unknown) Results (units (unkno wn) date) unknown) (unknown) (no (unknown) (unknown) 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, history of elevated unk nown) PSA, benign prostatic (unknown) (no (unknown) (unknown) Secondhand smoke exposure (units (unknown) date) unknown) (unknown) (no (unknown) (unknown) Signed By: <Electronically (units (unknown) date) signed by Maxx Roberson MD> un known) (unknown) (no (unknown) (unknown) Signed with Samantha (unit s (unknown) date) unknown) (unknown) (no (unknown) (unknown) Smoking Status: Never (un its (unknown) date) smoker unknown) (unknown) (no (unknown) (unknown) Social History (Updated ( units (unknown) date) 08/20/22 @ 12:32 by Valentina puckett) SHEA Lopez) (unknown) (no (unknown) (unknown) Status: Acute (units ( unknown) date) unknown) (unknown) (no (unknown) (unknown) Status: Chronic (units (unknown) date) unknown) (unknown) (no (unknown) (unknown) Stroke (Unknown) (units (unknown) date) unknown) (unknown) (no (unknown) (unknown) Surgical History (Updated (units (unknown) date) 11/09/22 @ 11:34 by Abril Robin un known) SHEA Churchill) (unknown) (no (unknown) (unknown) This 77-year-old male (un its (unknown) date) returns to urology clinic unkn own) in follow-up of his recent left (unknown) (no (unknown) (unknown) This note may have been ( units (unknown) date) all or partially generated akmilla puckett) using voice recognition (unknown) (no (unknown) (unknown) Tobacco Status (units (unknown) date) unknown) (unknown) (no (unknown) (unknown) Type(s) of exercise: none (units (unknown) date) unknown) (unknown) (no (unknown) (unknown) Urine Appearance Clear (u nits (unknown) date) Last Edit by Tanya unknown) SHEA Gutiérrez on 11/26/22 15:25 (unknown) (no (unknown) (unknown) Urine Bilirubin Negative (units (unknown) date) Last Edit by Tanya unknown) SHEA Gutiérrez on 11/26/22 15:25 (unknown) (no (unknown) (unknown) Urine Blood 2+ 80 Jeffry/uL (units (unknown) date) Last Edit by Tanya unknown) SHEA Gutiérrez on 11/26/22 15:25 (unknown) (no (unknown) (unknown) Urine Color Yellow Last ( units (unknown) date) Edit by Tanya Gutiérrez RN un known) on 11/26/22 15:25 (unknown) (no (unknown) (unknown) Urine Dipstick (units (unknown) date) unknown) (unknown) (no (unknown) (unknown) Urine Glucose Negative (u nits (unknown) date) mg/dL Last Edit by Tanya jasmine known) SHEA Gutiérrez on 11/26/22 15 (unknown) (no (unknown) (unknown) Urine Ketones Negative (u nits (unknown) date) Last Edit by Tanya unknown) SHEA Gutiérrez on 11/26/22 15:25 (unknown) (no (unknown) (unknown) Urine Leukocyte Esterase (units (unknown) date) +- 15 Yifan/uL Last Edit by unkn own) Tanya Gutiérrez RN on (unknown) (no (unknown) (unknown) Urine Nitrate Negative (u nits (unknown) date) Last Edit by Tanya unknown) SHEA Gutiérrez on 11/26/22 15:25 (unknown) (no (unknown) (unknown) Urine Protein +- 15 mg/dL (units (unknown) date) Last Edit by Tanya unknown) SHEA Gutiérrez on 11/26/22 15:2 (unknown) (no (unknown) (unknown) Urine Specific [place] (u nits (unknown) date) 1.01 Last Edit by Tanya jasminek nown) SHEA Gutiérrez on 11/26/22 15 (unknown) (no (unknown) (unknown) Urine Urobilinogen - 0.2 (units (unknown) date) mg/dL Last Edit by Tanya jasmine known) SHEA Gutiérrez on (unknown) (no (unknown) (unknown) Urine pH 6.0 Last Edit by (units (unknown) date) Tanya Gutiérrez RN on unknown ) 11/26/22 15:25 (unknown) (no (unknown) (unknown) Urology Office Visit (uni ts (unknown) date) unknown) (unknown) (no (unknown) (unknown) Visit Reasons: PO w/KUB ( units (unknown) date) unknown) (unknown) (no (unknown) (unknown) Vitals (units (unkno wn) date) unknown) (unknown) (no (unknown) (unknown) Weight 194 lb (units ( unknown) date) unknown) (unknown) (no (unknown) (unknown) Will await his urine have (units (unknown) date) him return to clinic in 2-3 un known) weeks with a KUB have him (unknown) (no (unknown) (unknown) XR KUB 2 Weeks N20.0 - (u nits (unknown) date) Calculus of kidney unknown) (unknown) (no (unknown) (unknown) Z96.0 - Presence of (unit s (unknown) date) urogenital implants unknown) (unknown) (no (unknown) (unknown) [Rx Confirmed 11/26/22] ( units (unknown) date) unknown) (unknown) (no (unknown) (unknown) alcohol intake: current ( units (unknown) date) unknown) (unknown) (no (unknown) (unknown) alendronate 35 mg tablet (units (unknown) date) 35 mg PO Q WEEK #12 tabs unkno wn) 11/18/20 [Rx Confirmed (unknown) (no (unknown) (unknown) alfuzosin 10 mg (units (unknown) date) tablet,extended release 24 unk nown) hr 10 mg PO QDAY #90 tabs 08/19/20 (unknown) (no (unknown) (unknown) amlodipine 10 mg tablet 10 (units (unknown) date) mg PO Q DAY #90 tabs unknown) 08/19/20 [Rx Confirmed 11/26/22] (unknown) (no (unknown) (unknown) atenolol 100 mg tablet 100 (units (unknown) date) mg PO Q DAY #90 tabs unknown) 08/19/20 [Rx Confirmed 11/26/22] (unknown) (no (unknown) (unknown) atorvastatin 20 mg tablet (units (unknown) date) (Lipitor) 20 mg PO HS #90 unkn own) tabs 08/19/20 [Rx Confirmed (unknown) (no (unknown) (unknown) body aches at move from ( units (unknown) date) his shoulders down to his unkn own) thighs not quite sure what to (unknown) (no (unknown) (unknown) caffeine: Yes (units ( unknown) date) unknown) (unknown) (no (unknown) (unknown) ciprofloxacin Allergy (un its (unknown) date) (Unknown, Verified 11/26/22 un known) 13:49) (unknown) (no (unknown) (unknown) denies dysuria, frequency, (units (unknown) date) urgency, sign or symptom of un known) urinary tract infection. (unknown) (no (unknown) (unknown) epinephrine 0.3 mg/0.3 mL (units (unknown) date) injection, auto-injector unkno wn) (EpiPen 2-Donte) 0.3 mg (0.3 (unknown) (no (unknown) (unknown) extracorporeal shockwave (units (unknown) date) lithotripsy. He reports unknow n) that afterward he had some (unknown) (no (unknown) (unknown) facilitate mobilizing the (units (unknown) date) lower pole fragments. unknown) Overall recovering well after (unknown) (no (unknown) (unknown) fluticasone propionate 50 (units (unknown) date) mcg/actuation nasal unknown) spray,suspension (Flonase Allergy (unknown) (no (unknown) (unknown) has stopped. (units (u nknown) date) unknown) (unknown) (no (unknown) (unknown) have occurred. If there ( units (unknown) date) are any questions, please unkn own) contact the Medical Records (unknown) (no (unknown) (unknown) hematuria. (units (unk nown) date) unknown) (unknown) (no (unknown) (unknown) household members: spouse (units (unknown) date) unknown) (unknown) (no (unknown) (unknown) hyperplasia, lower urinary (units (unknown) date) tract symptoms, history of unk nown) asymptomatic microscopic (unknown) (no (unknown) (unknown) infection. Directed him to (units (unknown) date) start some procedural unknown) maneuvers to see if he can not (unknown) (no (unknown) (unknown) insulin aspart U-100 100 (units (unknown) date) unit/mL subcutaneous unknown) solution 25 unit (0.25 mL) SUBCUT (unknown) (no (unknown) (unknown) insulin glargine 100 (uni ts (unknown) date) unit/mL subcutaneous unknown) solution (Lantus U-100 Insulin) 20 (unknown) (no (unknown) (unknown) insulin syringe-needle (u nits (unknown) date) U-100 1 mL 29 gauge x 1/2' unk nown) (Advocate Syringes) #100 ea (unknown) (no (unknown) (unknown) isosorbide mononitrate 30 (units (unknown) date) mg tablet,extended release unk nown) 24 hr 60 mg PO DAILY #90 (unknown) (no (unknown) (unknown) levothyroxine 112 mcg (un its (unknown) date) tablet 112 mcg PO QAM #90 unkn own) tabs 02/04/20 [Rx Confirmed (unknown) (no (unknown) (unknown) lithotripsy) (units (u nknown) date) unknown) (unknown) (no (unknown) (unknown) lithotripsy. Given some ( units (unknown) date) strainers today will await unk nown) his urine and have him (unknown) (no (unknown) (unknown) loratadine 10 mg tablet 10 (units (unknown) date) mg PO DAILY 07/10/22 unknown) [History Confirmed 11/26/22] (unknown) (no (unknown) (unknown) lower pole fragments. (un its (unknown) date) unknown) (unknown) (no (unknown) (unknown) lower portion of the (uni ts (unknown) date) kidney a but no significant un known) large fragments. Patient (unknown) (no (unknown) (unknown) mL) IM ONCE #2 ea 06/19/19 (units (unknown) date) [Rx Confirmed 11/26/22] unknow n) (unknown) (no (unknown) (unknown) make of that. Did have (u nits (unknown) date) some hematuria but this is unk nown) resolved. He reports he is (unknown) (no (unknown) (unknown) marital status: ( units (unknown) date) unknown) (unknown) (no (unknown) (unknown) may occur. Occasional (un its (unknown) date) wrong-word or 'sound-alike' un known) substitutions may have (unknown) (no (unknown) (unknown) not caught any fragments (units (unknown) date) however the KUB that he unknow n) comes with today appears to (unknown) (no (unknown) (unknown) number of children: 3 (un its (unknown) date) unknown) (unknown) (no (unknown) (unknown) occupational status: other (units (unknown) date) unknown) (unknown) (no (unknown) (unknown) occurred due to the (unit s (unknown) date) inherent limitations of unknow n) voice recognition software. Please (unknown) (no (unknown) (unknown) omeprazole 20 mg (units (unknown) date) capsule,delayed release 40 unk nown) mg PO DAILY #90 caps 07/10/22 [Rx (unknown) (no (unknown) (unknown) participate and postural (units (unknown) date) maneuvers in the meantime unkn own) in an effort to clear the (unknown) (no (unknown) (unknown) passed a significant (uni ts (unknown) date) portion of the stone and at un known) the stone was well fragmented. (unknown) (no (unknown) (unknown) phenazopyridine 200 mg (u nits (unknown) date) tablet (Pyridium) 200 mg PO un known) TID PRN Bladder irritation (unknown) (no (unknown) (unknown) read the note carefully ( units (unknown) date) and recognize, using unknown) context, where these substitutions (unknown) (no (unknown) (unknown) return to clinic in (unit s (unknown) date) approximately 3 weeks with unk nown) a KUB. The KUB has been ordered. (unknown) (no (unknown) (unknown) second hand exposure: No (units (unknown) date) unknown) (unknown) (no (unknown) (unknown) show the stone well (unit s (unknown) date) fragmented there are few unkno wn) fragments I think in the mid to (unknown) (no (unknown) (unknown) software. Although every (units (unknown) date) effort is made to edit unknown ) content, business management consultant errors (unknown) (no (unknown) (unknown) states since the procedure (units (unknown) date) he has had a lot less pain unk nown) and the urinary bleeding (unknown) (no (unknown) (unknown) substance use type: does (units (unknown) date) not use unknown) (unknown) (no (unknown) (unknown) sulfamethoxazole [From (u nits (unknown) date) Bactrim] Allergy (Unknown, unk nown) Verified 11/26/22 13:49) (unknown) (no (unknown) (unknown) symptoms (units (unkno wn) date) unknown) (unknown) (no (unknown) (unknown) tabs 07/10/22 [Rx (units (unknown) date) Confirmed 11/26/22] unknown) (unknown) (no (unknown) (unknown) trimethoprim [From (units (unknown) date) Bactrim] Allergy (Unknown, unk nown) Verified 11/26/22 13:49) (unknown) (no (unknown) (unknown) unit (0.2 mL) SUBCUT HS #3 (units (unknown) date) vials 02/10/20 [Rx unknown) Confirmed 11/26/22] Result panel 22 (unknown) (no date) (unknown) (unknown) No growth. (units (un known) unknown) Result panel 23 (unknown) (no date) (unknown) (unknown) No growth. (units (un known) unknown) Result panel 24 (unknown) (no date) (unknown) (unknown) (no value) (units (un known) unknown) (unknown) (no date) (unknown) (unknown) [id number] (units (unk nown) unknown) (unknown) (no date) (unknown) (unknown) 12/12/22 (units (unkn own) unknown) (unknown) (no date) (unknown) (unknown) [address] (units (unk nown) [address] unknown) (unknown) (no date) (unknown) (unknown) 13:57. (units (unkn own) unknown) (unknown) (no date) (unknown) (unknown) Accession (units (unk nown) Number: unknown) [id number] (unknown) (no date) (unknown) (unknown) Age/Sex: 77 / (units (unknown) M Date of unknown) Service: (unknown) (no date) (unknown) (unknown) JERMAINE Edward (units (unknown) [id number] unknown) (unknown) (no date) (unknown) (unknown) Approved by: (units ( unknown) brijesh Brito) Marian on 12/12/2022 at 12:14 (unknown) (no date) (unknown) (unknown) Bones: No (units (unk nown) suspicious bony unknown) lesions. (unknown) (no date) (unknown) (unknown) Bowel: Bowel (units ( unknown) gas pattern is unknown) normal. (unknown) (no date) (unknown) (unknown) COMPARISON: (units (u nknown) [facility] unknown) Hospital, CT, CT ABDOMEN PELVIS WO/W CON, 10/16/2022, 13:35. (unknown) (no date) (unknown) (unknown) : (units (unkn own) 1945 unknown) Acct:[id number] (unknown) (no date) (unknown) (unknown) FINDINGS: (units (unk nown) unknown) (unknown) (no date) (unknown) (unknown) [facility], CR, (units (unknown) XR KUB, unknown) 11/22/2022, 12:50. [facility], , XR KUB, 10/22/2022, (unknown) (no date) (unknown) (unknown) IMPRESSION: (units (u nknown) Stable left unknown) ureteral stent. Left renal calculi appear less (unknown) (no date) (unknown) (unknown) INDICATIONS: (units ( unknown) Kidney stone unknown) (unknown) (no date) (unknown) (unknown) [facility] (unkn own[facility] unknown) (unknown) (no date) (unknown) (unknown) [facility] (units (unkn own) unknown) (unknown) (no date) (unknown) (unknown) Loc: RAD (units (unkn own) unknown) (unknown) (no date) (unknown) (unknown) Ordering (units (unkn own) Provider: unknown) Maxx Roberson MD (unknown) (no date) (unknown) (unknown) PROCEDURE: XR (units (unknown) KUB unknown) (unknown) (no date) (unknown) (unknown) Patient: (units (unkn own) Tyshawn Camara unknown) R MR#: [id number] (unknown) (no date) (unknown) (unknown) Procedure: XR (units (unknown) KUB unknown) (unknown) (no date) (unknown) (unknown) Signed (units (unkn own) unknown) (unknown) (no date) (unknown) (unknown) Soft tissues: (units (unknown) Previously seen unknown) left renal calculi appear less prominent, (unknown) (no date) (unknown) (unknown) Surgical (units (unkn own) changes and unknown) devices: Stable appearance of a left ureteral stent. (unknown) (no date) (unknown) (unknown) TECHNIQUE: One (units (unknown) view of the unknown) abdomen acquired. (unknown) (no date) (unknown) (unknown) XRay Report (units (u nknown) unknown) (unknown) (no date) (unknown) (unknown) although (units (unkn own) unknown) (unknown) (no date) (unknown) (unknown) prominent. (units (un known) unknown) (unknown) (no date) (unknown) (unknown) residual small (units (unknown) calculi are unknown) suspected. No calculus is seen along the course of (unknown) (no date) (unknown) (unknown) the left (units (unkn own) unknown) (unknown) (no date) (unknown) (unknown) ureter. (units (unkn own) Visualized unknown) solid organ contours appear normal in size. Result panel 25 (unknown) (no (unknown) (unknown) (no value) (units (unk nown) date) unknown) (unknown) (no (unknown) (unknown) #30 tabs 11/13/22 [Rx (un its (unknown) date) Confirmed 12/13/22] unknown) (unknown) (no (unknown) (unknown) [id number] (units (unkno wn) date) unknown) (unknown) (no (unknown) (unknown) 12/13/22 (units (unkno wn) date) unknown) (unknown) (no (unknown) (unknown) 12/13/22] (units (unkn own) date) unknown) (unknown) (no (unknown) (unknown) 01/31/21 [Rx Confirmed (u nits (unknown) date) 12/13/22] unknown) (unknown) (no (unknown) (unknown) 77 yo m here for KUB (uni ts (unknown) date) review. unknown) (unknown) (no (unknown) (unknown) Abnormal ultrasound of (u nits (unknown) date) prostate unknown) (unknown) (no (unknown) (unknown) Iza Naranjo lancets - (units (unknown) date) Softclix #250 ea 11/18/20 unkn own) [Rx Confirmed 12/13/22] (unknown) (no (unknown) (unknown) Age/Sex: 77 / M Date of ( units (unknown) date) Service: unknown) (unknown) (no (unknown) (unknown) Alcohol Prep Pads #250 ea (units (unknown) date) 11/18/20 [Rx Confirmed unknown ) 12/13/22] (unknown) (no (unknown) (unknown) Allergies (units (unkn own) date) unknown) (unknown) (no (unknown) (unknown) [place] [address] (unit s (unknown) date) unknown) (unknown) (no (unknown) (unknown) Asymptomatic microscopic (units (unknown) date) hematuria unknown) (unknown) (no (unknown) (unknown) Attending Dr: Maxx [place] (units (unknown) date) unknown) (unknown) (no (unknown) (unknown) BPH (benign prostatic (un its (unknown) date) hyperplasia) (Unknown) unknown ) (unknown) (no (unknown) (unknown) CKD (chronic kidney (unit s (unknown) date) disease) (Unknown) unknown) (unknown) (no (unknown) (unknown) Co Q-10 11/13/22 [History (units (unknown) date) Confirmed 12/13/22] unknown) (unknown) (no (unknown) (unknown) Colon polyps (Unknown) (u nits (unknown) date) unknown) (unknown) (no (unknown) (unknown) Confirmed 12/13/22] (unit s (unknown) date) unknown) (unknown) (no (unknown) (unknown) : 1945 (units (unknown) date) Acct:[id number] unknown) (unknown) (no (unknown) (unknown) DOG DANDER Allergy (Mild, (units (unknown) date) Uncoded 11/26/22 13:49) unknow n) (unknown) (no (unknown) (unknown) Dept at . (u nits (unknown) date) unknown) (unknown) (no (unknown) (unknown) Diabetes (Unknown) (units (unknown) date) unknown) (unknown) (no (unknown) (unknown) Diabetic Shoes + Insoles (units (unknown) date) #4 ea 08/28/22 [Rx unknown) Confirmed 12/13/22] (unknown) (no (unknown) (unknown) Documented By: Maxx Roberson (units (unknown) date) Rylee BROTHERS 12/13/22 1420 unknown) (unknown) (no (unknown) (unknown) Draft (units (unkno wn) date) unknown) (unknown) (no (unknown) (unknown) Elevated PSA (units (u nknown) date) unknown) (unknown) (no (unknown) (unknown) Family History (Reviewed (units (unknown) date) 08/21/18 @ 15:25 by Greer unknlenka wn) Kimberley Flores MD) (unknown) (no (unknown) (unknown) Father Cancer (u nits (unknown) date) unknown) (unknown) (no (unknown) (unknown) GERD (gastroesophageal (u nits (unknown) date) reflux disease) (Unknown) unkn own) (unknown) (no (unknown) (unknown) Glucose: Test Strips #250 (units (unknown) date) ea 11/18/20 [Rx Confirmed unkn own) 12/13/22] (unknown) (no (unknown) (unknown) Hearing loss () ( units (unknown) date) unknown) (unknown) (no (unknown) (unknown) History of (units (unk nown) date) esophagogastroduodenoscopy unk nown) (EGD) (08/2018) (unknown) (no (unknown) (unknown) History of kidney stones (units (unknown) date) unknown) (unknown) (no (unknown) (unknown) History of tonsillectomy (units (unknown) date) unknown) (unknown) (no (unknown) (unknown) Hypertension (Unknown) (u nits (unknown) date) unknown) (unknown) (no (unknown) (unknown) Hypothyroidism (Unknown) (units (unknown) date) unknown) (unknown) (no (unknown) (unknown) Insulin Aspart sliding (u nits (unknown) date) scale SUBCUT 10/27/19 unknown) [History Confirmed 12/13/22] (unknown) (no (unknown) (unknown) Intake Note: (units (u nknown) date) unknown) (unknown) (no (unknown) (unknown) Intake performed by: (uni ts (unknown) date) Lj,Brenda M unknown) (unknown) (no (unknown) (unknown) Intake (units (unkno wn) date) unknown) (unknown) (no (unknown) (unknown) Intake- Clincial Staff (u nits (unknown) date) unknown) (unknown) (no (unknown) (unknown) [facility] (units (unknown) date) unknown) (unknown) (no (unknown) (unknown) Kidney stone (units (u nknown) date) unknown) (unknown) (no (unknown) (unknown) Left renal stone (units (unknown) date) unknown) (unknown) (no (unknown) (unknown) Loc: [facility] (units (unkno wn) date) unknown) (unknown) (no (unknown) (unknown) Medical History (Updated (units (unknown) date) 10/22/22 @ 13:43 by Maxx Mckee un known) MD Da) (unknown) (no (unknown) (unknown) Medications (units (un known) date) unknown) (unknown) (no (unknown) (unknown) Mother Cancer (u nits (unknown) date) unknown) (unknown) (no (unknown) (unknown) Neuropathy (Unknown) (uni ts (unknown) date) unknown) (unknown) (no (unknown) (unknown) Osteopenia (07/2016) (uni ts (unknown) date) unknown) (unknown) (no (unknown) (unknown) PFSH (units (unkno wn) date) unknown) (unknown) (no (unknown) (unknown) Patient: Tyshawn Camara (units (unknown) date) MR#: [id number] unknown) (unknown) (no (unknown) (unknown) Penicillins Allergy (unit s (unknown) date) (Unknown, Verified 11/26/22 un known) 13:49) (unknown) (no (unknown) (unknown) Previous occupational (un its (unknown) date) history: retired unknown) (unknown) (no (unknown) (unknown) QAC #30 mL 11/02/20 [Rx ( units (unknown) date) Confirmed 12/13/22] unknown) (unknown) (no (unknown) (unknown) Reason For Visit (units (unknown) date) unknown) (unknown) (no (unknown) (unknown) Relief) 1 spray intranasal (units (unknown) date) QDAY ##3 02/14/21 [Rx unknown) Confirmed 12/13/22] (unknown) (no (unknown) (unknown) Secondhand smoke exposure (units (unknown) date) unknown) (unknown) (no (unknown) (unknown) Signed By: (units (unk nown) date) unknown) (unknown) (no (unknown) (unknown) Smoking Status: Never (un its (unknown) date) smoker unknown) (unknown) (no (unknown) (unknown) Social History (Updated ( units (unknown) date) 08/20/22 @ 12:32 by Valentina puckett) SHEA Lopez) (unknown) (no (unknown) (unknown) Stroke (Unknown) (units (unknown) date) unknown) (unknown) (no (unknown) (unknown) Surgical History (Updated (units (unknown) date) 11/09/22 @ 11:34 by Abril bar) SHEA Churchill) (unknown) (no (unknown) (unknown) This note may have been ( units (unknown) date) all or partially generated kenroyk emiln) using voice recognition (unknown) (no (unknown) (unknown) Tobacco Status (units (unknown) date) unknown) (unknown) (no (unknown) (unknown) Type(s) of exercise: none (units (unknown) date) unknown) (unknown) (no (unknown) (unknown) Urology Office Visit (uni ts (unknown) date) unknown) (unknown) (no (unknown) (unknown) Visit Reasons: 2-3WK, KUB (units (unknown) date) review unknown) (unknown) (no (unknown) (unknown) [Rx Confirmed 12/13/22] ( units (unknown) date) unknown) (unknown) (no (unknown) (unknown) alcohol intake: current ( units (unknown) date) unknown) (unknown) (no (unknown) (unknown) alendronate 35 mg tablet (units (unknown) date) 35 mg PO Q WEEK #12 tabs unkno wn) 11/18/20 [Rx Confirmed (unknown) (no (unknown) (unknown) alfuzosin 10 mg (units (unknown) date) tablet,extended release 24 kenroyk nown) hr 10 mg PO QDAY #90 tabs 08/19/20 (unknown) (no (unknown) (unknown) amlodipine 10 mg tablet 10 (units (unknown) date) mg PO Q DAY #90 tabs unknown) 08/19/20 [Rx Confirmed 12/13/22] (unknown) (no (unknown) (unknown) atenolol 100 mg tablet 100 (units (unknown) date) mg PO Q DAY #90 tabs unknown) 08/19/20 [Rx Confirmed 12/13/22] (unknown) (no (unknown) (unknown) atorvastatin 20 mg tablet (units (unknown) date) (Lipitor) 20 mg PO HS #90 unkn own) tabs 08/19/20 [Rx Confirmed (unknown) (no (unknown) (unknown) caffeine: Yes (units ( unknown) date) unknown) (unknown) (no (unknown) (unknown) ciprofloxacin Allergy (un its (unknown) date) (Unknown, Verified 11/26/22 un known) 13:49) (unknown) (no (unknown) (unknown) epinephrine 0.3 mg/0.3 mL (units (unknown) date) injection, auto-injector unkno wn) (EpiPen 2-Donte) 0.3 mg (0.3 (unknown) (no (unknown) (unknown) fluticasone propionate 50 (units (unknown) date) mcg/actuation nasal unknown) spray,suspension (Flonase Allergy (unknown) (no (unknown) (unknown) have occurred. If there ( units (unknown) date) are any questions, please unkn own) contact the Medical Records (unknown) (no (unknown) (unknown) household members: spouse (units (unknown) date) unknown) (unknown) (no (unknown) (unknown) insulin aspart U-100 100 (units (unknown) date) unit/mL subcutaneous unknown) solution 25 unit (0.25 mL) SUBCUT (unknown) (no (unknown) (unknown) insulin glargine 100 (uni ts (unknown) date) unit/mL subcutaneous unknown) solution (Lantus U-100 Insulin) 20 (unknown) (no (unknown) (unknown) insulin syringe-needle (u nits (unknown) date) U-100 1 mL 29 gauge x 1/2' unk nown) (Advocate Syringes) #100 ea (unknown) (no (unknown) (unknown) isosorbide mononitrate 30 (units (unknown) date) mg tablet,extended release unk nown) 24 hr 60 mg PO DAILY #90 (unknown) (no (unknown) (unknown) levothyroxine 112 mcg (un its (unknown) date) tablet 112 mcg PO QAM #90 unkn own) tabs 02/04/20 [Rx Confirmed (unknown) (no (unknown) (unknown) loratadine 10 mg tablet 10 (units (unknown) date) mg PO DAILY 07/10/22 unknown) [History Confirmed 12/13/22] (unknown) (no (unknown) (unknown) mL) IM ONCE #2 ea 06/19/19 (units (unknown) date) [Rx Confirmed 12/13/22] unknow n) (unknown) (no (unknown) (unknown) marital status: ( units (unknown) date) unknown) (unknown) (no (unknown) (unknown) may occur. Occasional (un its (unknown) date) wrong-word or 'sound-alike' un known) substitutions may have (unknown) (no (unknown) (unknown) number of children: 3 (un its (unknown) date) unknown) (unknown) (no (unknown) (unknown) occupational status: other (units (unknown) date) unknown) (unknown) (no (unknown) (unknown) occurred due to the (unit s (unknown) date) inherent limitations of unknow n) voice recognition software. Please (unknown) (no (unknown) (unknown) omeprazole 20 mg (units (unknown) date) capsule,delayed release 40 unk nown) mg PO DAILY #90 caps 07/10/22 [Rx (unknown) (no (unknown) (unknown) phenazopyridine 200 mg (u nits (unknown) date) tablet (Pyridium) 200 mg PO un known) TID PRN Bladder irritation (unknown) (no (unknown) (unknown) read the note carefully ( units (unknown) date) and recognize, using unknown) context, where these substitutions (unknown) (no (unknown) (unknown) second hand exposure: No (units (unknown) date) unknown) (unknown) (no (unknown) (unknown) software. Although every (units (unknown) date) effort is made to edit unknown ) content, business management consultant errors (unknown) (no (unknown) (unknown) substance use type: does (units (unknown) date) not use unknown) (unknown) (no (unknown) (unknown) sulfamethoxazole [From (u nits (unknown) date) Bactrim] Allergy (Unknown, unk nown) Verified 11/26/22 13:49) (unknown) (no (unknown) (unknown) tabs 07/10/22 [Rx (units (unknown) date) Confirmed 12/13/22] unknown) (unknown) (no (unknown) (unknown) trimethoprim [From (units (unknown) date) Bactrim] Allergy (Unknown, unk nown) Verified 11/26/22 13:49) (unknown) (no (unknown) (unknown) unit (0.2 mL) SUBCUT HS #3 (units (unknown) date) vials 02/10/20 [Rx unknown) Confirmed 12/13/22] Result panel 26 (unknown) (no (unknown) (unknown) (no value) (units (unk nown) date) unknown) (unknown) (no (unknown) (unknown) #30 tabs 11/13/22 [Rx (un its (unknown) date) Confirmed 12/13/22] unknown) (unknown) (no (unknown) (unknown) [id number] (units (unkno wn) date) unknown) (unknown) (no (unknown) (unknown) 12/13/22 (units (unkno wn) date) unknown) (unknown) (no (unknown) (unknown) 12/13/22] (units (unkn own) date) unknown) (unknown) (no (unknown) (unknown) 01/31/21 [Rx Confirmed (u nits (unknown) date) 12/13/22] unknown) (unknown) (no (unknown) (unknown) 14:36 (units (unkno wn) date) unknown) (unknown) (no (unknown) (unknown) 77 yo m here for KUB (uni ts (unknown) date) review. unknown) (unknown) (no (unknown) (unknown) Abnormal ultrasound of (u nits (unknown) date) prostate unknown) (unknown) (no (unknown) (unknown) Accuchek Marcella lancets - (units (unknown) date) Softclix #250 ea 11/18/20 unkn own) [Rx Confirmed 12/13/22] (unknown) (no (unknown) (unknown) Age/Sex: 77 / M Date of ( units (unknown) date) Service: unknown) (unknown) (no (unknown) (unknown) Alcohol Prep Pads #250 ea (units (unknown) date) 11/18/20 [Rx Confirmed unknown ) 12/13/22] (unknown) (no (unknown) (unknown) Allergies (units (unkn own) date) unknown) (unknown) (no (unknown) (unknown) [place] [id number] (unit s (unknown) date) unknown) (unknown) (no (unknown) (unknown) Asymptomatic microscopic (units (unknown) date) hematuria unknown) (unknown) (no (unknown) (unknown) Attending Dr: Maxx Roberson (units (unknown) date) unknown) (unknown) (no (unknown) (unknown) BMI 31.3 (units (unkno wn) date) unknown) (unknown) (no (unknown) (unknown) BP 165/72 H (units (un known) date) unknown) (unknown) (no (unknown) (unknown) BPH (benign prostatic (un its (unknown) date) hyperplasia) (Unknown) unknown ) (unknown) (no (unknown) (unknown) Blood Pressure Location Rt (units (unknown) date) brachial unknown) (unknown) (no (unknown) (unknown) CKD (chronic kidney (unit s (unknown) date) disease) (Unknown) unknown) (unknown) (no (unknown) (unknown) Co Q-10 11/13/22 [History (units (unknown) date) Confirmed 12/13/22] unknown) (unknown) (no (unknown) (unknown) Colon polyps (Unknown) (u nits (unknown) date) unknown) (unknown) (no (unknown) (unknown) Confirmed 12/13/22] (unit s (unknown) date) unknown) (unknown) (no (unknown) (unknown) : 1945 (units (unknown) date) Acct:[id number] unknown) (unknown) (no (unknown) (unknown) DOG DANDER Allergy (Mild, (units (unknown) date) Uncoded 12/13/22 14:36) unknow n) (unknown) (no (unknown) (unknown) Dept at . (u nits (unknown) date) unknown) (unknown) (no (unknown) (unknown) Diabetes (Unknown) (units (unknown) date) unknown) (unknown) (no (unknown) (unknown) Diabetic Shoes + Insoles (units (unknown) date) #4 ea 08/28/22 [Rx unknown) Confirmed 12/13/22] (unknown) (no (unknown) (unknown) Documented By: Maxx Roberson (units (unknown) date) Rylee BROTHERS 12/13/22 1420 unknown) (unknown) (no (unknown) (unknown) Draft (units (unkno wn) date) unknown) (unknown) (no (unknown) (unknown) Elevated PSA (units (u nknown) date) unknown) (unknown) (no (unknown) (unknown) Family History (Reviewed (units (unknown) date) 08/21/18 @ 15:25 by Greer unkno wn) Kimberley Flores MD) (unknown) (no (unknown) (unknown) Father Cancer (u nits (unknown) date) unknown) (unknown) (no (unknown) (unknown) GERD (gastroesophageal (u nits (unknown) date) reflux disease) (Unknown) unkn own) (unknown) (no (unknown) (unknown) Glucose: Test Strips #250 (units (unknown) date) ea 11/18/20 [Rx Confirmed unkn own) 12/13/22] (unknown) (no (unknown) (unknown) Hearing loss () ( units (unknown) date) unknown) (unknown) (no (unknown) (unknown) Height 5 ft 7 in (units (unknown) date) unknown) (unknown) (no (unknown) (unknown) History of (units (unk nown) date) esophagogastroduodenoscopy unk nown) (EGD) (08/2018) (unknown) (no (unknown) (unknown) History of kidney stones (units (unknown) date) unknown) (unknown) (no (unknown) (unknown) History of tonsillectomy (units (unknown) date) unknown) (unknown) (no (unknown) (unknown) Hypertension (Unknown) (u nits (unknown) date) unknown) (unknown) (no (unknown) (unknown) Hypothyroidism (Unknown) (units (unknown) date) unknown) (unknown) (no (unknown) (unknown) Insulin Aspart sliding (u nits (unknown) date) scale SUBCUT 10/27/19 unknown) [History Confirmed 12/13/22] (unknown) (no (unknown) (unknown) Intake Note: (units (u nknown) date) unknown) (unknown) (no (unknown) (unknown) Intake performed by: (uni ts (unknown) date) Brenda Calhoun unknown) (unknown) (no (unknown) (unknown) Intake (units (unkno wn) date) unknown) (unknown) (no (unknown) (unknown) Intake- Clincial Staff (u nits (unknown) date) unknown) (unknown) (no (unknown) (unknown) [facility] (units (unknown) date) unknown) (unknown) (no (unknown) (unknown) Kidney stone (units (u nknown) date) unknown) (unknown) (no (unknown) (unknown) Left renal stone (units (unknown) date) unknown) (unknown) (no (unknown) (unknown) Loc: [facility] (units (unkno wn) date) unknown) (unknown) (no (unknown) (unknown) Medical History (Updated (units (unknown) date) 10/22/22 @ 13:43 by Maxx Mckee un known) MD Da) (unknown) (no (unknown) (unknown) Medications (units (un known) date) unknown) (unknown) (no (unknown) (unknown) Mother Cancer (u nits (unknown) date) unknown) (unknown) (no (unknown) (unknown) Neuropathy (Unknown) (uni ts (unknown) date) unknown) (unknown) (no (unknown) (unknown) Osteopenia (07/2016) (uni ts (unknown) date) unknown) (unknown) (no (unknown) (unknown) PFSH (units (unkno wn) date) unknown) (unknown) (no (unknown) (unknown) Patient: Tyshawn Camara (units (unknown) date) MR#: [id number] unknown) (unknown) (no (unknown) (unknown) Penicillins Allergy (unit s (unknown) date) (Unknown, Verified 12/13/22 un known) 14:36) (unknown) (no (unknown) (unknown) Position Sitting (units (unknown) date) unknown) (unknown) (no (unknown) (unknown) Previous occupational (un its (unknown) date) history: retired unknown) (unknown) (no (unknown) (unknown) Pulse 65 (units (unkno wn) date) unknown) (unknown) (no (unknown) (unknown) Pulse Oximetry (%) 94 (un its (unknown) date) unknown) (unknown) (no (unknown) (unknown) Pulse Source Monitor (uni ts (unknown) date) unknown) (unknown) (no (unknown) (unknown) QAC #30 mL 11/02/20 [Rx ( units (unknown) date) Confirmed 12/13/22] unknown) (unknown) (no (unknown) (unknown) Reason For Visit (units (unknown) date) unknown) (unknown) (no (unknown) (unknown) Relief) 1 spray intranasal (units (unknown) date) QDAY ##3 02/14/21 [Rx unknown) Confirmed 12/13/22] (unknown) (no (unknown) (unknown) Secondhand smoke exposure (units (unknown) date) unknown) (unknown) (no (unknown) (unknown) Signed By: (units (unk nown) date) unknown) (unknown) (no (unknown) (unknown) Smoking Status: Never (un its (unknown) date) smoker unknown) (unknown) (no (unknown) (unknown) Social History (Updated ( units (unknown) date) 08/20/22 @ 12:32 by Valentina puckett) SHEA Lopez) (unknown) (no (unknown) (unknown) Stroke (Unknown) (units (unknown) date) unknown) (unknown) (no (unknown) (unknown) Surgical History (Updated (units (unknown) date) 11/09/22 @ 11:34 by Abril Robin un known) SHEA Churchill) (unknown) (no (unknown) (unknown) This note may have been ( units (unknown) date) all or partially generated kamilla puckett) using voice recognition (unknown) (no (unknown) (unknown) Tobacco Status (units (unknown) date) unknown) (unknown) (no (unknown) (unknown) Type(s) of exercise: none (units (unknown) date) unknown) (unknown) (no (unknown) (unknown) Urology Office Visit (uni ts (unknown) date) unknown) (unknown) (no (unknown) (unknown) Visit Reasons: 2-3WK, KUB (units (unknown) date) review unknown) (unknown) (no (unknown) (unknown) Vitals (units (unkno wn) date) unknown) (unknown) (no (unknown) (unknown) Weight 200 lb (units ( unknown) date) unknown) (unknown) (no (unknown) (unknown) [Rx Confirmed 12/13/22] ( units (unknown) date) unknown) (unknown) (no (unknown) (unknown) alcohol intake: current ( units (unknown) date) unknown) (unknown) (no (unknown) (unknown) alendronate 35 mg tablet (units (unknown) date) 35 mg PO Q WEEK #12 tabs unkno wn) 11/18/20 [Rx Confirmed (unknown) (no (unknown) (unknown) alfuzosin 10 mg (units (unknown) date) tablet,extended release 24 unk nown) hr 10 mg PO QDAY #90 tabs 08/19/20 (unknown) (no (unknown) (unknown) amlodipine 10 mg tablet 10 (units (unknown) date) mg PO Q DAY #90 tabs unknown) 08/19/20 [Rx Confirmed 12/13/22] (unknown) (no (unknown) (unknown) atenolol 100 mg tablet 100 (units (unknown) date) mg PO Q DAY #90 tabs unknown) 08/19/20 [Rx Confirmed 12/13/22] (unknown) (no (unknown) (unknown) atorvastatin 20 mg tablet (units (unknown) date) (Lipitor) 20 mg PO HS #90 unkn own) tabs 08/19/20 [Rx Confirmed (unknown) (no (unknown) (unknown) caffeine: Yes (units ( unknown) date) unknown) (unknown) (no (unknown) (unknown) ciprofloxacin Allergy (un its (unknown) date) (Unknown, Verified 12/13/22 un known) 14:36) (unknown) (no (unknown) (unknown) epinephrine 0.3 mg/0.3 mL (units (unknown) date) injection, auto-injector unkno wn) (EpiPen 2-Donte) 0.3 mg (0.3 (unknown) (no (unknown) (unknown) fluticasone propionate 50 (units (unknown) date) mcg/actuation nasal unknown) spray,suspension (Flonase Allergy (unknown) (no (unknown) (unknown) have occurred. If there ( units (unknown) date) are any questions, please unkn own) contact the Medical Records (unknown) (no (unknown) (unknown) household members: spouse (units (unknown) date) unknown) (unknown) (no (unknown) (unknown) insulin aspart U-100 100 (units (unknown) date) unit/mL subcutaneous unknown) solution 25 unit (0.25 mL) SUBCUT (unknown) (no (unknown) (unknown) insulin glargine 100 (uni ts (unknown) date) unit/mL subcutaneous unknown) solution (Lantus U-100 Insulin) 20 (unknown) (no (unknown) (unknown) insulin syringe-needle (u nits (unknown) date) U-100 1 mL 29 gauge x 1/2' unk nown) (Advocate Syringes) #100 ea (unknown) (no (unknown) (unknown) isosorbide mononitrate 30 (units (unknown) date) mg tablet,extended release unk nown) 24 hr 60 mg PO DAILY #90 (unknown) (no (unknown) (unknown) levothyroxine 112 mcg (un its (unknown) date) tablet 112 mcg PO QAM #90 unkn own) tabs 02/04/20 [Rx Confirmed (unknown) (no (unknown) (unknown) loratadine 10 mg tablet 10 (units (unknown) date) mg PO DAILY 07/10/22 unknown) [History Confirmed 12/13/22] (unknown) (no (unknown) (unknown) mL) IM ONCE #2 ea 06/19/19 (units (unknown) date) [Rx Confirmed 12/13/22] unknow n) (unknown) (no (unknown) (unknown) marital status: ( units (unknown) date) unknown) (unknown) (no (unknown) (unknown) may occur. Occasional (un its (unknown) date) wrong-word or 'sound-alike' un known) substitutions may have (unknown) (no (unknown) (unknown) number of children: 3 (un its (unknown) date) unknown) (unknown) (no (unknown) (unknown) occupational status: other (units (unknown) date) unknown) (unknown) (no (unknown) (unknown) occurred due to the (unit s (unknown) date) inherent limitations of unknow n) voice recognition software. Please (unknown) (no (unknown) (unknown) omeprazole 20 mg (units (unknown) date) capsule,delayed release 40 unk nown) mg PO DAILY #90 caps 07/10/22 [Rx (unknown) (no (unknown) (unknown) phenazopyridine 200 mg (u nits (unknown) date) tablet (Pyridium) 200 mg PO un known) TID PRN Bladder irritation (unknown) (no (unknown) (unknown) read the note carefully ( units (unknown) date) and recognize, using unknown) context, where these substitutions (unknown) (no (unknown) (unknown) second hand exposure: No (units (unknown) date) unknown) (unknown) (no (unknown) (unknown) software. Although every (units (unknown) date) effort is made to edit unknown ) content, business management consultant errors (unknown) (no (unknown) (unknown) substance use type: does (units (unknown) date) not use unknown) (unknown) (no (unknown) (unknown) sulfamethoxazole [From (u nits (unknown) date) Bactrim] Allergy (Unknown, unk nown) Verified 12/13/22 14:36) (unknown) (no (unknown) (unknown) tabs 07/10/22 [Rx (units (unknown) date) Confirmed 12/13/22] unknown) (unknown) (no (unknown) (unknown) trimethoprim [From (units (unknown) date) Bactrim] Allergy (Unknown, unk nown) Verified 12/13/22 14:36) (unknown) (no (unknown) (unknown) unit (0.2 mL) SUBCUT HS #3 (units (unknown) date) vials 02/10/20 [Rx unknown) Confirmed 12/13/22] Result panel 27 (unknown) (no (unknown) (unknown) (no value) (units (unk nown) date) unknown) (unknown) (no (unknown) (unknown) #30 tabs 11/13/22 [Rx (un its (unknown) date) Confirmed 12/13/22] unknown) (unknown) (no (unknown) (unknown) (1) Left renal stone: (un its (unknown) date) unknown) (unknown) (no (unknown) (unknown) (2) Urge incontinence: (u nits (unknown) date) unknown) (unknown) (no (unknown) (unknown) (3) 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 unknown) (unknown) (no (unknown) (unknown) Abnormal ultrasound of (u nits (unknown) date) prostate unknown) (unknown) (no (unknown) (unknown) Iza Naranjo lancets - (units (unknown) date) Softclix #250 ea 11/18/20 unkn own) [Rx Confirmed 12/13/22] (unknown) (no (unknown) (unknown) Add'l Complaint: (units (unknown) date) unknown) (unknown) (no (unknown) (unknown) Age/Sex: 77 / M Date of ( units (unknown) date) Service: unknown) (unknown) (no (unknown) (unknown) Alcohol Prep Pads #250 ea (units (unknown) date) 11/18/20 [Rx Confirmed unknown ) 12/13/22] (unknown) (no (unknown) (unknown) Allergies (units (unkn own) date) unknown) (unknown) (no (unknown) (unknown) JERMAINE Edward [id number] (unit s (unknown) date) unknown) (unknown) (no (unknown) (unknown) Assessment + Plan (units (unknown) date) unknown) (unknown) (no (unknown) (unknown) Assessment and plan: (uni ts (unknown) date) Patient doing well post unknow n) lithotripsy continues to pass (unknown) (no (unknown) (unknown) Asymptomatic microscopic (units (unknown) date) hematuria unknown) (unknown) (no (unknown) (unknown) Attending Dr: Maxx Roberson (units (unknown) date) unknown) (unknown) (no (unknown) (unknown) BMI 31.3 (units (unkno wn) date) unknown) (unknown) (no (unknown) (unknown) BP 165/72 H (units (un known) date) unknown) (unknown) (no (unknown) (unknown) BPH (benign prostatic (un its (unknown) date) hyperplasia) (Unknown) unknown ) (unknown) (no (unknown) (unknown) Benign prostatic (units (unknown) date) hyperplasia, lower urinary unk nown) tract symptoms, history of elevated (unknown) (no (unknown) (unknown) Blood Pressure Location Rt (units (unknown) date) brachial unknown) (unknown) (no (unknown) (unknown) CKD (chronic kidney (unit s (unknown) date) disease) (Unknown) unknown) (unknown) (no (unknown) (unknown) Chief Complaint (units (unknown) date) unknown) (unknown) (no (unknown) (unknown) Chief Complaint: Left (un its (unknown) date) renal calculus follow-up unkno wn) lithotripsy (unknown) (no (unknown) (unknown) Co Q-10 11/13/22 [History (units (unknown) date) Confirmed 12/13/22] unknown) (unknown) (no (unknown) (unknown) Code(s): (units (unkno wn) date) unknown) (unknown) (no (unknown) (unknown) Colon polyps (Unknown) (u nits (unknown) date) unknown) (unknown) (no (unknown) (unknown) Confirmed 12/13/22] (unit s (unknown) date) unknown) (unknown) (no (unknown) (unknown) Currently he is taking (u nits (unknown) date) alfuzosin. He reports he is un known) bothered primarily by (unknown) (no (unknown) (unknown) : 1945 (units (unknown) date) Acct:[id number] unknown) (unknown) (no (unknown) (unknown) DOG DANDER Allergy (Mild, (units (unknown) date) Uncoded 12/13/22 14:36) unknow n) (unknown) (no (unknown) (unknown) Dept at . (u nits (unknown) date) unknown) (unknown) (no (unknown) (unknown) Details: (units (unkno wn) date) unknown) (unknown) (no (unknown) (unknown) Diabetes (Unknown) (units (unknown) date) unknown) (unknown) (no (unknown) (unknown) Diabetic Shoes + Insoles (units (unknown) date) #4 ea 08/28/22 [Rx unknown) Confirmed 12/13/22] (unknown) (no (unknown) (unknown) Documented By: Maxx Roberson (units (unknown) date) Rlyee BROTHERS 12/13/22 1420 unknown) (unknown) (no (unknown) (unknown) Elevated PSA (units (u nknown) date) unknown) (unknown) (no (unknown) (unknown) Family History (Reviewed (units (unknown) date) 08/21/18 @ 15:25 by Greer hicks) Kimberley Flores MD) (unknown) (no (unknown) (unknown) Father Cancer (u nits (unknown) date) unknown) (unknown) (no (unknown) (unknown) GERD (gastroesophageal (u nits (unknown) date) reflux disease) (Unknown) unkn own) (unknown) (no (unknown) (unknown) Glucose: Test Strips #250 (units (unknown) date) ea 11/18/20 [Rx Confirmed unkn own) 12/13/22] (unknown) (no (unknown) (unknown) HPI (units (unkno wn) date) unknown) (unknown) (no (unknown) (unknown) Hearing loss () ( units (unknown) date) unknown) (unknown) (no (unknown) (unknown) Height 5 ft 7 in (units (unknown) date) unknown) (unknown) (no (unknown) (unknown) History of (units (unk nown) date) esophagogastroduodenoscopy unk nown) (EGD) (08/2018) (unknown) (no (unknown) (unknown) History of kidney stones (units (unknown) date) unknown) (unknown) (no (unknown) (unknown) History of tonsillectomy (units (unknown) date) unknown) (unknown) (no (unknown) (unknown) Hypertension (Unknown) (u nits (unknown) date) unknown) (unknown) (no (unknown) (unknown) Hypothyroidism (Unknown) (units (unknown) date) unknown) (unknown) (no (unknown) (unknown) Insulin Aspart sliding (u nits (unknown) date) scale SUBCUT 10/27/19 unknown) [History Confirmed 12/13/22] (unknown) (no (unknown) (unknown) Intake Note: (units (u nknown) date) unknown) (unknown) (no (unknown) (unknown) Intake performed by: (uni ts (unknown) date) Brenda Calhoun unknown) (unknown) (no (unknown) (unknown) Intake (units (unkno wn) date) unknown) (unknown) (no (unknown) (unknown) Intake- Clincial Staff (u nits (unknown) date) unknown) (unknown) (no (unknown) (unknown) [facility] (units (unknown) date) unknown) (unknown) (no (unknown) (unknown) Kidney stone (units (u nknown) date) unknown) (unknown) (no (unknown) (unknown) Left renal stone (units (unknown) date) unknown) (unknown) (no (unknown) (unknown) Loc: [facility] (units (unkno wn) date) unknown) (unknown) (no (unknown) (unknown) Medical History (Updated (units (unknown) date) 10/22/22 @ 13:43 by Maxx Mckee un known) MD Da) (unknown) (no (unknown) (unknown) Medications (units (un known) date) unknown) (unknown) (no (unknown) (unknown) Mother Cancer (u nits (unknown) date) unknown) (unknown) (no (unknown) (unknown) N20.0 - Calculus of kidney (units (unknown) date) unknown) (unknown) (no (unknown) (unknown) N39.41 - Urge incontinence (units (unknown) date) unknown) (unknown) (no (unknown) (unknown) Neuropathy (Unknown) (uni ts (unknown) date) unknown) (unknown) (no (unknown) (unknown) Osteopenia (07/2016) (uni ts (unknown) date) unknown) (unknown) (no (unknown) (unknown) PFSH (units (unkno wn) date) unknown) (unknown) (no (unknown) (unknown) PSA, asymptomatic (units (unknown) date) microscopic hematuria unknown) (unknown) (no (unknown) (unknown) Patient: Tyshawn Camara (units (unknown) date) MR#: [id number] unknown) (unknown) (no (unknown) (unknown) Penicillins Allergy (unit s (unknown) date) (Unknown, Verified 12/13/22 un known) 14:36) (unknown) (no (unknown) (unknown) Plan (units (unkno wn) date) unknown) (unknown) (no (unknown) (unknown) Position Sitting (units (unknown) date) unknown) (unknown) (no (unknown) (unknown) Previous occupational (un its (unknown) date) history: retired unknown) (unknown) (no (unknown) (unknown) Pulse 65 (units (unkno wn) date) unknown) (unknown) (no (unknown) (unknown) Pulse Oximetry (%) 94 (un its (unknown) date) unknown) (unknown) (no (unknown) (unknown) Pulse Source Monitor (uni ts (unknown) date) unknown) (unknown) (no (unknown) (unknown) QAC #30 mL 11/02/20 [Rx ( units (unknown) date) Confirmed 12/13/22] unknown) (unknown) (no (unknown) (unknown) Reason For Visit (units (unknown) date) unknown) (unknown) (no (unknown) (unknown) Relief) 1 spray intranasal (units (unknown) date) QDAY ##3 02/14/21 [Rx unknown) Confirmed 12/13/22] (unknown) (no (unknown) (unknown) Secondhand smoke exposure (units (unknown) date) unknown) (unknown) (no (unknown) (unknown) Signed By: <Electronically (units (unknown) date) signed by Maxx Roberson MD> un known) (unknown) (no (unknown) (unknown) Signed (units (unkno wn) date) unknown) (unknown) (no (unknown) (unknown) Smoking Status: Never (un its (unknown) date) smoker unknown) (unknown) (no (unknown) (unknown) Social History (Updated ( units (unknown) date) 08/20/22 @ 12:32 by Valentina jasminek nown) SHEA Lopez) (unknown) (no (unknown) (unknown) Status: Acute (units ( unknown) date) unknown) (unknown) (no (unknown) (unknown) Status: Chronic (units (unknown) date) unknown) (unknown) (no (unknown) (unknown) Stroke (Unknown) (units (unknown) date) unknown) (unknown) (no (unknown) (unknown) Surgical History (Updated (units (unknown) date) 11/09/22 @ 11:34 by Abril Robin un known) SHEA Churchill) (unknown) (no (unknown) (unknown) This 77-year-old male (un its (unknown) date) returns to urology clinic unkn own) in follow-up of his recent (unknown) (no (unknown) (unknown) This note may have been ( units (unknown) date) all or partially generated kamilla puckett) using voice recognition (unknown) (no (unknown) (unknown) Tobacco Status (units (unknown) date) unknown) (unknown) (no (unknown) (unknown) Type(s) of exercise: none (units (unknown) date) unknown) (unknown) (no (unknown) (unknown) Urology Office Visit (uni ts (unknown) date) unknown) (unknown) (no (unknown) (unknown) Visit Reasons: 2-3WK, KUB (units (unknown) date) review unknown) (unknown) (no (unknown) (unknown) Vitals (units (unkno wn) date) unknown) (unknown) (no (unknown) (unknown) Weight 200 lb (units ( unknown) date) unknown) (unknown) (no (unknown) (unknown) Z96.0 - Presence of (unit s (unknown) date) urogenital implants unknown) (unknown) (no (unknown) (unknown) [Rx Confirmed 12/13/22] ( units (unknown) date) unknown) (unknown) (no (unknown) (unknown) alcohol intake: current ( units (unknown) date) unknown) (unknown) (no (unknown) (unknown) alendronate 35 mg tablet (units (unknown) date) 35 mg PO Q WEEK #12 tabs unkno wn) 11/18/20 [Rx Confirmed (unknown) (no (unknown) (unknown) alfuzosin 10 mg (units (unknown) date) tablet,extended release 24 unk nown) hr 10 mg PO QDAY #90 tabs 08/19/20 (unknown) (no (unknown) (unknown) amlodipine 10 mg tablet 10 (units (unknown) date) mg PO Q DAY #90 tabs unknown) 08/19/20 [Rx Confirmed 12/13/22] (unknown) (no (unknown) (unknown) atenolol 100 mg tablet 100 (units (unknown) date) mg PO Q DAY #90 tabs unknown) 08/19/20 [Rx Confirmed 12/13/22] (unknown) (no (unknown) (unknown) atorvastatin 20 mg tablet (units (unknown) date) (Lipitor) 20 mg PO HS #90 unkn own) tabs 08/19/20 [Rx Confirmed (unknown) (no (unknown) (unknown) caffeine: Yes (units ( unknown) date) unknown) (unknown) (no (unknown) (unknown) ciprofloxacin Allergy (un its (unknown) date) (Unknown, Verified 12/13/22 un known) 14:36) (unknown) (no (unknown) (unknown) dissipates. So overall (u nits (unknown) date) doing well plan would be to un known) return to clinic in 2 weeks (unknown) (no (unknown) (unknown) epinephrine 0.3 mg/0.3 mL (units (unknown) date) injection, auto-injector unkno wn) (EpiPen 2-Donte) 0.3 mg (0.3 (unknown) (no (unknown) (unknown) extracorporeal shockwave (units (unknown) date) lithotripsy for left-sided unk nown) stone. He comes with a KUB (unknown) (no (unknown) (unknown) fluticasone propionate 50 (units (unknown) date) mcg/actuation nasal unknown) spray,suspension (Flonase Allergy (unknown) (no (unknown) (unknown) fragments I think he has (units (unknown) date) minimal residual at this unkno wn) point but enough that we need (unknown) (no (unknown) (unknown) frequency sounds as if he (units (unknown) date) may have been started on a unk nown) diuretic unsure about this (unknown) (no (unknown) (unknown) have occurred. If there ( units (unknown) date) are any questions, please unkn own) contact the Medical Records (unknown) (no (unknown) (unknown) he rides his lawnmower he (units (unknown) date) does see little bit of unknown ) blood but this quickly (unknown) (no (unknown) (unknown) his stent and metabolic ( units (unknown) date) workup and address his unknown ) lower urinary tract symptoms. (unknown) (no (unknown) (unknown) household members: spouse (units (unknown) date) unknown) (unknown) (no (unknown) (unknown) incontinence will await ( units (unknown) date) till the stent was removed unk nown) in the dust settle before (unknown) (no (unknown) (unknown) insulin aspart U-100 100 (units (unknown) date) unit/mL subcutaneous unknown) solution 25 unit (0.25 mL) SUBCUT (unknown) (no (unknown) (unknown) insulin glargine 100 (uni ts (unknown) date) unit/mL subcutaneous unknown) solution (Lantus U-100 Insulin) 20 (unknown) (no (unknown) (unknown) insulin syringe-needle (u nits (unknown) date) U-100 1 mL 29 gauge x 1/2' unk nown) (Advocate Syringes) #100 ea (unknown) (no (unknown) (unknown) isosorbide mononitrate 30 (units (unknown) date) mg tablet,extended release unk nown) 24 hr 60 mg PO DAILY #90 (unknown) (no (unknown) (unknown) levothyroxine 112 mcg (un its (unknown) date) tablet 112 mcg PO QAM #90 unkn own) tabs 02/04/20 [Rx Confirmed (unknown) (no (unknown) (unknown) loratadine 10 mg tablet 10 (units (unknown) date) mg PO DAILY 07/10/22 unknown) [History Confirmed 12/13/22] (unknown) (no (unknown) (unknown) mL) IM ONCE #2 ea 06/19/19 (units (unknown) date) [Rx Confirmed 12/13/22] unknow n) (unknown) (no (unknown) (unknown) making changes there. (un its (unknown) date) unknown) (unknown) (no (unknown) (unknown) marital status: ( units (unknown) date) unknown) (unknown) (no (unknown) (unknown) may occur. Occasional (un its (unknown) date) wrong-word or 'sound-alike' un known) substitutions may have (unknown) (no (unknown) (unknown) number of children: 3 (un its (unknown) date) unknown) (unknown) (no (unknown) (unknown) occupational status: other (units (unknown) date) unknown) (unknown) (no (unknown) (unknown) occurred due to the (unit s (unknown) date) inherent limitations of unknow n) voice recognition software. Please (unknown) (no (unknown) (unknown) omeprazole 20 mg (units (unknown) date) capsule,delayed release 40 unk nown) mg PO DAILY #90 caps 07/10/22 [Rx (unknown) (no (unknown) (unknown) phenazopyridine 200 mg (u nits (unknown) date) tablet (Pyridium) 200 mg PO un known) TID PRN Bladder irritation (unknown) (no (unknown) (unknown) read the note carefully ( units (unknown) date) and recognize, using unknown) context, where these substitutions (unknown) (no (unknown) (unknown) second hand exposure: No (units (unknown) date) unknown) (unknown) (no (unknown) (unknown) significant portion of the (units (unknown) date) residual though I think unknow n) there were just a few still (unknown) (no (unknown) (unknown) software. Although every (units (unknown) date) effort is made to edit unknown ) content, business management consultant errors (unknown) (no (unknown) (unknown) stent removal. With regard (units (unknown) date) to his lower urinary tract unk nown) symptoms, urge (unknown) (no (unknown) (unknown) substance use type: does (units (unknown) date) not use unknown) (unknown) (no (unknown) (unknown) sulfamethoxazole [From (u nits (unknown) date) Bactrim] Allergy (Unknown, unk nown) Verified 12/13/22 14:36) (unknown) (no (unknown) (unknown) tabs 07/10/22 [Rx (units (unknown) date) Confirmed 12/13/22] unknown) (unknown) (no (unknown) (unknown) the left kidney appear (u nits (unknown) date) much less prominent he unknown ) looks appears these past a (unknown) (no (unknown) (unknown) there stent is in good (u nits (unknown) date) position and patient has unkno wn) minimally bothered by it. When (unknown) (no (unknown) (unknown) to extend things have him (units (unknown) date) back in 2 weeks with a KUB unk nown) and then likely move toward (unknown) (no (unknown) (unknown) trimethoprim [From (units (unknown) date) Bactrim] Allergy (Unknown, unk nown) Verified 12/13/22 14:36) (unknown) (no (unknown) (unknown) unit (0.2 mL) SUBCUT HS #3 (units (unknown) date) vials 02/10/20 [Rx unknown) Confirmed 12/13/22] (unknown) (no (unknown) (unknown) we will see. (units (u nknown) date) unknown) (unknown) (no (unknown) (unknown) which is reviewed and (un its (unknown) date) reviewed with the patient. unk nown) This shows that the stones in (unknown) (no (unknown) (unknown) with a repeat KUB in a (u nits (unknown) date) things look good at that unkno wn) point will move toward removing Social History date description facility 2022-10-22 00:00 Never smoked tobacco (finding) [facility] 2022-11-13 00:00 Never smoked tobacco (finding) [facility] 2022-11-26 00:00 Never smoked tobacco (finding) [facility] 2022-12-13 00:00 Never smoked tobacco (finding) [facility] Vital Signs date measurement value units 2022-10-22 00:00 BMI 31.9 kg/m2 2022-10-22 00:00 BP_diastolic 77 mmHg 2022-10-22 00:00 BP_systolic 151 mmHg 2022-10-22 00:00 heart_rate 61 /min 2022-10-22 00:00 height_metric 170.18 cm 2022-10-22 00:00 height_standard 67 in 2022-10-22 00:00 respiration_rate 16 /min 2022-10-22 00:00 weight_metric 92.53 kg 2022-10-22 00:00 weight_standard 203.99 lb 2022-11-13 00:00 BMI 31.9 kg/m2 2022-11-13 00:00 BP_diastolic 94 mmHg 2022-11-13 00:00 BP_systolic 190 mmHg 2022-11-13 00:00 heart_rate 72 /min 2022-11-13 00:00 height_metric 170.18 cm 2022-11-13 00:00 height_standard 67 in 2022-11-13 00:00 o2_saturation 93 % 2022-11-13 00:00 respiration_rate 10 /min 2022-11-13 00:00 temperature_metric 36.44 C 2022-11-13 00:00 temperature_standard 97.6 F 2022-11-13 00:00 weight_metric 92.53 kg 2022-11-13 00:00 weight_standard 203.99 lb 2022-11-26 00:00 BMI 30.4 kg/m2 2022-11-26 00:00 BP_diastolic 82 mmHg 2022-11-26 00:00 BP_systolic 158 mmHg 2022-11-26 00:00 heart_rate 64 /min 2022-11-26 00:00 height_metric 170.18 cm 2022-11-26 00:00 height_standard 67 in 2022-11-26 00:00 o2_saturation 96 % 2022-11-26 00:00 weight_metric 87.99 kg 2022-11-26 00:00 weight_standard 193.98 lb 2022-12-13 00:00 BMI 31.3 kg/m2 2022-12-13 00:00 BP_diastolic 72 mmHg 2022-12-13 00:00 BP_systolic 165 mmHg 2022-12-13 00:00 heart_rate 65 /min 2022-12-13 00:00 height_metric 170.18 cm 2022-12-13 00:00 height_standard 67 in 2022-12-13 00:00 o2_saturation 94 % 2022-12-13 00:00 weight_metric 90.71 kg 2022-12-13 00:00 weight_standard 199.98 lb
--- NOTE | 2022-12-14 17:52 | XRAY Report ---
PROCEDURE: Chest 1 View X-Ray INDICATIONS: Chest Pain TECHNIQUE: One view of the chest was acquired. COMPARISON: None. FINDINGS: Surgical changes and devices: None. Lungs and pleura: No pleural effusions or pneumothorax. Lungs are clear. Mediastinum: Mediastinal contours appear normal. Heart size is normal. Bones and chest wall: No suspicious bony lesions. Overlying soft tissues appear unremarkable. IMPRESSION: No acute cardiopulmonary disease. Reviewed by: Susi Mathews MD on 12/14/2022 5:50 PM PDT Approved by: Susi Mathews MD on 12/14/2022 5:50 PM PDT Station ID: [id number]
[2022-12-14 17:53] LABS: INR 1.2 (0.8-1.2); PT - PROTHROMBIN TIME 12.9 secs (9.9-12.6)
--- NOTE | 2022-12-14 18:36 | XRAY Report ---
PROCEDURE: Abdomen 1 View X-Ray INDICATIONS: recent left ureter stent placement TECHNIQUE: One view of the abdomen acquired. COMPARISON: None. FINDINGS: Surgical changes and devices: There is a left ureteral stent with the proximal and distal loops forme d within the area left renal pelvis and urinary bladder, respectively. No stones are visualized. Bowel: Bowel gas pattern is normal. Soft tissues: No suspicious abdominal calcifications. Visualized solid organ contours appear normal in size. Bones: No suspicious bony lesions. IMPRESSION: Expected position of the left ureteral stent. Reviewed by: Susi Mathews MD on 12/14/2022 6:35 PM PDT Approved by: Susi Mathews MD on 12/14/2022 6:35 PM PDT Station ID: [id number]
--- NOTE | 2022-12-14 19:30 | MRI Report ---
PROCEDURE: ANGIO HEAD WO INDICATIONS: syncope; neck pain TECHNIQUE: Noncontrast axial 3-D [id number] MR angiogram, with 3-dimensional maximum intensity projection (M IP) reformats of the internal carotid arteries and posterior circulation then performed. COMPARISON: MRI brain, 06/15/2009. FINDINGS: Image quality: Excellent. Anterior circulation: Intracranial internal carotid arteries demonstrate normal size and intralumina l flow signal. The flow within the paired anterior cerebral arteries is normal and symmetric. The f low within the middle cerebral arteries is normal and symmetric. The anterior communicating artery i s seen. No stenoses, occlusions, or aneurysms. Posterior circulation: Visualized portions of the vertebral arteries demonstrate normal caliber, and join to form a normal appearing basilar artery. The flow within the posterior cerebral arteries is normal and symmetric. No stenoses, occlusions, or aneurysms. IMPRESSION: 1. Normal anterior and posterior circulations. No high-grade stenosis or occlusion. Reviewed by: Susi Mathews MD on 12/14/2022 7:29 PM PDT Approved by: Susi Mathews MD on 12/14/2022 7:29 PM PDT Station ID: [id number]
--- NOTE | 2022-12-14 20:20 | Ultrasound Report ---
PROCEDURE: Carotid Doppler Complete INDICATIONS: neck pain, syncope; TECHNIQUE: Color and pulse Doppler interrogation was performed of both carotid systems, with image documentation and velocity measurements. COMPARISON: Correlation is made with MR brain angiogram, 12/14/2022. FINDINGS: The common carotid arteries are patent and demonstrate normal flow velocities. By velocity criteria, no hemodynamically significant stenosis can be seen within the internal carotid arteries. Normal sapna earing waveforms are seen. Atherosclerotic change can be seen. Note is made of tortuous internal and external carotid arteries. Antegrade flow seen within both vertebral arteries. The study is limited by vessel tortuosity is well as patient coughing motion during the examination. IMPRESSION: No hemodynamically significant stenosis is seen. Note: Concordant preliminary findings given by the mold designer upon the completion of the examination to Sara Ryan. Reviewed by: Stan Felix MD on 12/14/2022 7:19 PM MAGALIE Approved by: Stan Felix MD on 12/14/2022 7:19 PM MAGALIE Station ID: [id number]
[2022-12-14 20:52] VITALS: BP 120/68
== END 2022-12-14 20:51 | disposition home or self-care (01) ==
LOC: EDUNIT# → ED 17:12
DX: R55 Syncope and collapse (principal); R79.89 Other specified abnormal findings of blood chemistry; N28.9 Disorder of kidney and ureter, unspecified; Z96.0 Presence of urogenital implants
CPT/HCPCS: 36415; 80053; 83690; 83880; 84484; 85025; 85610; 93005; 93880; 96360; 96361; 99284